=== PATIENT | female | born 2000 | race Caucasian/White ===

== ENCOUNTER 2024-04-08 12:59 | Observation (INO) | payer OTHER, SELFPAY ==
--- NOTE | 2024-04-08 13:18 | US_ITS ---
[place] [id number] Patient Name: RYLEY CARRILLO MRN: [id number] date: 2000 Sex: F Assigned Patient Location: [facility] Current Patient Location: [facility] Accession/Order Number: [id number] Exam Date: 04/08/2024 13:40 Report Date: 04/08/2024 14:28 At the request of: LEX CALDERON Procedure: US OB transvaginal EXAMINATION: US OB transvaginal HISTORY: Dating US COMPARISON: No relevant comparison available. FINDINGS: Transvaginal images Rockwell intrauterine gestation Gestational sac: 1.4 cm, 6 weeks 3 days CRL: 5.1 mm, 6 weeks 2 days Yolk sac: 2.3 mm Heart rate: 103 BPM Cervix: Closed, 4.3 cm The uterus is normal, anteverted The right ovary is normal measuring 4.3 x 2.4 x 2.5 cm The left ovary measures 4.0 x 2.7 x 2.0 cm, corpus luteal cyst Clinical age: 7 weeks 6 days Clinical TAYLOR: 11/19/2024 Ultrasound age: 6 weeks 2 days Ultrasound TAYLOR: 11/30/2024 US/US OB transvaginal IMPRESSION: Viable rockwell intrauterine gestation measuring 6 weeks 2 days Electronically authenticated by: BRYSON STAUFFER Date: 04/08/2024 14:28
[2024-04-08] MEDS: ONDANSETRON PF 4 MG/2 ML VIAL 8 MG IV ×2 (14:10→20:59)
[2024-04-08] MEDS: MULTIVIT INFUSN ADULT K IV (14:20)
[2024-04-08] MEDS: LACTATED RINGER S IV (14:20)
[2024-04-08 14:54] LABS: Bilirubin Urine NEGATIVE (NEGATIVE); Blood Urine NEGATIVE (NEGATIVE); Clarity Urine CLEAR (CLEAR); Color Urine YELLOW (YELLOW); Glucose Urine UA NEGATIVE (NEGATIVE); Ketones Urine >=80 mg/dL (NEGATIVE); Leukocyte Esterase Urine NEGATIVE (NEGATIVE); Nitrite Urine NEGATIVE (NEGATIVE); Protein Urine TRACE mg/dL (NEG/TRACE); Specific Gravity Urine >=1.030 (1.005-1.025); Urobilinogen Urine 0.2 EU/dL (0.2-1.0)
[2024-04-08 14:56] LABS: Urine Microscopic Indicated NO
[2024-04-08 15:56] VITALS: TEMP 37
[2024-04-08 15:57] VITALS: BP 104/57; PULSE 75
[2024-04-08 21:03] VITALS: BP 100/56; PULSE 73
== END 2024-04-08 21:15 | disposition home or self-care (01) ==
PROVIDERS: Admitting Provider Midwife; Visit Provider Midwife
DX: O21.0 Mild hyperemesis gravidarum (principal); Z3A.01 Less than 8 weeks gestation of pregnancy
CPT/HCPCS: 76817; 81003; 96374; 96375; 96376; G0378; G0379; J2405

== ENCOUNTER 2024-07-14 12:43 | Outpatient (OUT) | payer OTHER, SELFPAY ==
--- NOTE | 2024-07-14 12:49 | US_ITS ---
[address] [address] Patient Name: RYLEY CARRILLO MRN: [id number] date: 2000 Sex: F Assigned Patient Location: US Current Patient Location: Accession/Order Number: [id number] Exam Date: 07/14/2024 13:00 Report Date: 07/15/2024 04:40 At the request of: LEX CALDERON Procedure: US OB cervical length EXAMINATION: US OB anatomy, US OB cervical length HISTORY: O26.92 related condition COMPARISON: Ultrasound OB transvaginal 04/08/2024 TECHNIQUE: Transabdominal sonographic examination was performed for obstetrical and evaluation. FINDINGS: Number: 1 Heart Rate: 139.08 bpm H.B. /min Amniotic Fluid Volume: Subjectively normal. Placental Location: Anterior with lower margin 4.8 cm from os. Cervix Length: 4.35 cm ; closed. ANATOMY: Normal Structures -cerebellum, choroid plexus, cisterna magna, lateral cerebral ventricles, orbits, midline falx, hard palate, four-chamber heart, RVOT, LVOT, stomach, kidneys, bladder, umbilical cord insertion into abdomen, three-vessel cord, cervical spine, thoracic spine, lumbar spine, sacral spine, right upper extremity, left upper extremity, right lower extremity, left lower extremity. SUBOPTIMALLY SEEN: None ABNORMALITIES: None BIOMETRY: BPD: 4.63 cm; 20 weeks 0 days; 43.30 % HC: 17.80 cm; 20 weeks 2 days; 47.80 % AC: 14.52 cm; 19 weeks 6 days; 33.80 % FL: 2.97 cm; 19 weeks 1 day; 13 % EFW:302.61 g; 19.30 % FL/AC: 20.47 FL/BPD: 64.21 HC/AC: 1.23 GESTATIONAL AGE: Age by EDC: 20 weeks 1 day Age by current US: 19 weeks 6 days TAYLOR by current US: 2024-12-02 TAYLOR by EDC: 2024-11-30 US/US OB cervical length IMPRESSION: 1. Single live intrauterine with growth detailed above. Electronically authenticated by: ANA ESTRADA Date: 07/15/2024 04:40
--- NOTE | 2024-07-14 12:49 | US_ITS ---
[address] [address] Patient Name: RYLEY CARRILLO MRN: [id number] date: 2000 Sex: F Assigned Patient Location: US Current Patient Location: Accession/Order Number: [id number] Exam Date: 07/14/2024 13:00 Report Date: 07/15/2024 04:40 At the request of: LEX CALDERON Procedure: US OB anatomy EXAMINATION: US OB anatomy, US OB cervical length HISTORY: O26.92 related condition COMPARISON: Ultrasound OB transvaginal 04/08/2024 TECHNIQUE: Transabdominal sonographic examination was performed for obstetrical and evaluation. FINDINGS: Number: 1 Heart Rate: 139.08 bpm H.B. /min Amniotic Fluid Volume: Subjectively normal. Placental Location: Anterior with lower margin 4.8 cm from os. Cervix Length: 4.35 cm ; closed. ANATOMY: Normal Structures -cerebellum, choroid plexus, cisterna magna, lateral cerebral ventricles, orbits, midline falx, hard palate, four-chamber heart, RVOT, LVOT, stomach, kidneys, bladder, umbilical cord insertion into abdomen, three-vessel cord, cervical spine, thoracic spine, lumbar spine, sacral spine, right upper extremity, left upper extremity, right lower extremity, left lower extremity. SUBOPTIMALLY SEEN: None ABNORMALITIES: None BIOMETRY: BPD: 4.63 cm; 20 weeks 0 days; 43.30 % HC: 17.80 cm; 20 weeks 2 days; 47.80 % AC: 14.52 cm; 19 weeks 6 days; 33.80 % FL: 2.97 cm; 19 weeks 1 day; 13 % EFW:302.61 g; 19.30 % FL/AC: 20.47 FL/BPD: 64.21 HC/AC: 1.23 GESTATIONAL AGE: Age by EDC: 20 weeks 1 day Age by current US: 19 weeks 6 days TAYLOR by current US: 2024-12-02 TAYLOR by EDC: 2024-11-30 US/US OB anatomy IMPRESSION: 1. Single live intrauterine with growth detailed above. Electronically authenticated by: ANA ESTRADA Date: 07/15/2024 04:40
--- OUTSIDE RECORDS SUMMARY | 2024-07-14 12:53 | XMS_ITS | CCD ---
Author Organization [facility] Care Team Providers Care Radio Performer Name Role Phone Leah Cramer MD Primary Care Provider ISELA SCHMID Attending Unavailable HACKENBURG, LISA Clark Attending Unavailab le SHARMAINE, ISELA Brownlee Attending Unavailable HOPPER, TRICIA Clark Attending Unavailab le HOPPER, TRICIA Clark Attending Unavailab le SHARMAINE, ISELA Brownlee Attending Unavailable HOPPER, TRICIA Clark Attending Unavailab le HOPPER, TRICIA Clark Attending Unavailab le HOPPER, TRICIA Clark Attending Unavailab le SHARMAINE, ISELA Brownlee Attending Unavailable SHARMAINE, ISELA Brownlee Attending Unavailable SHARMAINE, ISELA Brownlee Attending Unavailable HOPPER, TRICIA Clark Attending Unavailab le SHARMAINE, ISELA Brownlee Attending Unavailable SHARMAINE, ISELA S Attending Unavailable HOPPER, TRICIA Clark Attending Unavailab le SHARMAINE, ISELA S Attending Unavailable FLORO, LEX Toribio Attending Unavailable SHARMAINE, ISELA Brownlee Attending Unavailable FLORO, LEX Toribio Attending Unavailable SHARMAINE, ISELA S Attending Unavailable HOPPER, TRICIA Clark Attending Unavailab le FLORO, LEX Toribio Attending Unavailable SHARMAINE, ISELA Brownlee Attending Unavailable HOPPER, TRICIA Clark Attending Unavailab le FLOROLEX Attending Unavailable Allergies Allergy Classification Reported Allergen(s) Allergy Type Date of Onset Reaction(s) Facility (17 sources) Peanut-Containin g Drug Products Drug Allergy 07-17-2023 [facility] Medications Current Medications Medication Drug Class(es) Dates Sig (Normalized) Sig (Original) [id number] 200 actuat albuterol 0.09 mg/actuat metered dose inhaler (17 sources) beta2-Adrenergic Agonist Start: 07-17-2023 End: 07-16-2024 take 2 puff(s) by inhalation every four hours for wheezing albuterol HFA 90 mcg/act inhaler Indications: Wheezing Inhale 2 puffs every 4 (four) hours if needed for wheezing 18 g 07/17/2023 07/16/2024 Active amoxicillin 500 mg oral capsule (2 sources) Penicillin-class Antibacterial Start: 05-26-2024 End: 06-02-2024 take 1 capsule by mouth in the morning amoxicillin (Amoxil) 500 MG capsule Indications: Other non-recurrent acute nonsuppurative otitis media of right ear Take 1 capsule (500 mg) by mouth in the morning and 1 capsule (500 mg) before bedtime. Do all this for 7 days. 14 capsule 05/26/2024 06/02/2024 Active fluticasone propionate 0.05 mg/actuat metered dose nasal spray (17 sources) Corticosteroid Start: 10-08-2023 End: 10-07-2024 take 1 spray(s) nasal route once daily fluticasone (Flonase) 50 MCG/ACT nasal spray Indications: Acute recurrent frontal sinusitis Administer 1 spray into each nostril Daily Shake gently. Before first use, prime pump. After use, clean tip and replace cap. 16 g 2 10/08/2023 10/07/2024 Active hydrOXYzine pamoate 25 mg oral capsule (17 sources) Antihistamine Start: 11-01-2023 take 1 capsule by mouth every eight hours as needed for anxiety and anxiety and anxiety hydrOXYzine pamoate (Vistaril) 25 MG capsule Indications: Anxiety Take 1 capsule (25 mg) by mouth every 8 (eight) hours if needed for itching or anxiety for up to 5 days 10 capsule 11/01/2023 Active ondansetron 8 mg oral tablet (13 sources) Serotonin-3 Receptor Antagonist Start: 06-20-2024 End: 07-20-2024 take 1 tablet by mouth every eight hours for nausea ondansetron (Zofran) 8 MG tablet Indications: Nausea/vomiting in Take 1 tablet (8 mg) by mouth every 8 (eight) hours if needed for nausea 20 tablet 1 06/20/2024 07/20/2024 Active Start: 05-08-2024 End: 06-12-2024 take 1 tablet by mouth every eight hours for nausea ondansetron (Zofran) 8 MG tablet Indications: Nausea/vomiting in Take 1 tablet (8 mg) by mouth every 8 (eight) hours if needed for nausea 20 tablet 1 05/08/2024 06/12/2024 Active sertraline 25 mg oral tablet (17 sources) Serotonin Reuptake Inhibitor Start: 04-24-2024 take 1 tablet by mouth once daily sertraline (Zoloft) 25 MG tablet Indications: Anxiety TAKE 1 TABLET(25 MG) BY MOUTH DAILY 90 tablet 04/24/2024 Active Completed/Discontinued Medications Medication Drug Class(es) Dates Sig (Normalized) Sig (Original) azithromycin 250 mg oral tablet (6 sources) Macrolide Antimicrobial Start: 06-05-2024 End: 06-12-2024 take 2 tablets by mouth once daily azithromycin (Zithromax) 250 MG tablet Indications: Earache on right Take 2 tablets (500 mg) by mouth Daily for 5 days 6 tablet 06/05/2024 06/12/2024 Discontinued (Therapy completed) Problems Active Problems Problem Classification Problem Date Documented Date Episodic/Chronic Anxiety disorders (20 sources) Anxiety; Translations: [Anxiety disorder, unspecified] Onset: 01-30-2023 01-30-2023 Chronic Mood disorders (20 sources) Depressive disorder; Translations: [Depression] Onset: 01-30-2023 01-30-2023 Chronic Other complications of (2 sources) Finding related to ; Translations: [ related conditions, unspecified, second trimester] 07-03-2024 Episodic Other ear and sense organ disorders (2 sources) Otalgia, right ear; Translations: [Otalgia, unspecified] 06-05-2024 Episodic Other ear and sense organ disorders (2 sources) Otalgia, left ear; Translations: [Otalgia, unspecified] 06-12-2024 Episodic Other and delivery including normal (4 sources) Normal ; Translations: [Encounter for supervision of other normal , second trimester] 06-05-2024 Episodic Other upper respiratory disease (2 sources) Allergic rhinitis; Translations: [Allergic rhinitis, unspecified] 06-12-2024 Chronic Otitis media and related conditions (2 sources) Acute secretory otitis media; Translations: [Other acute nonsuppurative otitis media, right ear] 05-26-2024 Episodic Past or Other Problems Problem Classification Problem Date Documented Da te Episodic/Chronic Mood disorders (17 sources) Mood disorders Onset: 11-15-2023 11-15-2023 Vital Signs Date Time Vital Sign Value Performing Clinician Jackelin christiansen 07-03-2024 11:25-0500 Body mass index (BMI) [Ratio] 20.8 kg/m2 Lex Raymond CNM Work Phone: [facility] 07-03-2024 11:25-0500 Body weight 56.7 kg Lex Raymond CNM Work Phone: [facility] 07-03-2024 11:25-0500 Diastolic blood pressure 70 mm[Hg] Lex Raymond CNM Work Phone: [facility] 07-03-2024 11:25-0500 Systolic blood pressure 110 mm[Hg] Lex Raymond CNM Work Phone: [facility] 06-12-2024 14:13-0400 Body mass index (BMI) [Ratio] 19.84 kg/m2 Tricia Hopper TELESALES PROFESSIONAL Work Phone: [facility] 06-12-2024 14:13-0400 Body temperature 97.3 [degF] Tricia Hopper TELESALES PROFESSIONAL Work Phone: [facility] 06-12-2024 14:13-0400 Body weight 54.07 kg Tricia Hopper TELESALES PROFESSIONAL Work Phone: [facility] 06-12-2024 14:13-0400 Diastolic blood pressure 62 mm[Hg] Tricia Hopper TELESALES PROFESSIONAL Work Phone: [facility] 06-12-2024 14:13-0400 Systolic blood pressure 100 mm[Hg] Tricia Hopper TELESALES PROFESSIONAL Work Phone: [facility] 06-05-2024 13:55-0400 Body mass index (BMI) [Ratio] 19.64 kg/m2 Lex Daviso CNM Work Phone: [facility] 06-05-2024 13:55-0400 Body weight 53.52 kg Lex Raymond CNM Work Phone: [facility] 06-05-2024 13:55-0400 Diastolic blood pressure 60 mm[Hg] Lex Raymond CNM Work Phone: [facility] 06-05-2024 13:55-0400 Systolic blood pressure 100 mm[Hg] Lex Raymond CNM Work Phone: [facility] 05-26-2024 16:50-0400 Body mass index (BMI) [Ratio] 19.8 kg/m2 Tricia Hopper TELESALES PROFESSIONAL Work Phone: [facility] 05-26-2024 16:50-0400 Body temperature 97.3 [degF] Tricia Hopper TELESALES PROFESSIONAL Work Phone: [facility] 05-26-2024 16:50-0400 Body weight 53.98 kg Tricia Hopper TELESALES PROFESSIONAL Work Phone: [facility] 05-26-2024 16:50-0400 Diastolic blood pressure 60 mm[Hg] Tricia Hopper TELESALES PROFESSIONAL Work Phone: [facility] 05-26-2024 16:50-0400 Systolic blood pressure 92 mm[Hg] Tricia Hopper TELESALES PROFESSIONAL Work Phone: [facility] Encounters Encounter Date Encounter Type Care Provider Facility Start: 07-14-2024 End: 07-14-2024 Bamboo flowsheet Isela S Sharmaine PRACTICE MANAGER-S Work Phone: [facility] Start: 07-14-2024 End: 07-14-2024 Bamboo flowsheet Isela S Sharmaine PRACTICE MANAGER-S Work Phone: [facility] Start: 07-03-2024 End: 07-03-2024 Bamboo flowsheet Lex Raymond CNM Work Phone: [facility] Start: 07-03-2024 End: 07-03-2024 Bamboo flowsheet Lex Raymond CNM Work Phone: [facility] Start: 07-03-2024 End: 07-03-2024 Subsequent care visit Lex Raymond CNM Work Phone: [facility] Comment on above: Encounter for prenat al care of first , second trimester (Primary Dx); related condition in second trimester Start: 07-03-2024 End: 07-03-2024 ambulatory LEX RAYMOND Not Available Start: 06-12-2024 End: 06-12-2024 Bamboo flowsheet Tricia Hopper TELESALES PROFESSIONAL Work Phone: [facility] Start: 06-12-2024 End: 06-12-2024 Bamboo flowsheet Tricia Hopper TELESALES PROFESSIONAL Work Phone: [facility] Start: 06-12-2024 End: 06-12-2024 Office outpatient visit 15 minutes Tricia Hopper TELESALES PROFESSIONAL Work Phone: [facility] Comment on above: Left ear pain (Prima ry Dx); Allergic rhinitis, unspecified seasonality, unspecified trigger Start: 06-12-2024 End: 06-12-2024 ambulatory TRICIA HOPPER Not Available Start: 06-11-2024 End: 06-11-2024 Telephone encounter Lex Raymond CNM Work Phone: [facility] Start: 06-09-2024 End: 06-09-2024 Bamboo flowsheet Isela S Sharmaine PRACTICE MANAGER-S Work Phone: [facility] Start: 06-09-2024 End: 06-09-2024 Bamboo flowsheet Isela S Sharmaine PRACTICE MANAGER-S Work Phone: [facility] Start: 06-09-2024 End: 06-09-2024 ambulatory ISELA S SHARMAINE Not Available Start: 06-05-2024 End: 06-05-2024 Bamboo flowsheet Lex L Floro CNM Work Phone: [facility] Start: 06-05-2024 End: 06-05-2024 Bamboo flowsheet Lex Catarino Floro CNM Work Phone: [facility] Start: 06-05-2024 End: 06-05-2024 Subsequent care visit Lex Daviso CNM Work Phone: [facility] Comment on above: Earache on right (Pr imary Dx); Encounter for supervision of other normal , second trimester Start: 06-05-2024 End: 06-05-2024 ambulatory LEX L FLORO Not Available Start: 05-26-2024 End: 05-26-2024 Office outpatient visit 15 minutes Tricia Hopper TELESALES PROFESSIONAL Work Phone: [facility] Comment on above: Other non-recurrent acute nonsuppurative otitis media of right ear (Primary Dx) Start: 05-26-2024 End: 05-26-2024 ambulatory TRICIA HOPPER Not Available Start: 05-26-2024 End: 05-26-2024 Bamboo flowsheet Tricia Hopper TELESALES PROFESSIONAL Work Phone: [facility] Start: 05-26-2024 End: 05-26-2024 Bamboo flowsheet Tricia Hopper TELESALES PROFESSIONAL Work Phone: [facility] Start: 05-12-2024 End: 05-12-2024 ambulatory ISELA S SHARMAINE Not Available Start: 05-08-2024 End: 05-08-2024 ambulatory LEX L FLORO Not Available Start: 04-16-2024 End: 04-16-2024 ambulatory ISELA S SHARMAINE Not Available Start: 04-08-2024 End: 04-08-2024 ambulatory LEX L FLORO Not Available Start: 03-24-2024 End: 03-24-2024 ambulatory ISELA S SHARMAINE Not Available Start: 03-03-2024 End: 03-03-2024 ambulatory ISELA S SHARMAINE Not Available Start: 02-28-2024 End: 02-28-2024 ambulatory TRICIA A HOPPER Not Available Start: 01-21-2024 End: 01-21-2024 ambulatory ISELA S SHARMAINE Not Available Start: 12-24-2023 End: 12-24-2023 ambulatory ISELA S SHARMAINE Not Available Start: 12-03-2023 End: 12-03-2023 ambulatory ISELA S SHARMAINE Not Available Start: 11-15-2023 End: 11-15-2023 ambulatory TRICIA A HOPPER Not Available Start: 11-01-2023 End: 11-01-2023 ambulatory TRICIA A HOPPER Not Available Start: 10-29-2023 End: 10-29-2023 ambulatory ISELA S SHARMAINE Not Available Start: 10-15-2023 End: 10-15-2023 ambulatory TRICIA A HOPPER Not Available Start: 10-08-2023 End: 10-08-2023 ambulatory TRICIA A HOPPER Not Available Start: 10-01-2023 End: 10-01-2023 ambulatory ISELA S SHARMAINE Not Available Start: 09-10-2023 End: 09-10-2023 ambulatory LISA A HACKENBURG Not Available Start: 09-03-2023 End: 09-03-2023 ambulatory ISELA S SHARMAINE Not Available Start: 07-30-2023 End: 07-30-2023 ambulatory TRICIA A HOPPER Not Available Start: 07-25-2023 End: 07-25-2023 ambulatory ISELA S SHARMAINE Not Available Start: 07-17-2023 End: 07-17-2023 ambulatory TRICIA A HOPPER Not Available Procedures Date Procedure Procedure Detail Performing Clinician Start: 07-14-2024 End: 07-14-2024 Psychotherapy w/patient 60 minutes Anxiety Isela S Baudette PRACTICE MANAGER-S Work Phone: Comment on above: Anxiety; Depression, unspecified depression type ([facility]) Start: 06-09-2024 End: 06-09-2024 Psychotherapy w/patient 60 minutes Anxiety Isela S Sharmaine PRACTICE MANAGER-S Work Phone: Comment on above: Anxiety; Depression, unspecified depression type (CMS/HCC) Plan of Treatment Date Care Activity Detail Author Start: 08-27-2024 End: 08-27-2024 Social Work 08/27/2024 9:00 AM EST Social Work [facility] [address] [place] [place] [address] Isela Schmid LISW-S [address] [place] [address] [facility] Start: 07-31-2024 End: 07-31-2024 Patient encounter procedure 07/31/2024 1:30 PM EST Routine [facility] [address] [place] [phone] Lex Raymond, CNM [address] [place] [address] [facility] Start: 07-14-2024 End: 07-14-2024 Social Work [facility] Comment on above: Arrived Start: 07-03-2024 End: 07-03-2025 US for US OB 14+ weeks anatomy scan Imaging Routine related condition in second trimester Expected: 07/03/2024, Expires: 07/03/2025 [facility] Work Phone: Comment on above: Expected: 07/03/2024 , Expires: 07/03/2025 Start: 07-03-2024 End: 07-03-2024 Patient encounter procedure [facility] Comment on above: Arrived Start: 06-12-2024 End: 06-12-2024 Patient encounter procedure 06/12/2024 2:00 PM EDT Office Visit [facility] [address] [place] [phone] Tricia Hopper NP [address] [place] [address] Arrived [facility] Comment on above: Arrived Start: 06-09-2024 End: 06-09-2024 Social Work 06/09/2024 9:00 AM EDT Social Work [facility] [address] [place] [facility] [place] [place] [address] Isela Schmid LISW-S [address] [place] [address] [facility] Start: 06-05-2024 End: 06-05-2024 Patient encounter procedure [facility] Comment on above: Arrived Start: 05-26-2024 End: 05-26-2024 Patient encounter procedure 05/26/2024 5:00 PM EDT Office Visit [facility] [address] [place] [phone] Tricia Hopper NP [address] [facility], [place] [id number] Arrived [facility] Comment on above: Arrived Start: 04-13-2024 Influenza vaccination Influenz a Vaccine (#1) [facility] Immunizations Immunization Date Immunization Notes Care Provider [facility] 11-01-2004 diphtheria, tetanus toxoids and acellular pertussis vaccine Tricia Hopper TELESALES PROFESSIONAL Work Phone: [facility] 11-01-2004 measles, mumps and rubella virus vaccine Tricia Hopper TELESALES PROFESSIONAL Work Phone: [facility] 11-01-2004 poliovirus vaccine, inactivated Tricia Hopper TELESALES PROFESSIONAL Work Phone: [facility] 02-25-2001 diphtheria, tetanus toxoids and acellular pertussis vaccine, unspecified formulation Tricia Hopper TELESALES PROFESSIONAL Work Phone: [facility] 02-25-2001 haemophilus influenz ae type b vaccine, conjugate unspecified formulation Tricia Hopper TELESALES PROFESSIONAL Work Phone: [facility] 12-24-2000 measles, mumps and rubella virus vaccine Tricia Hopper TELESALES PROFESSIONAL Work Phone: [facility] 07-13-2000 diphtheria, tetanus toxoids and acellular pertussis vaccine, unspecified formulation Tricia Hopper TELESALES PROFESSIONAL Work Phone: [facility] 07-13-2000 haemophilus influenz ae type b conjugate and Hepatitis B vaccine Tricia Hopper TELESALES PROFESSIONAL Work Phone: [facility] 07-13-2000 poliovirus vaccine, inactivated Tricia Hopper TELESALES PROFESSIONAL Work Phone: [facility] 05-11-2000 diphtheria, tetanus toxoids and acellular pertussis vaccine, unspecified formulation Tricia Hopper TELESALES PROFESSIONAL Work Phone: [facility] 05-11-2000 haemophilus influenz ae type b vaccine, conjugate unspecified formulation Tricia Hopper TELESALES PROFESSIONAL Work Phone: [facility] 05-11-2000 poliovirus vaccine, inactivated Tricia Hopper TELESALES PROFESSIONAL Work Phone: [facility] 03-09-2000 diphtheria, tetanus toxoids and acellular pertussis vaccine, unspecified formulation Tricia Hopper TELESALES PROFESSIONAL Work Phone: [facility] 03-09-2000 haemophilus influenz ae type b conjugate and Hepatitis B vaccine Tricia Hopper TELESALES PROFESSIONAL Work Phone: [facility] 03-09-2000 poliovirus vaccine, inactivated Tricia Hopper TELESALES PROFESSIONAL Work Phone: [facility] 1999 hepatitis B vaccine, pediatric or pediatric/adolescent dosage Tricia Hopper TELESALES PROFESSIONAL Work Phone: [facility] Payers Date Payer Category Payer Private Health Insurance [facility] [id number] 2022 Unknown [id number] 1969 Unknown [id number] 2.16.840.1.882011.3.579 .2.1258 1969 Unknown [id number] 2.16.840.1.145219.3.579 .2.1258 1969 Unknown [id number] 2.16840.1.559547.3.579 .2.1258 1969 Unknown [id number] 2.16.840.1.904448.3.579 .2.1258 1969 Unknown [id number] 2.16840.1.444666.3.579 .2.1258 1969 Unknown [id number] 2.16.840.1.532286.3.579 .2.1258 1969 Unknown [id number] 2.16.840.1.716436.3.579 .2.1258 1969 Unknown [id number] 2.16.840.1.510896.3.579 .2.1258 1969 Unknown [id number] 2.16.840.1.659793.3.579 .2.1258 1969 Unknown [id number] 2.16.840.1.662141.3.579 .2.1258 1969 Unknown [id number] 2.16.840.1.532659.3.579 .2.1258 1969 Unknown [id number] 2.16.840.1.056410.3.579 .2.1258 1969 Unknown [id number] 2.16.840.1.290967.3.579 .2.1258 1969 Unknown [id number] 2.16.840.1.256299.3.579 .2.1258 1969 Unknown [id number] 2.16.840.1.227953.3.579 .2.1258 1969 Unknown [id number] 2.16.840.1.212671.3.579 .2.1258 1969 Unknown [id number] 2.16.840.1.371117.3.579 .2.1258 1969 Unknown [id number] 2.16.840.1.473686.3.579 .2.1258 1969 Unknown [id number] 2.16.840.1.417759.3.579 .2.1258 1969 Unknown [id number] 2.16.840.1.077728.3.579 .2.1258 1969 Unknown [id number] 2.16.840.1.599864.3.579 .2.1258 1969 Unknown [id number] 2.16.840.1.429742.3.579 .2.1258 1969 Unknown [id number] 2.16.840.1.502770.3.579 .2.1258 1969 Unknown [id number] 2.16.840.1.784285.3.579 .2.1258 1969 Unknown [id number] 2.16.840.1.214570.3.579 .2.1258 1969 Unknown [id number] 2.16.840.1.795963.3.579 .2.9 Social History Date Type Detail Facility Start: 07-17-2023 Tobacco smoking stat [facility] Never smoked tobacco [facility] Start: 07-17-2023 Tobacco use and exposure Smokeless t obacco non-user [facility] Start: 04-08-2024 End: 06-12-2024 Alcoholic beverage intake Lifetime non-drinker (finding) [facility] Start: 11-15-2023 End: 04-08-2024 History of Social function [facility] Start: 11-15-2023 End: 04-08-2024 Tobacco use panel [facility] Start: 02-01-2023 Education 21 [facility] Start: 02-01-2023 Alcohol Comment caffeine: 1-2 cups per day coffee, soda/pop [facility] Start: 03-09-2024 [facility] Start: 2000 Sex assigned at Not on file N [facility] Start: 10-25-2022 Gender identity Identifies as female gender (finding) [facility] Clinical Notes 05-26-2024 to 07-03-2024 Lex Raymond CNM - 07/03/2024 11:30 AM ESTChsal Hopper NP - 06/12/2024 2:00 PM EDTTelephone Encounter - Dustin Ho - 06/11/2024 10:20 AM EDTLex Raymond CNM - 06/05/2024 2:00 PM EDT Note Date & Type Note Facility 07-03-2024 History of Presen t illness Narrative Subjective No chief complaint on file. Elena Chopra is a 23 y.o. at 18w4d with a working estimated date of delivery of 11/30/2024, by Ultrasound who presents for a routine visit. She denies vaginal bleeding, leakage of fluid, decreased movements, or contractions. OB History Para Term AB Living 3 1 SAB IAB Ectopic Multiple Live Births 1 # Outcome Date GA Lbr Paxton/2nd Weight Sex Type Anes PTL Lv 3 Current 2 1 SAB Her is complicated by: GBS+ urine The following portions of the chart were reviewed this encounter and updated as appropriate: Objective Physical Exam weight: 125 lb Expected Total Weight Gain: 27 lb-39 lb Pregravid BMI: 18.31 BP: 110/70 Urine protein-negative Urine glucose-negative Labs: reviewed Imaging Assessment/Plan Diagnoses and all orders for this visit: Encounter for care of first , second trimester related condition in second trimester - US OB 14+ weeks anatomy scan; Future Continue vitamin. Labs reviewed. Rhogam B+ positive GTT at 28 weeks Follow up in 4 weeks for a routine visit. documented in this encounter [facility] 06-12-2024 History of Presen t illness Narrative Images from the original note were not included. Elena Chopra is a 23 y.o. female presents with chief complaint of Follow-up HPI: HPI Patient is present with ongoing ear pain. She states the left is worse than the right. She c/o ongoing headaches. She finished the zpak yesterday. Patient is currently about 15 weeks . SUBJECTIVE: MEDICATIONS: Current Outpatient Medications Medication Instructions albuterol HFA 90 mcg/act inhaler 2 puffs, Inhalation, Every 4 hours PRN fluticasone (Flonase) 50 MCG/ACT nasal spray 1 spray, Each Nostril, Daily, Shake gently. Before first use, prime pump. After use, clean tip and replace cap. hydrOXYzine pamoate (VISTARIL) 25 mg, Oral, Every 8 hours PRN sertraline (ZOLOFT) 25 mg, Oral, Daily I have reviewed and reconciled the history and medication list with the patient today. REVIEW OF SYMPTOMS: Review of Systems Constitutional: Negative for chills and fatigue. HENT: Positive for ear pain. Negative for ear discharge, rhinorrhea and sore throat. Eyes: Negative for pain and redness. Respiratory: Negative for cough and chest tightness. Cardiovascular: Negative for chest pain and palpitations. Gastrointestinal: Negative for abdominal distention and abdominal pain. Genitourinary: Negative for difficulty urinating and frequency. Musculoskeletal: Negative for arthralgias and gait problem. Skin: Negative. Neurological: Negative for dizziness and numbness. Endocrine: Negative. Allergic/Immunologic: Negative. OBJECTIVE: Visit Vitals LMP 02/13/2024 (Exact Date) OB Status Smoking Status Never Physical Exam Vitals reviewed. HENT: Right Ear: Hearing and tympanic membrane normal. Left Ear: Hearing and tympanic membrane normal. Cardiovascular: Rate and Rhythm: Normal rate and regular rhythm. Pulses: Normal pulses. Heart sounds: Normal heart sounds. Pulmonary: Effort: Pulmonary effort is normal. Breath sounds: Normal breath sounds. Abdominal: General: Abdomen is flat. Bowel sounds are normal. Palpations: Abdomen is soft. Musculoskeletal: General: Normal range of motion. Skin: General: Skin is warm and dry. Neurological: General: No focal deficit present. Mental Status: She is oriented to person, place, and time. ASSESSMENT AND PLAN: Assessment/Plan Diagnoses and all orders for this visit: Left ear pain-no infection. Slight fluid behind ear drum. Allergic rhinitis, unspecified seasonality, unspecified trigger Put cool mist vaporizer in room every night. documented in this encounter [facility] 06-11-2024 Telephone encount er Note Was in - ear inf- still having pain and today is last day of antibiotic. Maurice Jiménez [phone] [facility] 06-11-2024 Miscellaneous Notes Formattin g of this note might be different from the original. Was in - ear inf- still having pain and today is last day of antibiotic. Maurice Jiménez [phone] documented in this encounter [facility] 06-05-2024 History of Presen t illness Narrative Subjective No chief complaint on file. Elena Chopra is a 23 y.o. at 14w4d with a working estimated date of delivery of 11/30/2024, by Ultrasound who presents for a routine visit. She denies vaginal bleeding, leakage of fluid, decreased movements, or contractions. OB History Para Term AB Living 3 1 SAB IAB Ectopic Multiple Live Births 1 # Outcome Date GA Lbr Paxton/2nd Weight Sex Type Anes PTL Lv 3 Current 2 1 SAB Her is complicated by: right ear pain. She saw Tricia Hopper last Sunday and was prescribed amoxicillin for a ear infection. Pt states that she took the amoxicillin for 3 days and vomited 2-3 times a day while taking it. She stopped taking it and stopped vomiting. She states she still has pain in her right ear The following portions of the chart were reviewed this encounter and updated as appropriate: Objective Physical Exam weight: 118 lb Expected Total Weight Gain: 27 lb-39 lb Pregravid BMI: 18.31 BP: 100/60 Urine protein-negative Urine glucose-negative Labs: reviewed Imaging Assessment/Plan Diagnoses and all orders for this visit: Earache on right - azithromycin (Zithromax) 250 MG tablet; Take 2 tablets (500 mg) by mouth Daily for 5 days Encounter for supervision of other normal , second trimester Ears: let ear normal. Right ear-tympanic membrane is injected Patient was given Amoxicillin and vomited with every dose so she stopped it after 3 days. Rx for Z-josh sent to pharmacy and see if she can tolerate that. PVU and agrees with plan of care. Continue vitamin. Labs reviewed. Rhogam: not needed patient is B+ positive blood type GTT at 28 weeks Follow up in 4 weeks for a routine visit. documented in this encounter [facility] 05-26-2024 History of Presen t illness Narrative Images from the original note were not included. Elena Chopra is a 23 y.o. female presents with chief complaint of URI HPI: HPI Patient is present with c/o nasal congestion, post-nasal drip, and irritated throat. Patient states this started a week ago. She is also having some sinus headaches and pressure in right ear. Patient is currently about 13 weeks . SUBJECTIVE: MEDICATIONS: Current Outpatient Medications Medication Instructions albuterol HFA 90 mcg/act inhaler 2 puffs, Inhalation, Every 4 hours PRN fluticasone (Flonase) 50 MCG/ACT nasal spray 1 spray, Each Nostril, Daily, Shake gently. Before first use, prime pump. After use, clean tip and replace cap. hydrOXYzine pamoate (VISTARIL) 25 mg, Oral, Every 8 hours PRN ondansetron (ZOFRAN) 8 mg, Oral, Every 8 hours PRN sertraline (ZOLOFT) 25 mg, Oral, Daily I have reviewed and reconciled the history and medication list with the patient today. REVIEW OF SYMPTOMS: Review of Systems Constitutional: Negative for chills and fatigue. HENT: Negative for ear discharge, ear pain, rhinorrhea and sore throat. Eyes: Negative for pain and redness. Respiratory: Negative for cough and chest tightness. Cardiovascular: Negative for chest pain and palpitations. Gastrointestinal: Negative for abdominal distention and abdominal pain. Genitourinary: Negative for difficulty urinating and frequency. Musculoskeletal: Negative for arthralgias and gait problem. Skin: Negative. Neurological: Negative for dizziness and numbness. Endocrine: Negative. Allergic/Immunologic: Negative. OBJECTIVE: Visit Vitals Temp 97.3 F (Temporal) Wt 119 lb LMP 02/13/2024 (Exact Date) BMI 19.80 kg/m OB Status Smoking Status Never BSA 1.57 m Physical Exam Vitals reviewed. HENT: Right Ear: Tympanic membrane is injected. Left Ear: Tympanic membrane normal. Ears: Cardiovascular: Rate and Rhythm: Normal rate and regular rhythm. Pulses: Normal pulses. Heart sounds: Normal heart sounds. Pulmonary: Effort: Pulmonary effort is normal. Breath sounds: Normal breath sounds. Abdominal: General: Abdomen is flat. Bowel sounds are normal. Palpations: Abdomen is soft. Musculoskeletal: General: Normal range of motion. Skin: General: Skin is warm and dry. Neurological: General: No focal deficit present. Mental Status: She is oriented to person, place, and time. ASSESSMENT AND PLAN: Assessment/Plan Diagnoses and all orders for this visit: Other non-recurrent acute nonsuppurative otitis media of right ear - amoxicillin (Amoxil) 500 MG capsule; Take 1 capsule (500 mg) by mouth in the morning and 1 capsule (500 mg) before bedtime. Do all this for 7 days. documented in this encounter [facility] Evaluation note Diagnosis Other non-recurrent acute nonsuppurative otitis media of right ear- Primary [facility] Diagnosis Earache on right- Primary Encounter for supervision of other normal , second trimester [facility] Diagnosis Anxiety Anxiety state, unspecified Depression, unspecified depression type (CMS/[facility]) [facility] Diagnosis Left ear pain- Primary Unspecified otalgia Allergic rhinitis, unspecified seasonality, unspecified trigger [facility] Diagnosis Encounter for care of first , second trimester- Primary related condition in second trimester [facility] Diagnosis Anxiety Anxiety state, unspecified Depression, unspecified depression type (CMS/HCC) documented in this encounter [facility] Summary Purpose Family History No Family History Records Found Advance Directives No Advanced Directives Records Found Additional Source Comments Care Teams (unrecognized sec tion and content) Radio Performer Relationship Specialty Start Date End Date Leah Cramer MD [address] [place] [address] PCP - General Family Medicine 12/19/22 Radio Performer Relationship Specialty Start Date End Date Leah Cramer MD [address] [place] [address] PCP - General Family Medicine 12/19/22 Radio Performer Relationship Specialty Start Date End Date Leah Cramer MD [address] [place] [address] PCP - General Family Medicine 12/19/22 Radio Performer Relationship Specialty Start Date End Date Leah Cramer MD [address] [place] [address] PCP - General Family Medicine 12/19/22 Radio Performer Relationship Specialty Start Date End Date Leah Cramer MD [address] [place] [address] PCP - General Family Medicine 12/19/22 Radio Performer Relationship Specialty Start Date End Date Leah Cramer MD [address] [place] [address] PCP - General Family Medicine 12/19/22 Radio Performer Relationship Specialty Start Date End Date Leah Cramer MD [address] [place] [address] PCP - General Family Medicine 12/19/22 Reason for Visit (unrecogniz ed section and content) Reason Comments URI Reason Comments counseling session Reason Comments Follow-up INFORMATION SOURCE (unrecogn ized section and content) DATE CREATED AUTHOR 07/08/2024 [facility] FOR RECORDS PERTAINING TO PATIENTS WHO ARE OR HAVE BEEN ENROLLED IN A CHEMICAL DEPENDENCY/SUBSTANCEABUSE PROGRAM, SOME INFORMATION MAY BE OMITTED. This clinical summary was aggregated from multiple sources. Caution should be exercised in using it in the provision of clinical care. This summary normalizes information from multiple sources, and as a consequence, information in this document may materially change the coding, format and clinical context of patient data. In addition, data may be omitted in some cases. CLINICAL DECISIONS SHOULD BE BASED ON THE PRIMARY CLINICAL RECORDS. [facility] [employer] [facility]. provides no warranty or guarantee of the accuracy or completeness of information in this document.
== END 2024-07-14 12:44 | disposition home or self-care (01) ==
LOC: US 12:43
PROVIDERS: Visit Provider Midwife
DX: O26.92 Pregnancy related conditions, unspecified, second trimester (principal); Z3A.20 20 weeks gestation of pregnancy
CPT/HCPCS: 76805; 76817

== ENCOUNTER 2024-09-22 12:56 | Outpatient (OUT) | payer OTHER, SELFPAY ==
--- NOTE | 2024-09-22 13:00 | US_ITS ---
[address] [address] Patient Name: RYLEY CARRILLO MRN: [id number] date: 2000 Sex: F Assigned Patient Location: [place] Current Patient Location: [place] Accession/Order Number: [id number] Exam Date: 09/22/2024 13:00 Report Date: 09/22/2024 13:32 At the request of: LEX CALDERON Procedure: US OB growth EXAMINATION: US OB growth HISTORY: Related Condition Third Trimester COMPARISON: No relevant comparison available. FINDINGS: Heart Rate: 150.84 bpm Amniotic Fluid Volume: 11.9 cm, largest fluid pocket 6.9 cm Number: 1 Position: Cephalic presentation, longitudinal lie BIOMETRY: BPD: 7.86 cm; 31 weeks 4 days; 80 % HC: 28.62 cm; 31 weeks 3 days; 52.40 % AC: 26.72 cm; 30 weeks 6 days; 66.10 % FL: 5.37 cm; 28 weeks 3 days; 4.80 % EFW: 1529.55 g; 38.90 %, 3 lbs. 6 oz. FL/AC: 20.11 FL/BPD: 68.36 HC/AC: 1.07 GESTATIONAL AGE: Age by EDC: 30 weeks 1 day TAYLOR by EDC: 2024-11-30 Age by US: 30 weeks 4 days TAYLOR by US: 2024-11-27 US/US OB growth IMPRESSION: Normal interval growth Electronically authenticated by: BRYSON STAUFFER Date: 09/22/2024 13:32
== END 2024-09-22 12:57 | disposition home or self-care (01) ==
PROVIDERS: Visit Provider Midwife
DX: O26.93 Pregnancy related conditions, unspecified, third trimester (principal); Z3A.30 30 weeks gestation of pregnancy
CPT/HCPCS: 76816

== ENCOUNTER 2024-10-23 15:32 | Outpatient (OUT) | payer OTHER, SELFPAY ==
[2024-10-23 15:45] VITALS: BP 113/73; PULSE 91
[2024-10-23 15:46] VITALS: TEMP 35.8
--- OUTSIDE RECORDS SUMMARY | 2024-10-23 15:47 | XMS_ITS | CCD ---
Author Organization [facility] Care Team Providers Care Sales And Marketing Administrator Name Role Phone Leah Cramer MD Primary Care Provider LEX RAYMOND Attending Unavailable SHARMAINE, ISELA Brownlee Attending Unavailable FLORO, LEX Toribio Attending Unavailable LI, TRICIA Clark Attending Unavailab le SHARMAINE, ISELA Brownlee Attending Unavailable IL, TRICIA Clark Attending Unavailab le LI, TRICIA Clark Attending Unavailab le SHARMAINE, ISELA S Attending Unavailable SHARMAINE, ISELA S Attending Unavailable SHARMAINE, ISELA S Attending Unavailable LI, TRICIA Clark Attending Unavailab le SHARMAINE, ISELA S Attending Unavailable SHARMAINE, ISELA S Attending Unavailable FLORO, LEX Toribio Attending Unavailable SHARMAINE, ISELA S Attending Unavailable FLORO, LEX Toribio Attending Unavailable SHARMAINE, ISELA S Attending Unavailable LI, TRICIA Clark Attending Unavailab le FLORO, LEX Toribio Attending Unavailable SHARMAINE, ISELA S Attending Unavailable LI, TRICIA Clark Attending Unavailab le FLORO, LEX Toribio Attending Unavailable SHARMAINE, ISELA S Attending Unavailable FLORO, LEX Toribio Attending Unavailable SHARMAINE, ISELA S Attending Unavailable FLORO, LEX Toribio Attending Unavailable Allergies Allergy Classification Reported Allergen(s) Allergy Type Date of Onset Reaction(s) Facility (20 sources) Peanut-Containin g Drug Products Drug Allergy 07-17-2023 [facility] Medications Current Medications Medication Drug Class(es) Dates Sig (Normalized) Sig (Original) [id number] 200 actuat albuterol 0.09 mg/actuat metered dose inhaler (20 sources) beta2-Adrenergic Agonist Start: 07-17-2023 End: 07-16-2024 take 2 puff(s) by inhalation every four hours for wheezing albuterol HFA 90 mcg/act inhaler Indications: Wheezing Inhale 2 puffs every 4 (four) hours if needed for wheezing 18 g 07/17/2023 Active amoxicillin 500 mg oral capsule (2 [...] 7 days. 14 capsule 05/26/2024 06/02/2024 Active docusate sodium 100 mg oral capsule (9 sources) Start: 09-09-2024 End: 01-07-2025 take 1 capsule by mouth in the morning docusate sodium (Colace) 100 MG capsule Indications: Iron deficiency anemia, unspecified iron deficiency anemia type Take 1 capsule (100 mg) by mouth in the morning and 1 capsule (100 mg) before bedtime. 60 capsule 3 09/09/2024 01/07/2025 Active ferrous sulfate 325 mg delayed release oral tablet (9 sources) Start: 09-09-2024 End: 09-09-2025 take 1 tablet by mouth in the morning ferrous sulfate (Fe Tabs) 325 (65 Fe) MG EC tablet Indications: Iron deficiency anemia, unspecified iron deficiency anemia type Take 1 tablet (325 mg) by mouth in the morning and 1 tablet (325 mg) before bedtime. Do not crush, chew, or split.. 60 tablet 11 09/09/2024 09/09/2025 Active fluticasone propionate 0.05 mg/actuat metered dose nasal spray (20 sources) Corticosteroid Start: 10-08-2023 End: 10-07-2024 take 1 spray(s) nasal route once daily fluticasone (Flonase) 50 MCG/ACT nasal spray Indications: Acute recurrent frontal sinusitis Administer 1 spray into each nostril Daily Shake gently. Before first use, prime pump. After use, clean tip and replace cap. 16 g 2 10/08/2023 Active hydrOXYzine pamoate 25 mg oral capsule (20 sources) Antihistamine Start: 11-01-2023 take 1 capsule by mouth every eight hours as needed for anxiety and anxiety and anxiety hydrOXYzine pamoate (Vistaril) 25 MG capsule Indications: Anxiety Take 1 capsule (25 mg) by mouth every 8 (eight) hours if needed for itching or anxiety for up to 5 days 10 capsule 11/01/2023 Active ondansetron 8 mg oral tablet (20 sources) Serotonin-3 Receptor Antagonist Start: 08-19-2024 End: 09-25-2024 take 1 tablet by mouth every eight hours for nausea ondansetron (Zofran) 8 MG tablet Indications: Nausea/vomiting in Take 1 tablet (8 mg) by mouth every 8 (eight) hours if needed for nausea or vomiting 20 tablet 1 09/25/2024 Active Start: 06-20-2024 End: 07-20-2024 take 1 tablet by mouth every eight hours for nausea ondansetron (Zofran) 8 MG tablet Indications: Nausea/vomiting in Take 1 tablet (8 mg) by mouth every 8 (eight) hours if needed for nausea 20 tablet 1 06/20/2024 07/20/2024 Active Start: 04-08-2024 End: 06-12-2024 take 1 tablet by mouth every eight hours for nausea ondansetron (Zofran) 8 MG tablet Indications: Nausea/vomiting in Take 1 tablet (8 mg) by mouth every 8 (eight) hours if needed for nausea 20 tablet 1 05/08/2024 06/07/2024 Active sertraline 25 mg oral tablet (20 sources) Serotonin Reuptake Inhibitor Start: 01-28-2024 End: 07-21-2024 take 1 tablet by mouth once daily sertraline (Zoloft) 25 MG tablet Indications: Anxiety TAKE 1 TABLET(25 MG) BY MOUTH DAILY 90 tablet 07/21/2024 Active Completed/Discontinued Medications Medication Drug Class(es) Dates [...] [Anxiety disorder, unspecified] Onset: 01-30-2023 01-30-2023 Chronic Menstrual disorders (2 sources) Amenorrhea; Translations: [Amenorrhea, unspecified] 04-08-2024 Chronic Mood disorders (20 sources) Depressive disorder; Translations: [Depression] Onset: 01-30-2023 01-30-2023 Chronic Other complications of (4 sources) Finding related to ; Translations: [ related conditions, unspecified, second trimester] 07-03-2024 Episodic Other complications of (6 sources) Vomiting of , unspecified; Translations: [Unspecified vomiting of , unspecified as to episode of care or not applicable] 05-08-2024 Episodic Other ear and sense organ disorders (2 sources) Otalgia, right ear; Translations: [Otalgia, unspecified] 06-05-2024 Episodic Other ear and sense organ disorders (2 sources) Otalgia, left ear; Translations: [Otalgia, unspecified] 06-12-2024 Episodic Other and delivery including normal (16 sources) Normal ; Translations: [Encounter for supervision of other normal , second trimester] 06-05-2024 Episodic Other screening for suspected conditions (not mental disorders or infectious disease) (4 sources) Patient encounter status; Translations: [Encounter for screening for diabetes mellitus] 08-28-2024 Episodic Other upper respiratory disease (2 sources) Allergic rhinitis; Translations: [Allergic rhinitis, unspecified] 06-12-2024 Chronic Otitis media and related conditions (2 sources) Acute secretory otitis media; Translations: [Other acute nonsuppurative otitis media, right ear] 05-26-2024 Episodic Past or Other Problems Problem Classification Problem Date Documented Da te Episodic/Chronic Mood disorders (20 sources) Mood disorders Onset: 11-15-2023 11-15-2023 Results Test Name Value Interpretation Reference Range Facil ity US OB GROWTHon 09-22-2024 [place] [address] Ultrasound Report Signed Patient: ELENA CHOPRA MR#: [id number] : 2000 Acct:[id number] Age/Sex: 23 / F ADM Date: 09/22/24 Loc: US Attending Dr: LEX RAYMOND APRN, CNM Ordering Physician: LEX RAYMOND APRN, CNM Date of Service: 09/22/24 Procedure(s): US OB growth Accession Number(s): [id number] cc: LEX RAYMOND APRN, CNM; Physician,Non-Staff M.DNeftali The [place] [address] Patient Name: ELENA CHOPRA MRN: [facility]:[id number] date: 2000 Sex: F Assigned Patient Location: US Current Patient Location: US Accession/Order Number: [id number] Exam Date: 09/22/2024 13:00 Report Date: 09/22/2024 13:32 At the request of: LEX RAYMOND Procedure: US OB growth EXAMINATION: US OB growth HISTORY: Related Condition Third Trimester COMPARISON: No relevant comparison available. FINDINGS: Heart Rate: 150.84 bpm Amniotic Fluid Volume: 11.9 cm, largest fluid pocket 6.9 cm Number: 1 Position: Cephalic presentation, longitudinal lie BIOMETRY: BPD: 7.86 cm; 31 weeks 4 days; 80 % HC: 28.62 cm; 31 weeks 3 days; 52.40 % AC: 26.72 cm; 30 weeks 6 days; 66.10 % FL: 5.37 cm; 28 weeks 3 days; 4.80 % EFW: 1529.55 g; 38.90 %, 3 lbs. 6 oz. FL/AC: 20.11 FL/BPD: 68.36 HC/AC: 1.07 GESTATIONAL AGE: Age by EDC: 30 weeks 1 day TAYLOR by EDC: 2024-11-30 Age by US: 30 weeks 4 days TAYLOR by US: 2024-11-27 US/US OB growth IMPRESSION: Normal interval growth Electronically authenticated by: BRYSON STAUFFER Date: 09/22/2024 13:32 Dictated By: Bryson Stauffer M.D. Signed By: 09/22/241334 DD/ 31 TD/TT: Events Director: [facility] Radiology, Radiologist, - 09/23/2024 [place] [address] Ultrasound Report Signed Patient: ELENA CHOPRA MR#: [id number] : 2000 Acct:[id number] Age/Sex: 23 / F ADM Date: 09/22/24 Loc: US Attending Dr: LEX RAYMOND APRN, CNM Ordering Physician: LEX RAYMOND APRN, CNM Date of Service: 09/22/24 Procedure(s): US OB growth Accession Number(s): [id number] cc: LEX RAYMOND APRN, CNM; Physician,Non-Staff M.D. The [place] [id number] Patient Name: ELENA CHOPRA MRN: [id number] date: 2000 Sex: F Assigned Patient Location: US Current Patient Location: US Accession/Order Number: [id number] Exam Date: 09/22/2024 13:00 Report Date: 09/22/2024 13:32 At the request of: LEX RAYMOND Procedure: US OB growth EXAMINATION: US OB growth HISTORY: Related Condition Third Trimester COMPARISON: No relevant comparison available. FINDINGS: Heart Rate: 150.84 bpm Amniotic Fluid Volume: 11.9 cm, largest fluid pocket 6.9 cm Number: 1 Position: Cephalic presentation, longitudinal lie BIOMETRY: BPD: 7.86 cm; 31 weeks 4 days; 80 % HC: 28.62 cm; 31 weeks 3 days; 52.40 % AC: 26.72 cm; 30 weeks 6 days; 66.10 % FL: 5.37 cm; 28 weeks 3 days; 4.80 % EFW: 1529.55 g; 38.90 %, 3 lbs. 6 oz. FL/AC: 20.11 FL/BPD: 68.36 HC/AC: 1.07 GESTATIONAL AGE: Age by EDC: 30 weeks 1 day TAYLOR by EDC: 2024-11-30 Age by US: 30 weeks 4 days TALYOR by US: 2024-11-27 US/US OB growth IMPRESSION: Normal interval growth Electronically authenticated by: BRYSON STAUFFER Date: 09/22/2024 13:32 Dictated By: Bryson Stauffer M.D. Signed By: 09/22/24 1338 DD/ 31 TD/TT: Events Director: [facility] Radiology Study observation (narrative) [facility] US OB GROWTHOrdered By: Dionisio ologist Radiology on 09-22-2024 [facility] [employer] Work Phone: HCG ( test) Ql (U)o n 04-08-2024 Interpretation and review of laboratory results Abnormal [facility] Preg Test, Ur [facility] Vital Signs Date Time Vital Sign Value Performing Clinician Faci lity 10-09-2024 13:01-0500 Body mass index (BMI) [Ratio] 24.96 kg/m2 Lex Floro CNM Work Phone: [facility] 10-09-2024 13:01-0500 Body weight 68.04 kg Lex Floro CNM Work Phone: [facility] 10-09-2024 13:01-0500 Diastolic blood pressure 62 mm[Hg] Lex Floro CNM Work Phone: [facility] 10-09-2024 13:01-0500 Systolic blood pressure 100 mm[Hg] Lex Floro CNM Work Phone: [facility] 09-25-2024 13:09-0500 Body mass index (BMI) [Ratio] 24.3 kg/m2 Lex Floro CNM Work Phone: [facility] 09-25-2024 13:09-0500 Body weight 66.22 kg Lex Floro CNM Work Phone: [facility] 09-25-2024 13:09-0500 Diastolic blood pressure 70 mm[Hg] Lex Floro CNM Work Phone: [facility] 09-25-2024 13:09-0500 Systolic blood pressure 120 mm[Hg] Lex Floro CNM Work Phone: [facility] 08-28-2024 13:04-0500 Body mass index (BMI) [Ratio] 23.3 kg/m2 Lex Floro CNM Work Phone: [facility] 08-28-2024 13:04-0500 Body weight 63.5 kg Lex Floro CNM Work Phone: [facility] 08-28-2024 13:04-0500 Diastolic blood pressure 60 mm[Hg] Lex Floro CNM Work Phone: [facility] 08-28-2024 13:04-0500 Systolic blood pressure 110 mm[Hg] Lex Floro CNM Work Phone: [facility] 07-31-2024 13:37-0500 Body mass index (BMI) [Ratio] 21.97 kg/m2 Lex Floro CNM Work Phone: [facility] 07-31-2024 13:37-0500 Body weight 59.88 kg Lex Floro CNM Work Phone: [facility] 07-03-2024 11:25-0500 Body mass index (BMI) [Ratio] 20.8 kg/m2 Lex Floro CNM Work Phone: [facility] 07-03-2024 11:25-0500 Body weight 56.7 kg Lex Floro CNM Work Phone: [facility] 07-03-2024 11:25-0500 Diastolic blood pressure 70 mm[Hg] Lex Floro CNM Work Phone: [facility] 07-03-2024 11:25-0500 Systolic blood pressure 110 mm[Hg] Lex Floro CNM Work Phone: [facility] 06-12-2024 14:13-0400 Body mass index (BMI) [Ratio] 19.84 kg/m2 Tricia Li JEWELRY [employer] Work Phone: [facility] 06-12-2024 14:13-0400 Body temperature 97.3 [degF] Tricia Li JEWELRY [employer] Work Phone: [facility] 06-12-2024 14:13-0400 Body weight 54.07 kg Tricia Li JEWELRY [employer] Work Phone: [facility] 06-12-2024 14:13-0400 Diastolic blood pressure 62 mm[Hg] Tricia Li JEWELRY [employer] Work Phone: [facility] 06-12-2024 14:13-0400 Systolic blood pressure 100 mm[Hg] Tricia Li JEWELRY [employer] Work Phone: [facility] 06-05-2024 13:55-0400 Body mass index (BMI) [Ratio] 19.64 kg/m2 Lex Susano CNM Work Phone: [facility] 06-05-2024 13:55-0400 Body weight 53.52 kg Lex Susano CNM Work Phone: [facility] 06-05-2024 13:55-0400 Diastolic blood pressure 60 mm[Hg] Lex Susano CNM Work Phone: [facility] 06-05-2024 13:55-0400 Systolic blood pressure 100 mm[Hg] Lex Susano CNM Work Phone: [facility] 05-26-2024 16:50-0400 Body mass index (BMI) [Ratio] 19.8 kg/m2 Tricia Li JEW[employer]RY [employer] Work Phone: [facility] 05-26-2024 16:50-0400 Body temperature 97.3 [degF] Tricia Li JEWELRY [employer] Work Phone: [facility] 05-26-2024 16:50-0400 Body weight 53.98 kg Tricia Li JEWELRY [employer] Work Phone: [facility] 05-26-2024 16:50-0400 Diastolic blood pressure 60 mm[Hg] Tricia Li JEWELRY [employer] Work Phone: [facility] 05-26-2024 16:50-0400 Systolic blood pressure 92 mm[Hg] Tricia Li JEWELRY [employer] Work Phone: [facility] 05-08-2024 14:56-0400 Body mass index (BMI) [Ratio] 19.47 kg/m2 Lex Susano CNM Work Phone: [facility] 05-08-2024 14:56-0400 Body weight 53.07 kg Lex Floro CNM Work Phone: [facility] 05-08-2024 14:56-0400 Diastolic blood pressure 70 mm[Hg] Lex Floro CNM Work Phone: [facility] 05-08-2024 14:56-0400 Systolic blood pressure 110 mm[Hg] Lex Floro CNM Work Phone: [facility] 04-08-2024 11:01-0400 Body mass index (BMI) [Ratio] 18.3 kg/m2 Lex Floro CNM Work Phone: [facility] 04-08-2024 11:01-0400 Body weight 49.9 kg Lex Susano CNM Work Phone: [facility] 04-08-2024 11:01-0400 Diastolic blood pressure 60 mm[Hg] Lex Floro CNM Work Phone: [facility] 04-08-2024 11:01-0400 Systolic blood pressure 100 mm[Hg] Lex Susano CNM Work Phone: [facility] Encounters Encounter Date Encounter Type Care Provider Facility Start: 10-09-2024 End: 10-09-2024 Bamboo flowsheet Lex Catarino Padrono CNM Work Phone: [facility] Start: 10-09-2024 End: 10-09-2024 Bamboo flowsheet Lex Catarino Padrono CNM Work Phone: [facility] Start: 10-09-2024 End: 10-09-2024 Subsequent care visit Lex Catarino Padrono CNM Work Phone: [facility] Comment on above: Encounter for prenat al care of first , third trimester (Primary Dx) Start: 10-09-2024 End: 10-09-2024 ambulatory LEX L FLORO Not Available Start: 10-01-2024 End: 10-01-2024 Bamboo flowsheet Isela S Charlotte INSTRUMENTAL MUSICIAN-S Work Phone: [facility] Start: 10-01-2024 End: 10-01-2024 Bamboo flowsheet Isela S Sharmaine INSTRUMENTAL MUSICIAN-S Work Phone: [facility] Start: 10-01-2024 End: 10-01-2024 ambulatory ISELA S SHARMAINE Not Available Start: 09-25-2024 End: 09-25-2024 Bamboo flowsheet Lex L Floro CNM Work Phone: [facility] Start: 09-25-2024 End: 09-25-2024 Bamboo flowsheet Lex L Floro CNM Work Phone: [facility] Start: 09-25-2024 End: 09-25-2024 ambulatory LEX L FLORO Not Available Start: 09-25-2024 End: 09-25-2024 Subsequent care visit Lex Padrono CNM Work Phone: [facility] Comment on above: Encounter for prenat al care of first , third trimester (Primary Dx); Nausea/vomiting in Start: 09-22-2024 End: 09-23-2024 [facility] Result Encounter Lex Catarino Padrono CNM Work Phone: [facility] Unsolicited Start: 09-22-2024 End: 09-23-2024 [facility] Result Encounter Lex L Floro CNM Work Phone: [facility] Unsolicited Start: 08-28-2024 End: 08-28-2024 Bamboo flowsheet Lex L Floro CNM Work Phone: [facility] Start: 08-28-2024 End: 08-28-2024 Bamboo flowsheet Lex L Floro CNM Work Phone: [facility] Start: 08-28-2024 End: 08-28-2024 ambulatory LEX L FLORO Not Available Start: 08-28-2024 End: 08-28-2024 Subsequent care visit Lex L Floro CNM Work Phone: [facility] Comment on above: Encounter for prenat al care of first , second trimester (Primary Dx); Screening for diabetes mellitus; Screening for iron deficiency anemia; related condition in third trimester Start: 08-27-2024 End: 08-27-2024 Bamboo flowsheet Isela S Sharmaine INSTRUMENTAL MUSICIAN-S Work Phone: [facility] Start: 08-27-2024 End: 08-27-2024 Bamboo flowsheet Isela S Charlotte INSTRUMENTAL MUSICIAN-S Work Phone: [facility] Start: 08-27-2024 End: 08-27-2024 ambulatory ISELA S SHARMAINE Not Available Start: 07-31-2024 End: 07-31-2024 Bamboo flowsheet Lex L Floro CNM Work Phone: [facility] Start: 07-31-2024 End: 07-31-2024 Bamboo flowsheet Lex L Floro CNM Work Phone: [facility] Start: 07-31-2024 End: 07-31-2024 ambulatory LEX L FLORO Not Available Start: 07-31-2024 End: 07-31-2024 Subsequent care visit Lex L Floro CNM Work Phone: [facility] Comment on above: Encounter for prenat al care of first , second trimester (Primary Dx); Nausea/vomiting in Start: 07-20-2024 End: 07-21-2024 Refill Tricia Li NP Work Phone: [facility] Comment on above: Anxiety Start: 07-14-2024 End: 07-14-2024 Bamboo flowsheet Isela Schmid INSTRUMENTAL MUSICIAN-S Work Phone: [facility] Start: 07-14-2024 End: 07-14-2024 Bamboo flowsheet Isela Schmid INSTRUMENTAL MUSICIAN-S Work Phone: [facility] Start: 07-14-2024 End: 07-14-2024 ambulatory ISELA SCHMID Not Available Start: 07-03-2024 End: 07-03-2024 Bamboo flowsheet Lex Padrono CNM Work Phone: [facility] Start: 07-03-2024 End: 07-03-2024 Bamboo flowsheet Lex Padrono CNM Work Phone: [facility] Start: 07-03-2024 End: 07-03-2024 Subsequent care visit Lex Raymond CN Work Phone: [facility] Comment on above: Encounter for prenat al care of first , second trimester (Primary Dx); related condition in second trimester Start: 07-03-2024 End: 07-03-2024 ambulatory LEX Catarino FLORO Not Available Start: 06-12-2024 End: 06-12-2024 Bamboo flowsheet Tricia Li JEWELRY [employer] Work Phone: [facility] Start: 06-12-2024 End: 06-12-2024 Bamboo flowsheet Tricia Li JEW[employer]RY [employer] Work Phone: [facility] Start: 06-12-2024 End: 06-12-2024 Office outpatient visit 15 minutes Tricia Li JEW[employer]RY [employer] Work Phone: [facility] Comment on above: Left ear pain (Prima ry Dx); Allergic rhinitis, unspecified seasonality, unspecified trigger Start: 06-12-2024 End: 06-12-2024 ambulatory TRICIA LI Not Available Start: 06-11-2024 End: 06-11-2024 Telephone encounter Lex Raymond CNM Work Phone: [facility] Start: 06-09-2024 End: 06-09-2024 Bamboo flowsheet Isela Botelloughlin INSTRUMENTAL MUSICIAN-S Work Phone: [facility] Start: 06-09-2024 End: 06-09-2024 Bamboo flowsheet Isela S Sharmaine INSTRUMENTAL MUSICIAN-S Work Phone: [facility] Start: 06-09-2024 End: 06-09-2024 ambulatory ISELA Torrie SHARMAINE Not Available Start: 06-05-2024 End: 06-05-2024 Bamboo flowsheet Lex Raymond CNM Work Phone: [facility] Start: 06-05-2024 End: 06-05-2024 Bamboo flowsheet Lex Raymond CNM Work Phone: [facility] Start: 06-05-2024 End: 06-05-2024 Subsequent care visit Lex Raymond CNM Work Phone: [facility] Comment on above: Earache on right (Pr imary Dx); Encounter for supervision of other normal , second trimester Start: 06-05-2024 End: 06-05-2024 ambulatory LEX RAYMOND Not Available Start: 05-26-2024 End: 05-26-2024 Office outpatient visit 15 minutes Tricia Li [employer]EW[employer] Work Phone: [facility] Comment on above: Other non-recurrent acute nonsuppurative otitis media of right ear (Primary Dx) Start: 05-26-2024 End: 05-26-2024 ambulatory TRICIA LI Not Available Start: 05-26-2024 End: 05-26-2024 Bamboo flowsheet Tricia Li JEWELRY [employer]ING [employer] Work Phone: [facility] Start: 05-26-2024 End: 05-26-2024 Bamboo flowsheet Tricia Li JEWELRY [employer]ING [employer]KER Work Phone: [facility] Start: 05-12-2024 End: 05-12-2024 Bamboo flowsheet Isela S Sharmaine INSTRUMENTAL MUSICIAN-S Work Phone: [facility] Start: 05-12-2024 End: 05-12-2024 Bamboo flowsheet Isela S Sharmaine INSTRUMENTAL MUSICIAN-S Work Phone: [facility] Start: 05-12-2024 End: 05-12-2024 ambulatory ISELA S SHARMAINE Not Available Start: 05-08-2024 End: 05-08-2024 Subsequent care visit Lex Raymond CNM Work Phone: [facility] Comment on above: Encounter for prenat al care of first , first trimester (Primary Dx); Nausea/vomiting in ; examination or test, positive result Start: 05-08-2024 End: 05-08-2024 ambulatory LEX Catarino PADRONO Not Available Start: 05-08-2024 End: 05-08-2024 Bamboo flowsheet Lex Padrono CNM Work Phone: [facility] Start: 05-08-2024 End: 05-08-2024 Bamboo flowsheet Lex Catarino Padrono CNM Work Phone: [facility] Start: 04-24-2024 End: 04-24-2024 Refill Tricia Li [employer]EW[employer] Work Phone: [facility] Comment on above: Anxiety Start: 04-16-2024 End: 04-16-2024 Bamboo flowsheet Isela S Sharmaine INSTRUMENTAL MUSICIAN-S Work Phone: [facility] Start: 04-16-2024 End: 04-16-2024 Bamboo flowsheet Isela S Sharmaine INSTRUMENTAL MUSICIAN-S Work Phone: [facility] Start: 04-16-2024 End: 04-16-2024 Telephone encounter Lex L Floro CNM Work Phone: [facility] Start: 04-16-2024 End: 04-16-2024 ambulatory ISELA S SHARMAINE Not Available Start: 04-08-2024 End: 04-08-2024 Bamboo flowsheet Lex L Floro CNM Work Phone: [facility] Start: 04-08-2024 End: 04-08-2024 Bamboo flowsheet Lex L Floro CNM Work Phone: [facility] Start: 04-08-2024 End: 04-08-2024 Office outpatient visit 15 minutes Lex L Floro CNM Work Phone: [facility] Comment on above: GA: 7w6d Start: 04-08-2024 End: 04-08-2024 ambulatory LEX L FLORO Not Available Start: 04-07-2024 End: 04-07-2024 Telephone encounter Lex L Floro CNM Work Phone: [facility] Start: 03-24-2024 End: 03-24-2024 ambulatory ISELA S SHARMAINE Not Available Start: 03-03-2024 End: 03-03-2024 ambulatory ISELA S SHARMAINE Not Available Start: 02-28-2024 End: 02-28-2024 ambulatory TRICIA A LI Not Available Start: 01-21-2024 End: 01-21-2024 ambulatory ISELA S SHARMAINE Not Available Start: 12-24-2023 End: 12-24-2023 ambulatory ISELA S SHARMAINE Not Available Start: 12-03-2023 End: 12-03-2023 ambulatory ISELA S SHARMAINE Not Available Start: 11-15-2023 End: 11-15-2023 ambulatory TRICIA A LI Not Available Start: 11-01-2023 End: 11-01-2023 ambulatory TRICIA A LI Not Available Start: 10-29-2023 End: 10-29-2023 ambulatory ISELA S SHARMAINE Not Available Start: 10-15-2023 End: 10-15-2023 ambulatory TRICIA LI Not Available Procedures Date Procedure Procedure Detail Performing Clinician Start: 10-01-2024 End: 10-01-2024 Psychotherapy w/patient 60 minutes Anxiety Isela S Charlotte INSTRUMENTAL MUSICIAN-S Work Phone: Comment on above: Anxiety; Depression, unspecified depression type (CMS/HCC) Start: 09-22-2024 OB GROWTH Lex Raymond CN Work Phone: Start: 08-27-2024 End: 08-27-2024 Psychotherapy w/patient 60 minutes Anxiety Isela S Sharmaine INSTRUMENTAL MUSICIAN[employer]S Work Phone: Comment on above: Anxiety; Depression, unspecified depression type (CMS/HCC) Start: 07-14-2024 End: 07-14-2024 Psychotherapy w/patient 60 minutes Anxiety Isela S Sharmaine INSTRUMENTAL MUSICIAN[employer]S Work Phone: Comment on above: Anxiety; Depression, unspecified depression type (CMS/HCC) Start: 06-09-2024 End: 06-09-2024 Psychotherapy w/patient 60 minutes Anxiety Isela S Sharmaine INSTRUMENTAL MUSICIAN[employer]S Work Phone: Comment on above: Anxiety; Depression, unspecified depression type (CMS/HCC) Start: 05-12-2024 End: 05-12-2024 Psychotherapy w/patient 60 minutes Anxiety Isela S Charlotte INSTRUMENTAL MUSICIAN-S Work Phone: Comment on above: Anxiety; Depression, unspecified depression type (CMS/HCC) Start: 04-16-2024 End: 04-16-2024 Psychotherapy w/patient 60 minutes Anxiety Isela S Sharmaine INSTRUMENTAL MUSICIAN-S Work Phone: Comment on above: Anxiety; Depression, unspecified depression type (CMS/HCC) Start: 04-08-2024 Urine test visual color cmprsn meths Lex Raymond CN Work Phone: Plan of Treatment Date Care Activity Detail Author Start: 10-29-2024 End: 10-29-2024 Patient encounter procedure 10/29/2024 4:30 PM EDT Routine [facility] [address] [facility] [address] Lex Raymond, CNM [address] [facility] [place] [address] [facility] Start: 10-28-2024 End: 10-28-2024 Social Work 10/28/2024 2:00 PM EDT Social Work [facility] [address] [place] [address] Isela Schmid S, INSTRUMENTAL MUSICIAN-S [address] [facility] [place] [address] [facility] Start: 10-09-2024 End: 10-09-2024 Patient encounter procedure [facility] Comment on above: Arrived Start: 10-01-2024 End: 10-01-2024 Social Work [facility] Comment on above: Arrived Start: 09-25-2024 End: 09-25-2024 Patient encounter procedure 09/25/2024 1:00 PM EST Routine [facility] [address] [facility] [address] Lex Raymond, CN [address] [facility] [place] [address] [facility] Start: 08-28-2024 End: 08-28-2025 CBC panel - Blood by Automated count CBC Lab Routine Screening for iron deficiency anemia Expected: 08/28/2024 (Approximate), Expires: 08/28/2025 [facility] Comment on above: Expected: 08/28/2024 (Approximate), Expires: 08/28/2025 Start: 08-28-2024 End: 08-28-2025 GLUCOSE, GESTATIONAL SCREEN (50G)-135 CUTOFF GLUCOSE, GESTATIONAL SCREEN (50G)-135 CUTOFF Lab Routine Screening for diabetes mellitus Expected: 08/28/2024 (Approximate), Expires: 08/28/2025 [facility] Work Phone: Comment on above: Expected: 08/28/2024 (Approximate), Expires: 08/28/2025 Start: 08-28-2024 End: 08-28-2025 US for US OB SCAN FOR GROWTH Imaging Routine related condition in third trimester Expected: 08/28/2024, Expires: 08/28/2025 [facility] Comment on above: Expected: 08/28/2024 , Expires: 08/28/2025 Start: 08-28-2024 End: 08-28-2024 Patient encounter procedure 08/28/2024 1:00 PM EST Routine [facility] [address] [facility] [id number] Lex Raymond, [facility] [address] [facility] [place] [address] [facility] Start: 08-27-2024 End: 08-27-2024 Social Work [facility] Comment on above: Arrived Start: 07-31-2024 End: 07-31-2024 Patient encounter procedure 07/31/2024 1:30 PM EST Routine [facility] [address] [facility] [id number] Lex Raymond, [facility] [address] [facility] [place] [address] [facility] Start: 07-14-2024 End: 07-14-2024 [...] EDT Office Visit [facility] [address] [facility] [place] [address] [phone] Tricia Li, [employer] [address] [facility] [place] [address] Arrived [facility] Comment on above: Arrived Start: 06-09-2024 End: 06-09-2024 Social Work 06/09/2024 9:00 AM EDT Social Work [facility] [address] [facility] [place] [address] Isela Schmid, INSTRUMENTAL MUSICIAN-S [address] [place] [facility] [address] [facility] Start: 06-05-2024 End: 06-05-2024 Patient encounter procedure [facility] Comment on above: Arrived Start: 05-26-2024 End: 05-26-2024 Patient encounter procedure 05/26/2024 5:00 PM EDT Office Visit [facility] [address] [place] [address] [phone] Tricia Li, [employer] [address] [place] [facility] [place] [address] Arrived [facility] Comment on above: Arrived Start: 05-12-2024 End: 05-12-2024 Social Work [facility] Comment on above: Arrived Start: 05-08-2024 End: 05-08-2024 Patient encounter procedure [facility] Comment on above: Arrived Start: 05-08-2024 End: 05-08-2025 Bacteria identified in Urine by Culture Urine culture Microbiology Routine examination or test, positive result Expected: 05/08/2024 (Approximate), Expires: 05/08/2025 [facility] Comment on above: Expected: 05/08/2024 (Approximate), Expires: 05/08/2025 Start: 05-08-2024 End: 05-08-2025 DRUG TOX MONITORIGN 6 W/ CONF,URINE DRUG TOX MONITORIGN 6 W/ CONF,URINE Lab Routine examination or test, positive result Expected: 05/08/2024 (Approximate), Expires: 05/08/2025 [facility] Comment on above: Expected: 05/08/2024 (Approximate), Expires: 05/08/2025 Start: 05-08-2024 End: 05-08-2025 Neisseria gonorrhoeae DNA [Presence] in Cervical mucus by MARGO with probe detection C. trachomatis / N. gonorrhoeae, DNA probe Pathology and Cytology Routine examination or test, positive result Expected: 05/08/2024 (Approximate), Expires: 05/08/2025 [facility] Comment on above: Expected: 05/08/2024 (Approximate), Expires: 05/08/2025 Start: 05-08-2024 End: 05-08-2025 TSH W/REFLEX TO FT4 TSH W/REFLEX TO FT4 Lab Routine examination or test, positive result Expected: 05/08/2024 (Approximate), Expires: 05/08/2025 [facility] Comment on above: Expected: 05/08/2024 (Approximate), Expires: 05/08/2025 Start: 05-08-2024 End: 05-08-2025 URINALYSIS MICROSCOPIC URINALYSIS MICROSCOPIC Lab Routine examination or test, positive result Expected: 05/08/2024 (Approximate), Expires: 05/08/2025 [facility] Comment on above: Expected: 05/08/2024 (Approximate), Expires: 05/08/2025 Start: 04-16-2024 End: 04-16-2024 Social Work [facility] Comment on above: Arrived Start: 04-13-2024 Influenza vaccination Influenza Vacc ine (#1) [facility] Start: 04-09-2024 End: 04-09-2024 ambulatory 04/09/2024 11:30 AM EDT Initial [facility] [address] [place] [address] Lex Raymond, CNM [address] [place] [address] [facility] Start: 04-09-2024 End: 04-09-2024 Professional / ancillary services management 04/09/2024 11:30 AM EDT Ancillary Procedure [facility] [address] [phone] [facility] Start: 04-08-2024 End: 04-08-2024 ambulatory 04/08/2024 11:30 AM EDT Initial [facility] [address] [place] [address] Lex Raymond, CNM [address] [place] [address] Arrived [facility] Comment on above: Arrived ABO/Rh ABO/Rh Lab Routi ne examination or test, positive result Ordered: 05/08/[address] [facility] Comment on above: Ordered: 05/08/2024 Antibody screen Antibody screen Lab Routine examination or test, positive result Ordered: 05/08/20[address] [facility] Comment on above: Ordered: 05/08/2024 CBC panel - Blood by Automated count CBC Lab Routine examination or test, positive result Ordered: 05/08/2024 [facility] Comment on above: Ordered: 05/08/2024 Hemoglobin A1c/Hemoglobin.total in Blood Hemoglobin A1c Lab Routine examination or test, positive result Ordered: 05/08/2024 [facility] Comment on above: Ordered: 05/08/2024 Hepatitis B virus surface Ag [Presence] in Serum or Plasma by Immunoassay Hepatitis B surface antigen Lab Routine examination or test, positive result Ordered: 05/08/2024 [facility] Work Phone: Comment on above: Ordered: 05/08/2024 Hepatitis C virus Ab [Presence] in Serum or Plasma by Immunoassay Hepatitis C antibody Lab Routine examination or test, positive result Ordered: 05/08/2024 [facility] Comment on above: Ordered: 05/08/2024 HIV-1/HIV-2 antigen/antibody combination immunoassay HIV-1 and HIV-2 antibodies Lab Routine examination or test, positive result Ordered: 05/08/2024 [facility] Comment on above: Ordered: 05/08/2024 Reagin Ab [Presence] in Serum by RPR RPR Lab Routine examination or test, positive result Ordered: 05/08/2024 [facility] Comment on above: Ordered: 05/08/2024 Rubella antibody, IgG Rubella an tibody, IgG Lab Routine examination or test, positive result Ordered: 05/08/2024 [facility] Comment on above: Ordered: 05/08/2024 Immunizations Immunization Date Immunization Notes Care Provider Dina [email or web address] 11-01-2004 diphtheria, tetanus toxoids and acellular pertussis vaccine Lex Floro CN Work Phone: [facility] 11-01-2004 measles, mumps and rubella virus vaccine Lex Floro CN Work Phone: [facility] 11-01-2004 poliovirus vaccine, inactivated Lex Floro CN Work Phone: [facility] 02-25-2001 diphtheria, tetanus toxoids and acellular pertussis vaccine, unspecified formulation Lex Floro CN Work Phone: [facility] 02-25-2001 haemophilus influenz ae type b vaccine, conjugate unspecified formulation Lex Floro [facility] Work Phone: [facility] 12-24-2000 measles, mumps and rubella virus vaccine Lex Floro CN Work Phone: [facility] 07-13-2000 diphtheria, tetanus toxoids and acellular pertussis vaccine, unspecified formulation Lex Floro CN Work Phone: [facility] 07-13-2000 haemophilus influenz ae type b conjugate and Hepatitis B vaccine Lex Floro CN Work Phone: [facility] 07-13-2000 poliovirus vaccine, inactivated Lex Floro CN Work Phone: [facility] 05-11-2000 diphtheria, tetanus toxoids and acellular pertussis vaccine, unspecified formulation Lex Floro CN Work Phone: [facility] 05-11-2000 haemophilus influenz ae type b vaccine, conjugate unspecified formulation Lex Floro [facility] Work Phone: [facility] 05-11-2000 poliovirus vaccine, inactivated Lex Susano CN Work Phone: [facility] 03-09-2000 diphtheria, tetanus toxoids and acellular pertussis vaccine, unspecified formulation Lex Floro CN Work Phone: [facility] 03-09-2000 haemophilus influenz ae type b conjugate and Hepatitis B vaccine Lex Floro CN Work Phone: [facility] 03-09-2000 poliovirus vaccine, inactivated Lex Floro CN Work Phone: [facility] 1999 hepatitis B vaccine, pediatric or pediatric/adolescent dosage Lex Floro CN Work Phone: [facility] Payers Date Payer Category Payer Private Health Insurance [facility] [id number] 2022 Unknown [employer] [id number] 2022-Present [phone] [address] [address] [place] [address] [id number] 2022 Unknown [id number] 1969 Unknown [id number] 2.16.840.1.218330.3.579 .2.1258 1969 Unknown [id number] 2.16.840.1.602239.3.579 .2.1258 1969 Unknown [id number] 2.16.840.1.607304.3.579 .2.1258 1969 Unknown [id number] 2.16.840.1.309188.3.579 .2.1258 1969 Unknown [id number] 2..840.1.681276.3.579 .2.1258 1969 Unknown [id number] 2..840.1.422116.3.579 .2.1258 1969 Unknown [id number] 2.840.1.953813.3.579 .2.1258 1969 Unknown [id number] 2.840.1.880453.3.579 .2.1258 1969 Unknown [id number] 2.840.1.051626.3.579 .2.1258 1969 Unknown [id number] 2.840.1.770022.3.579 .2.1258 1969 Unknown [id number] 2.840.1.237455.3.579 .2.1258 1969 Unknown [id number] 2.840.1.677599.3.579 .2.1258 1969 Unknown [id number] 2.840.1.854291.3.579 .2.1258 1969 Unknown [id number] 2..840.1.370261.3.579 .2.1258 1969 Unknown [id number] 2.16840.1.944669.3.579 .2.1258 1969 Unknown [id number] 2.16.840.1.337610.3.579 .2.1258 1969 Unknown [id number] 2.16.840.1.080383.3.579 .2.9 1969 Unknown [id number] 2.16.840.1.195781.3.579 .2.1258 1969 Unknown [id number] 2.16.840.1.401433.3.579 .2.1258 1969 Unknown [id number] 2.16.840.1.752367.3.579 .2.1258 1969 Unknown [id number] 2.16.840.1.622055.3.579 .2.1258 1969 Unknown [id number] 2.16.840.1.012050.3.579 .2.1258 1969 Unknown [id number] 2.16.840.1.960576.3.579 .2.1258 1969 Unknown [id number] 2.16.840.1.665821.3.579 .2.1258 1969 Unknown [id number] 2.16.840.1.778063.3.579 .2.1258 1969 Unknown [id number] 2.16.840.1.502056.3.579 .2.9 Social History Date Type Detail Facility Start: 07-17-2023 Tobacco smoking stat [facility] Never smoked tobacco [facility] Start: 07-17-2023 Tobacco use and exposure Smokeless t obacco non-user [facility] Start: 04-08-2024 End: 06-12-2024 Alcoholic beverage intake Lifetime non-drinker (finding) [facility] Start: 11-15-2023 End: 04-08-2024 History of Social function [facility] Start: 11-15-2023 End: 04-08-2024 Tobacco use panel [facility] Start: 02-01-2023 Education 21 [facility] Start: 02-01-2023 Alcohol Comment caffeine: 1-2 cups per day coffee, soda/pop [facility] Start: 02-27-2024 [facility] Start: 2000 Sex assigned at Not on file [facility] Start: 10-25-2022 Gender identity Identifies as female gender (finding) [facility] Clinical Notes 04-07-2024 to 10-09-2024 Lex Raymond CNM - 10/09/2024 1:00 PM Amy Raymond CNM - 09/25/2024 1:00 PM Amy Raymond, NAKUL - 08/28/2024 1:00 PM Amy Raymond, NAKUL - 07/31/2024 1:30 PM EST Note Date & Type Note Facility 10-09-2024 History of Presen t illness Narrative Subjective No chief complaint on file. Elena Chopra is a 23 y.o. at 32w4d with a working estimated date of delivery [...] 2 1 SAB Her is complicated by: failed hyperemesis in early , 1 hr gtt, passed 3 hr, anemia, placed on iron and colace Objective Physical Exam weight: 150 lb Expected Total Weight Gain: 27 lb-39 lb Pregravid BMI: 18.31 BP: 100/62 Urine protein-negative Urine glucose-negative Assessment/Plan Continue vitamin. Labs reviewed. GBS taken. Expected mode of delivery Follow up in 1 week for a routine visit. documented in this encounter [facility] 09-25-2024 History of Presen t illness Narrative Subjective No chief complaint on file. Elena Chopra is a 23 y.o. at 30w4d with a working estimated date of delivery [...] 2 1 SAB Her is complicated by: Objective Physical Exam weight: 146 lb Expected Total Weight Gain: 27 lb-39 lb Pregravid BMI: 18.31 BP: 120/70 Urine protein-negative Urine glucose-negative Assessment/Plan Diagnoses and all orders for this visit: Encounter for care of first , third trimester Nausea/vomiting in - ondansetron (Zofran) 8 MG tablet; Take 1 tablet (8 mg) by mouth every 8 (eight) hours if needed for nausea or vomiting Continue vitamin. Labs reviewed. Expected mode of delivery Follow up in 1 week for a routine visit. Patient continues to have intermittent n/v and does better when takes 1 zofran per day. Refill sent to pharmacy. documented in this encounter [facility] 08-28-2024 History of Presen t illness Narrative Subjective No chief complaint on file. Elena Chopra is a 23 y.o. at 26w4d with a working estimated date of delivery [...] 2 1 SAB Her is complicated by: The following portions of the chart were reviewed this encounter and updated as appropriate: Objective Physical Exam weight: 140 lb Expected Total Weight Gain: 27 lb-39 lb Pregravid BMI: 18.31 BP: 110/60 Urine protein-negative Urine glucose-negative Labs: reviewed Imaging Assessment/Plan Continue vitamin. Labs reviewed. Rhogam GTT . Follow up in 2 weeks for a routine visit. documented in this encounter [facility] 07-31-2024 History of Presen t illness Narrative Subjective No chief complaint on file. Elena Chopra is a 23 y.o. at 22w4d with a working estimated date of delivery [...] 2 1 SAB Her is complicated by: nausea and vomiting in The following portions of the chart were reviewed this encounter and updated as appropriate: Objective Physical Exam weight: 132 lb Expected Total Weight Gain: 27 lb-39 lb Pregravid BMI: 18.31 Heart Rate: 146 Fundal Height (cm): 22 cm Urine protein-negative Urine glucose-negative Labs: reviewed Imaging Assessment/Plan Diagnoses and all orders for this visit: Encounter for care of first , second trimester Nausea/vomiting in Continue vitamin. Labs reviewed. Rhogam not needed patient is B+ positive GTT at 28 weeks Follow up in 2 weeks for a routine visit. documented in this encounter [facility] 07-03-2024 History of Presen t illness Narrative [...] a routine visit. documented in this encounter [facility] 06-12-2024 History of Presen t illness Narrative [...] room every night. documented in this encounter [facility] 06-11-2024 Telephone encount er Note Was in - ear inf- still having pain and today is last day of antibiotic. Maurice Parker- [phone] [facility] 06-11-2024 Miscellaneous Notes Formattin g of this note might be different from the original. Was in - ear inf- still having pain and today is last day of antibiotic. Maurice Parker- [phone] documented in this encounter [facility] 06-05-2024 History of Presen t illness Narrative [...] by: right ear pain. She saw Tricia Li last Sunday and was prescribed amoxicillin for [...] a routine visit. documented in this encounter [facility] 05-26-2024 History of Presen t illness Narrative [...] for 7 days. documented in this encounter [facility] 05-08-2024 History of Presen t illness Narrative Subjective No chief complaint on file. Elena Chopra is a 23 y.o. at 12w1d with a working estimated date of delivery of 11/19/2024, by Last Menstrual Period who presents for a routine visit. She denies vaginal bleeding, leakage of fluid, decreased movements, and contractions. OB History Para Term AB Living 3 1 SAB IAB Ectopic Multiple Live Births 1 # Outcome Date GA Lbr Paxton/2nd Weight Sex Type Anes PTL Lv 3 Current 2 1 SAB Her is complicated by: nausea and vomiting with The following portions of the chart were reviewed this encounter and updated as appropriate: Objective Physical Exam weight: 117 lb, Pregravid BMI: 18.31 Expected Total Weight Gain: 27 lb-39 lb BP: 110/70 Labs Imaging Assessment/Plan Diagnoses and all orders for this visit: Encounter for care of first , first trimester Nausea/vomiting in - ondansetron (Zofran) 8 MG tablet; Take 1 tablet (8 mg) by mouth every 8 (eight) hours if needed for nausea examination or test, positive result - Hepatitis B surface antigen - Rubella antibody, IgG - CBC - Antibody screen - RPR - Hemoglobin A1c - TSH W/REFLEX TO FT4; Future - HIV-1 and HIV-2 antibodies - ABO/Rh - DRUG TOX MONITORIGN 6 W/ CONF,URINE; Future - Hepatitis C antibody - Urine culture; Future - URINALYSIS MICROSCOPIC; Future - C. trachomatis / N. gonorrhoeae, DNA probe; Future Urine protein-negative Urine glucose-negative Continue vitamin. Labs reviewed. Order placed for anatomy scan at 20 weeks. Follow up in 4 weeks for a routine visit. documented in this encounter [facility] 04-16-2024 Telephone encount er Note Pt was sent to [facility] at her last appt due to dehydration and another appt was not scheduled, so she would like to schedule Currently she is at 7 weeks. [phone] [facility] 04-16-2024 Miscellaneous Notes Formattin g of this note might be different from the original. Pt was sent to [facility] at her last appt due to dehydration and another appt was not scheduled, so she would like to schedule Currently she is at 7 weeks. [phone] documented in this encounter [facility] 04-08-2024 History of Presen t illness Narrative Subjective Elena Chopra is a 23 y.o. at 7w6d with a working estimated date of delivery of 11/19/2024, by Last Menstrual Period who presents for an initial visit. This is planned. Patient Care Team: Leah Cramer MD as PCP - General (Family Medicine) OB History Para Term AB Living 3 1 SAB IAB Ectopic Multiple Live Births 1 # Outcome Date GA Lbr Paxton/2nd Weight Sex Type Anes PTL Lv 3 Current 2 1 SAB Her is complicated by: Patient referred by Gynecology History Last Pap never The following portions of the chart were reviewed this encounter and updated as appropriate: @RULESMARTLINK([id number],TOBYESPROV)@@ RULESMARTLINK([id number],ALGYESPROV)@@R ULESM ARTLINK([id number],MEDYESPROV)@@RULESMA RTLINK([id number],PROBYESPROV)@@RULESMA RTLIN K([id number],MHYESPROV)@@RULESMARTLINK( [id number],SHYESPROV)@@RULESMARTLINK([id number], FHYESPROV)@@RULESMARTLINK([id number],SO HYESPROV)@ Review of Systems Objective Physical Exam weight: 110 lb Expected Total Weight Gain: 27 lb-39 lb Pregravid BMI: 18.31 BP: 100/60 Urine protein-negative Urine glucose-negative Labs Assessment/Plan Blue education folder given. Patient educated on safe medication list. Genetic testing information given. Discussed the do's and don'ts in the blue folder. We discussed labs and what we draw and what we are testing for. Patient is also informed that we do a urine drug test. Patient also given office phone number and [facility] number to call in case of an emergency or after hours needs. PVU and all questions answered. We did discuss place of delivery. Patient should plan to go to [facility] for all services unless an emergency and they need to go to the closest ER. We can make other arrangements possibly if patient would like to deliver at another facility but I did explain I am now at [facility] 100% of the time and would like to do all deliveries there. documented in this encounter [facility] 04-07-2024 Telephone encount er Note Please call Elena about medication you have discussed - ty [phone] [facility] 04-07-2024 Miscellaneous Notes Formattin g of this note might be different from the original. Please call Elena about medication you have discussed - ty [phone] documented in this encounter [facility] Evaluation note Diagnosis Other non-recurrent acute nonsuppurative otitis media of right ear- Primary [facility] this [facility] Diagnosis Earache on right- Primary Encounter for supervision of other normal , second trimester documented [facility] Diagnosis Anxiety Anxiety state, unspecified Depression, unspecified depression type (CMS/HCC) documented [facility] [...] type (CMS/HCC) documented [facility] Diagnosis Anxiety Anxiety state, unspecified [facility] Diagnosis Anxiety Anxiety state, unspecified [facility]* Diagnosis Amenorrhea Absence of menstruation documented [facility]* Diagnosis Encounter for care of first , first trimester- Primary Nausea/vomiting in Unspecified vomiting of , unspecified as to episode of care examination or test, positive result [facility] Diagnosis Encounter for care of first , second trimester- Primary Nausea/vomiting in Unspecified vomiting of , unspecified as to episode of care [facility] Diagnosis Encounter for care of first , second trimester- Primary Screening for diabetes mellitus Screening for iron deficiency anemia related condition in third trimester [facility] Diagnosis Encounter for care of first , third trimester- Primary Nausea/vomiting in Unspecified vomiting of , unspecified as to episode of care [facility] Diagnosis Anxiety Anxiety state, unspecified Depression, unspecified depression type (CMS/HCC) [facility] Diagnosis Encounter for care of first , third trimester- Primary documented in this encounter [facility] Summary Purpose Family History No Family History Records Found Advance Directives No Advanced Directives Records Found Additional Source Comments Care Teams (unrecognized sec tion and content) Sales And Marketing Administrator Relationship Specialty Start Date End Date Leah Cramer MD [address] [place] [address] PCP - General Family Medicine 12/19/22 Sales And Marketing Administrator Relationship Specialty Start Date End Date Leah Cramer MD [address] [place] [address] PCP - General Family Medicine 12/19/22 Sales And Marketing Administrator Relationship Specialty Start Date End Date Leah Cramer MD [address] [place] [address] PCP - General Family Medicine 12/19/22 Sales And Marketing Administrator Relationship Specialty Start Date End Date Leah Cramer MD [address] [facility] [place] [address] PCP - General Family Medicine 12/19/22 Sales And Marketing Administrator Relationship Specialty Start Date End Date Leah Cramer MD [address] [place] [address] PCP - General Family Medicine 12/19/22 Sales And Marketing Administrator Relationship Specialty Start Date End Date Leah Cramer MD [address] [place] [address] PCP - General Family Medicine 12/19/22 Sales And Marketing Administrator Relationship Specialty Start Date End Date Leah Cramer MD [address] [place] [address] PCP - General Family Medicine 12/19/22 Sales And Marketing Administrator Relationship Specialty Start Date End Date Leah Cramer MD [address] [place] [address] PCP - General Family Medicine 12/19/22 Sales And Marketing Administrator Relationship Specialty Start Date End Date Leah Cramer MD [address] [place] [address] PCP - General Family Medicine 12/19/22 Sales And Marketing Administrator Relationship Specialty Start Date End Date Leah Cramer MD [address] [place] [address] PCP - General Family Medicine 12/19/22 Sales And Marketing Administrator Relationship Specialty Start Date End Date Leah Cramer MD [address] [place] [address] PCP - General Family Medicine 12/19/22 Sales And Marketing Administrator Relationship Specialty Start Date End Date Leah Cramer MD [address] [place] [address] PCP - General Family Medicine 12/19/22 Reason for Visit (unrecogniz ed section and content) Reason Comments URI Reason Comments counseling session Reason Comments Follow-up Reason Comments Med Refill INFORMATION SOURCE (unrecogn ized section and content) DATE CREATED AUTHOR 10/13/2024 [facility] d[facility] Special[facility] FOR RECORDS PERTAINING TO PATIENTS WHO ARE [...] BE BASED ON THE PRIMARY CLINICAL RECORDS. [email or web address] provides no warranty or guarantee of the accuracy or completeness of information in this document.
[2024-10-23 16:02] LABS: Bilirubin Urine NEGATIVE (NEGATIVE); Blood Urine LARGE (NEGATIVE); Clarity Urine CLEAR (CLEAR); Color Urine LT. YELLOW (YELLOW); Glucose Urine UA NEGATIVE (NEGATIVE); Ketones Urine NEGATIVE (NEGATIVE); Leukocyte Esterase Urine SMALL (NEGATIVE); Nitrite Urine NEGATIVE (NEGATIVE); Protein Urine 30 mg/dL (NEG/TRACE); Urine Microscopic Indicated YES; Urobilinogen Urine 0.2 EU/dL (0.2-1.0); pH Urine 6.5 (5.0-9.0)
[2024-10-23 16:08] LABS: Bacteria Urine SMALL #/HPF (NONE SEEN); Cast Seen? NONE SEEN #/LPF (NONE SEEN); Crystals Seen? None Seen #/HPF (None Seen); Mucus Urine TRACE (NONE SEEN); RBC Urine 20-50 #/HPF (0-2); Squamous Epithelial Cell Urine FEW #/LPF (NONE/RARE); Urine Culture Indicated YES-LC
[2024-10-23] MEDS: 0.9 % SODIUM CHLORIDE 1,000 ML 125 ML IV (17:28)
[2024-10-23] MEDS: PROMETHAZINE HCL 12.5 MG in 0.9 % SODIUM CHLORIDE 50 ML 202 MG IV (17:29)
== END 2024-10-23 21:24 | disposition home or self-care (01) ==
LOC: FBCO 15:39 → FBC 15:40
PROVIDERS: Visit Provider Obstetrics & Gynecology
DX: O26.893 Other specified pregnancy related conditions, third trimester (principal)
CPT/HCPCS: 59025; 81001; 87086; J2550

== ENCOUNTER 2024-11-06 22:30 | Observation (INO) | payer OTHER, SELFPAY ==
--- OUTSIDE RECORDS SUMMARY | 2024-11-06 22:33 | XMS_ITS | CCD ---
Author Organization [facility] Care Team Providers Care Coat Agent Name Role Phone Leah Cramer MD Primary Care Provider LEX RAYMOND Attending Unavailable SHARMAINE, ISELA S Attending Unavailable FLORO, LEX Toribio Attending Unavailable SHARMAINE, ISELA S Attending Unavailable FLORO, LEX Toribio Attending Unavailable FLORO, LEX Toribio Attending Unavailable [...] Peanut-Containin g Drug Products Drug Allergy 07-17-2023 [facility] Healthcare Medications Current Medications Medication Drug Class(es) Dates Sig (Normalized) Sig (Original) [id number] 200 actuat albuterol 0.09 mg/actuat metered dose [...] Active docusate sodium 100 mg oral capsule (11 sources) Start: 09-09-2024 End: 01-07-2025 take 1 capsule by mouth in the morning docusate sodium (Colace) 100 MG capsule Indications: Iron deficiency anemia, unspecified iron deficiency anemia type Take 1 capsule (100 mg) by mouth in the morning and 1 capsule (100 mg) before bedtime. 60 capsule 3 09/09/2024 01/07/2025 Active ferrous sulfate 325 mg delayed release oral tablet (11 sources) Start: 09-09-2024 End: 09-09-2025 take 1 [...] tablet (20 sources) Serotonin Reuptake Inhibitor Start: 11-03-2024 take 1 tablet by mouth once daily sertraline (Zoloft) 25 MG tablet Indications: Anxiety TAKE 1 TABLET(25 MG) BY MOUTH DAILY 90 tablet 11/03/2024 Active Start: 01-28-2024 End: 07-21-2024 take 1 tablet [...] 06-12-2024 Episodic Other and delivery including normal (18 sources) Normal ; Translations: [Encounter for supervision of other normal , second trimester] 06-05-2024 Episodic Other screening for suspected conditions (not mental disorders or infectious disease) (6 sources) Patient encounter status; Translations: [Encounter for [...] Range Facil ity US OB GROWTHon 09-22-[address] [address] Ultrasound Report Signed Patient: ELENA CHOPRA MR#: [id number] : 2000 Acct:[id number] Age/Sex: 23 / F ADM Date: 09/22/24 Loc: US Attending Dr: LEX RAYMOND APRN, CNM Ordering Physician: LEX RAYMOND APRN, CNM Date of Service: 09/22/24 Procedure(s): US OB growth Accession Number(s): [id number] cc: LEX RAYMOND APRN, CNM; Physician,Non-Staff M.DNeftali [place] [address] Patient Name: ELENA CHOPRA MRN: [id number] date: 2000 Sex: F Assigned Patient Location: US Current Patient Location: US Accession/Order Number: [id number] Exam Date: 09/22/2024 13:00 Report Date: 09/22/2024 [...] M.D. Signed By: 09/22/241334 DD/ 31 TD/TT: Logistics Associate: [facility] Radiology, Radiologist, MD - 09/23/2024 [place] [address] Ultrasound Report Signed Patient: ELENA CHOPRA MR#: [id number] : 2000 Acct:[id number] Age/Sex: 23 / F ADM Date: 09/22/24 Loc: US Attending Dr: LEX RAYMOND APRN, CNM Ordering Physician: LEX RAYMOND APRN, CNM Date of Service: 09/22/24 Procedure(s): US OB growth Accession Number(s): [id number] cc: LEX RAYMOND APRN, CNM; Physician,Non-Staff M.DNeftali The [place] [address] Patient Name: ELENA CHOPRA MRN: [facility]:[id number] date: 2000 Sex: F Assigned Patient Location: Current Patient Location: [place] Accession/Order Number: [id number] Exam Date: 09/22/2024 13:00 Report Date: 09/22/2024 [...] Dictated By: Bryson Stauffer M.D. Signed By: 09/22/246 DD/ 31 TD/TT: Logistics Associate: [facility] Radiology Study observation (narrative) [facility] OB GROWTHOrdered By: Dionisio ologist Radiology on [facility]-22-20[facility]: HCG ( test) Ql (U)o n 04-08-2024 Interpretation and review of laboratory results Abnormal [facility] Preg Test, Ur [facility] Vital Signs Date Time Vital Sign Value Performing Clinician Faci lity 11-03-2024 16:46-0400 Body mass index (BMI) [Ratio] 25.79 kg/m2 Lex Floro CNM Work Phone: [facility] 11-03-2024 16:46-0400 Body weight 70.31 kg Lex Floro CNM Work Phone: [facility] 11-03-2024 16:46-0400 Diastolic blood pressure 60 mm[Hg] Lex Floro CNM Work Phone: [facility] 11-03-2024 16:46-0400 Systolic blood pressure 110 mm[Hg] Lex Floro CNM Work Phone: [facility] 10-09-2024 13:01-0500 Body mass index (BMI) [Ratio] 24.96 kg/m2 Lex Floro CNM Work Phone: [facility] 10-09-2024 13:01-0500 Body weight 68.04 kg Lex Floro CNM Work Phone: [facility] 10-09-2024 13:01-0500 Diastolic blood pressure 62 mm[Hg] Lex Floro CNM Work Phone: [facility] 10-09-2024 13:01-0500 Systolic blood pressure 100 mm[Hg] Lex Floro CNM Work Phone: [facility] 09-25-2024 13:09-0500 Body mass index (BMI) [Ratio] 24.3 kg/m2 Lex Floro CNM Work Phone: [facility] 09-25-2024 13:09-0500 Body weight 66.22 kg Lex Floro CNM Work Phone: [facility] 09-25-2024 13:09-0500 Diastolic blood pressure 70 mm[Hg] Lex Floro CNM Work Phone: [facility] 09-25-2024 13:09-0500 Systolic blood pressure 120 mm[Hg] Lex Floro CNM Work Phone: [facility] 08-28-2024 13:04-0500 Body mass index (BMI) [Ratio] 23.3 kg/m2 Lex Floro CNM Work Phone: [facility] 08-28-2024 13:04-0500 Body weight 63.5 kg Lex Floro CNM Work Phone: [facility] 08-28-2024 13:04-0500 Diastolic blood pressure 60 mm[Hg] Lex Floro CNM Work Phone: [facility] 08-28-2024 13:04-0500 Systolic blood pressure 110 mm[Hg] Lex Floro CNM Work Phone: [facility] 07-31-2024 13:37-0500 Body mass index (BMI) [Ratio] 21.97 kg/m2 Lex Floro CNM Work Phone: [facility] 07-31-2024 13:37-0500 Body weight 59.88 kg Lex Floro CNM Work Phone: [facility] 07-03-2024 11:25-0500 Body mass index (BMI) [Ratio] 20.8 kg/m2 Lex Floro CNM Work Phone: [facility] 07-03-2024 11:25-0500 Body weight 56.7 kg Lex Susano CNM Work Phone: [facility] 07-03-2024 11:25-0500 Diastolic blood pressure 70 mm[Hg] Lex Floro CNM Work Phone: [facility] 07-03-2024 11:25-0500 Systolic blood pressure 110 mm[Hg] Lex Susano CNM Work Phone: [facility] 06-12-2024 14:13-0400 Body mass index (BMI) [Ratio] 19.84 kg/m2 Tricia Li HEALTH SCIENCE SPECIALIST Work Phone: [facility] 06-12-2024 14:13-0400 Body temperature 97.3 [degF] Tricia Li HEALTH SCIENCE SPECIALIST Work Phone: [facility] 06-12-2024 14:13-0400 Body weight 54.07 kg Tricia Li HEALTH SCIENCE SPECIALIST Work Phone: [facility] 06-12-2024 14:13-0400 Diastolic blood pressure 62 mm[Hg] Tricia Li HEALTH SCIENCE SPECIALIST Work Phone: [facility] 06-12-2024 14:13-0400 Systolic blood pressure 100 mm[Hg] Tricia Li HEALTH SCIENCE SPECIALIST Work Phone: [facility] 06-05-2024 13:55-0400 Body mass index (BMI) [Ratio] 19.64 kg/m2 Lex Floro CNM Work Phone: [facility] 06-05-2024 13:55-0400 Body weight 53.52 kg Lex Floro CNM Work Phone: [facility] 06-05-2024 13:55-0400 Diastolic blood pressure 60 mm[Hg] Lex Floro CNM Work Phone: [facility] 06-05-2024 13:55-0400 Systolic blood pressure 100 mm[Hg] Lex Floro CNM Work Phone: [facility] 05-26-2024 16:50-0400 Body mass index (BMI) [Ratio] 19.8 kg/m2 Tricia Orellanapatrick HEALTH SCIENCE SPECIALIST Work Phone: [facility] 05-26-2024 16:50-0400 Body temperature 97.3 [degF] Tricia Orellanapatrick HEALTH SCIENCE SPECIALIST Work Phone: [facility] 05-26-2024 16:50-0400 Body weight 53.98 kg Tricia Li HEALTH SCIENCE SPECIALIST Work Phone: [facility] 05-26-2024 16:50-0400 Diastolic blood pressure 60 mm[Hg] Tricia Li HEALTH SCIENCE SPECIALIST Work Phone: [facility] 05-26-2024 16:50-0400 Systolic blood pressure 92 mm[Hg] Tricia Li HEALTH SCIENCE SPECIALIST Work Phone: [facility] 05-08-2024 14:56-0400 Body mass index (BMI) [Ratio] 19.47 kg/m2 Lex Floro CNM Work Phone: [facility] 05-08-2024 14:56-0400 Body weight 53.07 kg Lex Floro CNM Work Phone: [facility] 05-08-2024 14:56-0400 Diastolic blood pressure 70 mm[Hg] Lex Floro CNM Work Phone: [facility] 05-08-2024 14:56-0400 Systolic blood pressure 110 mm[Hg] Lex Floro CNM Work Phone: [facility] 04-08-2024 11:01-0400 Body mass index (BMI) [Ratio] 18.3 kg/m2 Lex Floro CNM Work Phone: [facility] 04-08-2024 11:01-0400 Body weight 49.9 kg Lex Floro CNM Work Phone: [facility] 04-08-2024 11:01-0400 Diastolic blood pressure 60 mm[Hg] Lex Floro CNM Work Phone: [facility] 04-08-2024 11:01-0400 Systolic blood pressure 100 mm[Hg] Lex Raymond CNM Work Phone: [facility] Encounters Encounter Date Encounter Type Care Provider Facility Start: 11-03-2024 End: 11-03-2024 Subsequent care visit Lex Raymond CNM Work Phone: [facility] Comment on above: Encounter for prenat al care of first , third trimester (Primary Dx); screening for streptococcus B Start: 11-03-2024 ambulatory LEX L FLORO Not Aziza ilable Start: 10-29-2024 End: 10-29-2024 ambulatory LEX L FLORO Not Available Start: 10-28-2024 End: 10-28-2024 ambulatory ISELA S SHARMAINE Not Available Start: 10-09-2024 End: 10-09-2024 Bamboo flowsheet Lex Daviso CNM Work Phone: [facility] Start: 10-09-2024 End: 10-09-2024 Bamboo flowsheet Lex Daviso CNM Work Phone: [facility] Start: 10-09-2024 End: 10-09-2024 Subsequent care visit Lex Daviso CNM Work Phone: [facility] Comment on above: Encounter for prenat al care of first , third trimester (Primary Dx) Start: 10-09-2024 End: 10-09-2024 ambulatory LEX L FLORO Not Available Start: 10-01-2024 End: 10-01-2024 Bamboo flowsheet Isela S Weston NATURAL RESOURCES MANAGER-S Work Phone: [facility] Start: 10-01-2024 End: 10-01-2024 Bamboo flowsheet Isela S Weston NATURAL RESOURCES MANAGER-S Work Phone: [facility] Start: 10-01-2024 End: 10-01-2024 ambulatory ISELA S SHARMAINE Not Available Start: 09-25-2024 End: 09-25-2024 Bamboo flowsheet Lex L Floro CNM Work Phone: [facility] Start: 09-25-2024 End: 09-25-2024 Bamboo flowsheet Lex L Floro CNM Work Phone: [facility] Start: 09-25-2024 End: 09-25-2024 ambulatory LEX L FLORO Not Available Start: 09-25-2024 End: 09-25-2024 Subsequent care visit Lex L Floro CNM [...] 08-27-2024 End: 08-27-2024 Bamboo flowsheet Isela S Weston NATURAL RESOURCES MANAGER-S Work Phone: [facility] Start: 08-27-2024 End: 08-27-2024 Bamboo flowsheet Isela S Weston NATURAL RESOURCES MANAGER-S Work Phone: [facility] Start: 08-27-2024 End: 08-27-2024 ambulatory ISELA S SHARMAINE Not Available Start: 07-31-2024 End: 07-31-2024 Bamboo flowsheet Lex Catarino Daviso CNM Work Phone: [facility] Start: 07-31-2024 End: 07-31-2024 Bamboo flowsheet Lex Catarino Daviso CNM Work Phone: [facility] Start: 07-31-2024 End: 07-31-2024 ambulatory LEX L FLORO Not Available Start: 07-31-2024 End: 07-31-2024 Subsequent care visit Lex Daviso CNM Work Phone: [facility] Comment on above: Encounter for prenat al care of first , second trimester (Primary Dx); Nausea/vomiting in Start: 07-20-2024 End: 07-21-2024 Refill Tricia Li HEALTH SCIENCE SPECIALIST Work Phone: [facility] Comment on above: Anxiety Start: 07-14-2024 End: 07-14-2024 Bamboo flowsheet Isela S Sharmaine NATURAL RESOURCES MANAGER-S Work Phone: [facility] Start: 07-14-2024 End: 07-14-2024 Bamboo flowsheet Isela S Weston NATURAL RESOURCES MANAGER-S Work Phone: [facility] Start: 07-14-2024 End: 07-14-2024 ambulatory ISELA S SHARMAINE Not Available Start: 07-03-2024 End: 07-03-2024 Bamboo flowsheet Lex Catarino Floro CNM Work [...] 06-12-2024 End: 06-12-2024 Bamboo flowsheet Tricia Li HEALTH SCIENCE SPECIALIST Work Phone: [facility] Start: 06-12-2024 End: 06-12-2024 Bamboo flowsheet Tricia Li HEALTH SCIENCE SPECIALIST Work Phone: [facility] Start: 06-12-2024 End: 06-12-2024 Office outpatient visit 15 minutes Tricia Li HEALTH SCIENCE SPECIALIST Work Phone: [facility] Comment on above: Left ear pain (Prima ry Dx); Allergic rhinitis, unspecified seasonality, unspecified trigger Start: 06-12-2024 End: 06-12-2024 ambulatory TRICIA LI Not Available Start: 06-11-2024 End: 06-11-2024 Telephone encounter Lex Raymond CNM Work Phone: [facility] Start: 06-09-2024 End: 06-09-2024 Bamboo flowsheet Isela S Sharmaine NATURAL RESOURCES MANAGER-S Work Phone: [facility] Start: 06-09-2024 End: 06-09-2024 Bamboo flowsheet Isela S Weston NATURAL RESOURCES MANAGER-S Work Phone: [facility] Start: [...] Office outpatient visit 15 minutes Tricia Li HEALTH SCIENCE SPECIALIST Work Phone: [facility] Comment on above: Other non-recurrent acute nonsuppurative otitis media of right ear (Primary Dx) Start: 05-26-2024 End: 05-26-2024 ambulatory TRICIA LI Not Available Start: 05-26-2024 End: 05-26-2024 Bamboo flowsheet Tricia Li HEALTH SCIENCE SPECIALIST Work Phone: [facility] Start: 05-26-2024 End: 05-26-2024 Bamboo flowsheet Tricia Li HEALTH SCIENCE SPECIALIST Work Phone: [facility] Start: 05-12-2024 End: 05-12-2024 Bamboo flowsheet Isela S Weston NATURAL RESOURCES MANAGER-S Work Phone: [facility] Start: 05-12-2024 End: 05-12-2024 Bamboo flowsheet Isela S Sharmaine NATURAL RESOURCES MANAGER-S Work Phone: [facility] Start: 05-12-2024 End: 05-12-2024 ambulatory ISELA S SHARMAINE Not Available Start: 05-08-2024 End: 05-08-2024 Subsequent care visit Lex Raymond CNM Work Phone: [facility] Comment on above: Encounter for prenat al care of first , first trimester (Primary Dx); Nausea/vomiting in ; examination or test, positive result Start: 05-08-2024 End: 05-08-2024 ambulatory LEX RAYMOND Not Available Start: 05-08-2024 End: 05-08-2024 Bamboo flowsheet Lex Daviso CNM Work Phone: [facility] Start: 05-08-2024 End: 05-08-2024 Bamboo flowsheet Lex Daviso CNM Work Phone: [facility] Start: 04-24-2024 End: 04-24-2024 Refill Tricia Li HEALTH SCIENCE SPECIALIST Work Phone: [facility] Comment on above: Anxiety Start: 04-16-2024 End: 04-16-2024 Bamboo flowsheet Isela S Sharmaine NATURAL RESOURCES MANAGER-S Work Phone: [facility] Start: 04-16-2024 End: 04-16-2024 Bamboo flowsheet Isela S Weston NATURAL RESOURCES MANAGER-S Work Phone: [facility] Start: 04-16-2024 End: 04-16-2024 Telephone encounter Lex Raymond CNM Work Phone: [facility] Start: 04-16-2024 End: 04-16-2024 ambulatory ISELA S SHARMAINE Not Available Start: 04-08-2024 End: 04-08-2024 Bamboo flowsheet Lex Daviso CNM Work Phone: [facility] Start: 04-08-2024 End: 04-08-2024 Bamboo flowsheet Lex Catarino Floro CNM Work Phone: [facility] Start: 04-08-2024 End: 04-08-2024 Office outpatient visit 15 minutes Lex Raymond CNM Work Phone: [facility] Comment on above: GA: 7w6d Start: 04-08-2024 End: 04-08-2024 ambulatory LEX RAYMOND Not Available Start: 04-07-2024 End: 04-07-2024 Telephone encounter Lex Raymond CNM Work Phone: [...] 11-15-2023 ambulatory TRICIA A LI Not Available Procedures Date Procedure Procedure Detail Performing Clinician Start: 10-01-2024 End: 10-01-2024 Psychotherapy w/patient 60 minutes Anxiety Isela S Weston NATURAL RESOURCES MANAGER-S Work Phone: Comment on above: Anxiety; Depression, unspecified depression type (CMS/HCC) Start: 09-22-2024 [facility] OB GROWTH Lex Daviso CNM Work Phone: Start: 08-27-2024 End: 08-27-2024 Psychotherapy w/patient 60 minutes Anxiety Isela S Weston NATURAL RESOURCES MANAGER-S Work Phone: Comment on above: Anxiety; Depression, unspecified depression type (CMS/HCC) Start: 07-14-2024 End: 07-14-2024 Psychotherapy w/patient 60 minutes Anxiety Isela S Weston NATURAL RESOURCES MANAGER-S Work Phone: Comment on above: Anxiety; Depression, unspecified depression type (CMS/HCC) Start: 06-09-2024 End: 06-09-2024 Psychotherapy w/patient 60 minutes Anxiety Isela Torrie Weston NATURAL RESOURCES MANAGER-S Work Phone: Comment on above: Anxiety; Depression, unspecified depression type (CMS/HCC) Start: 05-12-2024 End: 05-12-2024 Psychotherapy w/patient 60 minutes Anxiety Isela Torrie Sharmaine NATURAL RESOURCES MANAGER-S Work Phone: Comment on above: Anxiety; Depression, unspecified depression type (CMS/HCC) Start: 04-16-2024 End: 04-16-2024 Psychotherapy w/patient 60 minutes Anxiety Isela Torrie Weston NATURAL RESOURCES MANAGER-S Work Phone: Comment on above: Anxiety; Depression, unspecified depression type (CMS/HCC) Start: 04-08-2024 Urine test visual color [id number] david Raymond CNM Work Phone: Plan of Treatment Date Care Activity Detail Author Start: 12-22-2024 End: 12-22-2024 Social Work 12/22/2024 11:00 AM EDT Social Work [facility] [address] [place] [address] Isela Schmid, NATURAL RESOURCES MANAGER-S [address] [place] [address] [facility] Start: 11-10-2024 End: 11-10-2024 Patient encounter procedure 11/10/2024 1:15 PM EDT Routine [facility] [address] [place] [phone] Lex Raymond CNM [address] [place] [address] [facility] Start: 11-03-2024 End: 11-03-2025 STREPTOCCOUS, GROUP B CULTURE STREPTOCCOUS, GROUP B CULTURE Lab Routine screening for streptococcus B Expected: 11/03/2024 (Approximate), Expires: 11/03/2025 [facility] Work Phone: Comment on above: Expected: 11/03/2024 (Approximate), Expires: 11/03/2025 Start: 10-29-2024 End: 10-29-2024 Patient encounter procedure 10/29/2024 4:30 PM EDT Routine [facility] [address] [place] [phone] Lex Raymond, CNM [address] [facility] [place] [address] [facility] Start: 10-28-2024 End: 10-28-2024 Social Work 10/28/2024 2:00 PM EDT Social Work [facility] [address] [place] [address] Isela Schmid, RENNY-S [address] [facility] [place] [address] [facility] Start: 10-09-2024 End: 10-09-2024 Patient encounter procedure [facility] Comment on above: Arrived Start: 10-01-2024 End: 10-01-2024 Social Work [facility] Comment on above: Arrived Start: 09-25-2024 End: 09-25-2024 Patient encounter procedure 09/25/2024 1:00 PM EST Routine [facility] [address] [place] [phone] Lex Raymond, CN [address] [facility] [place] [address] [facility] Start: 08-28-2024 End: 08-28-2025 [...] PM EST Routine [facility] [address] [place] [phone] Lex Raymond, [facility] [address] [place] [address] [facility] Start: 08-27-2024 End: 08-27-2024 Social Work [facility] Comment on above: Arrived Start: 07-31-2024 End: 07-31-2024 Patient encounter procedure 07/31/2024 1:30 PM EST Routine [facility] [address] [place] [phone] Lex Raymond, [facility] [address] [place] [address] [facility] Start: 07-14-2024 End: 07-14-2024 [...] Office Visit [facility] [address] [place] [facility] [phone] Tricia Li HEALTH SCIENCE SPECIALIST [address] [place] [facility] [place] [address] Arrived [facility] Comment on above: Arrived Start: 06-09-2024 End: 06-09-2024 Social Work 06/09/2024 9:00 AM EDT Social Work [facility] [address] [place] [place] [address] Isela Schmid LISW-S [address] [place] [facility] [place] [address] [facility] Start: 06-05-2024 End: 06-05-2024 Patient encounter procedure [facility] Comment on above: Arrived Start: 05-26-2024 End: 05-26-2024 Patient encounter procedure 05/26/2024 5:00 PM EDT Office Visit [facility] [address] [place] [phone] Tricia Li, HEALTH SCIENCE SPECIALIST [address] [facility] [place] [address] Arrived [facility] Comment on above: Arrived Start: 05-12-2024 End: 05-12-2024 Social Work [facility] Comment on above: Arrived Start: 05-08-2024 End: 05-08-2024 Patient encounter procedure [facility] Comment on above: Arrived Start: 05-08-2024 End: 05-08-2025 Bacteria identified in Urine by Culture Urine culture Microbiology Routine examination or test, positive result Expected: 05/08/2024 (Approximate), Expires: 05/08/2025 [facility] Comment on above: Expected: 05/08/2024 (Approximate), Expires: 05/08/2025 Start: 05-08-2024 End: 05-08-2025 DRUG TOX MONITORIGN 6 W/ CONF,URINE DRUG TOX MONITORIGN 6 W/ CONF,URINE Lab Routine examination or test, positive result Expected: 05/08/2024 (Approximate), Expires: 05/08/2025 [facility] Comment on above: Expected: 05/08/2024 (Approximate), Expires: 05/08/2025 Start: 05-08-2024 End: 05-08-2025 Neisseria gonorrhoeae DNA [Presence] in Cervical mucus by MARGO with probe detection C. trachomatis / N. gonorrhoeae, DNA probe Pathology and Cytology Routine examination or test, positive result Expected: 05/08/2024 (Approximate), Expires: 05/08/2025 [facility] Comment on above: Expected: 05/08/2024 (Approximate), Expires: 05/08/2025 Start: 05-08-2024 End: 05-08-2025 TSH W/REFLEX TO FT4 TSH W/REFLEX TO FT4 Lab Routine examination or test, positive result Expected: 05/08/2024 (Approximate), Expires: 05/08/2025 [facility] Comment on above: Expected: 05/08/2024 (Approximate), Expires: 05/08/2025 Start: 05-08-2024 End: 05-08-2025 URINALYSIS MICROSCOPIC URINALYSIS MICROSCOPIC Lab Routine examination or test, positive result Expected: 05/08/2024 (Approximate), Expires: 05/08/2025 [facility] Comment on above: Expected: 05/08/2024 (Approximate), Expires: 05/08/2025 Start: 04-16-2024 End: 04-16-2024 Social Work [facility] Comment on above: Arrived Start: 04-13-2024 Influenza vaccination Influenza Vacc ine (#1) [facility] Start: 04-09-2024 End: 04-09-2024 ambulatory 04/09/2024 11:30 AM EDT Initial [facility] [address] [place] [address] Lex Raymond, CNM [address] [place] [address] [facility] Start: 04-09-2024 End: 04-09-2024 Professional / ancillary services management 04/09/2024 11:30 AM EDT Ancillary Procedure [facility] [address] [address] [facility] Start: 04-08-2024 End: 04-08-2024 ambulatory 04/08/2024 11:30 AM EDT Initial [facility] [address] [place] [address] Lex Raymond, LUCIAM [address] [place] [address] Arrived [facility] Comment on above: Arrived ABO/Rh ABO/Rh Lab Routi ne examination or test, positive result Ordered: 05/08/2024 [facility] Comment on above: Ordered: 05/08/2024 Antibody screen Antibody screen Lab Routine examination or test, positive result Ordered: 05/08/2024 [facility] Comment on above: Ordered: 05/08/2024 CBC panel - Blood by Automated count CBC Lab Routine examination or test, positive result Ordered: 05/08/2024 [facility] Comment on above: Ordered: 05/08/2024 Hemoglobin A1c/Hemoglobin.total in Blood Hemoglobin A1c Lab Routine examination or test, positive result Ordered: 05/08/2024 [facility] Comment on above: Ordered: 05/08/2024 Hepatitis B virus surface Ag [Presence] in Serum or Plasma by Immunoassay Hepatitis B surface antigen Lab Routine examination or test, positive result Ordered: 05/08/2024 [facility] Work Phone: Comment on above: Ordered: 05/08/2024 Hepatitis C virus Ab [Presence] in Serum or Plasma by Immunoassay Hepatitis C antibody Lab Routine examination or test, positive result Ordered: 05/08/2024 [facility] Comment on above: Ordered: 05/08/2024 HIV-1/HIV-2 antigen/antibody combination immunoassay HIV-1 and HIV-2 antibodies Lab Routine examination or test, positive result Ordered: 05/08/2024 [facility] Comment on above: Ordered: 05/08/2024 Reagin Ab [Presence] in Serum by RPR RPR Lab Routine examination or test, positive result Ordered: 05/08/2024 [facility] Comment on above: Ordered: 05/08/2024 Rubella antibody, IgG Rubella an tibody, IgG Lab Routine examination or test, positive result Ordered: 05/08/2024 [facility] Comment on above: Ordered: 05/08/2024 Immunizations Immunization Date Immunization Notes Care Provider Dina moon 11-01-2004 diphtheria, tetanus toxoids and acellular pertussis vaccine Lex Floro [facility] Work Phone: [facility] 11-01-2004 measles, mumps and rubella virus vaccine Lex Floro [facility] Work Phone: [facility] 11-01-2004 poliovirus vaccine, inactivated Lex Floro [facility] Work Phone: [facility] 02-25-2001 diphtheria, tetanus toxoids and acellular pertussis vaccine, unspecified formulation Lex Floro [facility] Work Phone: [facility] 02-25-2001 haemophilus influenz ae type b vaccine, conjugate unspecified formulation Lex [facility] Work Phone: [facility] 12-24-2000 measles, mumps and rubella virus vaccine Lex Floro [facility] Work Phone: [facility] 07-13-2000 diphtheria, tetanus toxoids and acellular pertussis vaccine, unspecified formulation Lex Floro [facility] Work Phone: [facility] 07-13-2000 haemophilus influenz ae type b conjugate and Hepatitis B vaccine Lex Floro [facility] Work Phone: [facility] 07-13-2000 poliovirus vaccine, inactivated Lex Floro [facility] Work Phone: [facility] 05-11-2000 diphtheria, tetanus toxoids and acellular pertussis vaccine, unspecified formulation Lex Floro [facility] Work Phone: [facility] 05-11-2000 haemophilus influenz ae type b vaccine, conjugate unspecified formulation Lex Floro CNM Work Phone: [facility] 05-11-2000 poliovirus vaccine, inactivated Lex Floro CNM Work Phone: [facility] 03-09-2000 diphtheria, tetanus toxoids and acellular pertussis vaccine, unspecified formulation Lex Floro CNM Work Phone: [facility] 03-09-2000 haemophilus influenz ae type b conjugate and Hepatitis B vaccine Lex Floro CNM Work Phone: [facility] 03-09-2000 poliovirus vaccine, inactivated Lex Floro CNM Work Phone: [facility] 1999 hepatitis B vaccine, pediatric or pediatric/adolescent dosage Lex Floro CNM Work Phone: [facility] Payers Date Payer Category Payer [facility] Health Insurance [facility] [id number] 2022 Unknown [employer] [id number] 2022-Present [phone] [address] [address] [place] [address] [id number] 2022 Unknown [id number] 1969 Unknown [id number] 2.16.840.1.586014.3.579 .2.1258 1969 Unknown [id number] 2.16.840.1.901213.3.579 .2.1258 1969 Unknown [id number] 2.16.840.1.855271.3.579 .2.1258 1969 Unknown [id number] 2.16.840.1.555383.3.579 .2.1258 1969 Unknown [id number] 2.16.840.1.929273.3.579 .2.1258 1969 Unknown [id number] 2.16.840.1.274854.3.579 .2.1258 1969 Unknown [id number] 2.16.840.1.624499.3.579 .2.1258 1969 Unknown [id number] 2.16.840.1.728488.3.579 .2.1258 1969 Unknown [id number] 2.16.840.1.031782.3.579 .2.1258 1969 Unknown [id number] 2.16.840.1.195428.3.579 .2.1258 1969 Unknown [id number] 2.16.840.1.710852.3.579 .2.1258 1969 Unknown [id number] 2.16.840.1.632872.3.579 .2.1258 1969 Unknown [id number] 2.16.840.1.406389.3.579 .2.1258 1969 Unknown [id number] 2.16.840.1.854034.3.579 .2.1258 1969 Unknown [id number] 2.16.840.1.927836.3.579 .2.9 1969 Unknown [id number] 2.16.840.1.101662.3.579 .2.1258 1969 Unknown [id number] 2.16.840.1.964678.3.579 .2.1258 1969 Unknown [id number] 2.16.840.1.534976.3.579 .2.1258 1969 Unknown [id number] 2.16.840.1.916819.3.579 .2.1258 1969 Unknown [id number] 2.16.840.1.968743.3.579 .2.1258 1969 Unknown [id number] 2.16.840.1.069357.3.579 .2.1258 1969 Unknown [id number] 2.16.840.1.005180.3.579 .2.1258 1969 Unknown [id number] 2.16.840.1.620493.3.579 .2.1258 1969 Unknown [id number] 2.16.840.1.366804.3.579 .2.1258 1969 Unknown [id number] 2.16.840.1.285183.3.579 .2.1258 1969 Unknown [id number] 2.16.840.1.290190.3.579 .2.9 Social History Date Type Detail Facility Start: 07-17-2023 Tobacco smoking stat [facility] Never smoked tobacco [facility] Start: 07-17-2023 [...] caffeine: 1-2 cups per day coffee, soda/pop [facility] Start: 02-27-2024 [facility] Start: 1999 Sex assigned at Not on file [facility] Start: 10-25-2022 Gender identity Identifies as female gender (finding) [facility] Clinical Notes 04-07-2024 to 11-03-2024 Lex Raymond CNM - 11/03/2024 5:00 PM EDTLex Raymond CNM - 10/09/2024 1:00 PM ESTLex Raymond, NAKUL - 09/25/2024 1:00 PM Amy Raymond CNM - 08/28/2024 1:00 PM EST Note Date & Type Note Facility 11-03-2024 History of Presen t illness Narrative Subjective No chief complaint on file. Elena Chopra is a 23 y.o. at 36w1d with a working estimated date of delivery [...] Her is complicated by: nausea and vomiting Objective Physical Exam weight: 155 lb Expected Total Weight Gain: 27 lb-39 lb Pregravid BMI: 18.31 BP: 110/60 Urine protein-negative Urine glucose-negative Assessment/Plan Continue vitamin. Labs reviewed. GBS taken today Patient states her N/V is much better, she has not vomited since I she was seen by me last week. Expected mode of delivery Follow up in 1 week for a routine visit. documented in this encounter [facility] 10-09-2024 History of Presen t illness Narrative [...] a routine visit. documented in this encounter [facility] 09-25-2024 History of Presen t illness Narrative [...] sent to pharmacy. documented in this encounter [facility] 08-28-2024 History of Presen t illness Narrative [...] a routine visit. documented in this encounter [facility] 07-31-2024 History of Presen t illness Narrative [...] a routine visit. documented in this encounter [facility] 07-03-2024 History of Presen t illness Narrative [...] a routine visit. documented in this encounter [facility] 06-12-2024 History of Presen t illness Narrative [...] room every night. documented in this encounter [facility] 06-11-2024 Telephone encount er Note Was in - ear inf- still having pain and today is last day of antibiotic. Maurice Parker- [phone] [facility] 06-11-2024 Miscellaneous Notes Formattin g of this note might be different from the original. Was in - ear inf- still having pain and today is last day of antibiotic. Maurice Parker- [phone] documented in this encounter [facility] 06-05-2024 History of Presen t illness Narrative [...] a routine visit. documented in this encounter [facility] 05-26-2024 History of Presen t illness Narrative [...] for 7 days. documented in this encounter [facility] 05-08-2024 History of Presen t illness Narrative [...] a routine visit. documented in this encounter [facility] 04-16-2024 Telephone encount er Note Pt was sent to [facility] at her last appt due to dehydration and another appt was not scheduled, so she would like to schedule Currently she is at 7 weeks. [phone] [facility] 04-16-2024 Miscellaneous Notes Formattin g of this note might be different from the original. Pt was sent to [facility] at her last appt due to dehydration and another appt was not scheduled, so she would like to schedule Currently she is at 7 weeks. [phone] documented in this encounter [facility] 04-08-2024 History of Presen t illness Narrative [...] reviewed this encounter and updated as appropriate: @RULESMARTLINK([id number],TOBYESPROV)@@ RULESMARTLINK([id number],ALGYESPROV)@@R ULESM ARTLINK([id number],MEDYESPROV)@@RULESMA RTLINK([id number],PROBYESPROV)@@RULESMA RTLIN K([id number],MHYESPROV)@@RULESMARTLINK( [id number],SHYESPROV)@@RULESMARTLINK([id number], FHYESPROV)@@RULESMARTLINK([id number],SO HYESPROV)@ Review of Systems Objective Physical Exam [...] also given office phone number and [facility] number to call in case of an emergency or after hours needs. PVU and all questions answered. We did discuss place of delivery. Patient should plan to go to [facility] for all services unless an emergency and they need to go to the closest ER. We can make other arrangements possibly if patient would like to deliver at another facility but I did explain I am now at [facility] 100% of the time and would like to do all deliveries there. documented in this encounter [facility] 04-07-2024 Telephone encount er Note Please call Elena about medication you have discussed - ty [phone] [facility] 04-07-2024 Miscellaneous Notes Formattin g of this note might be different from the original. Please call Elena about medication you have discussed - ty [phone] documented in this encounter [facility] Healthcare Evaluation note Diagnosis Other non-recurrent acute [...] Anxiety state, unspecified Depression, unspecified depression type ([facility]) [facility] Diagnosis Encounter for care of first , third trimester- Primary documented in this encounter [facility]* Diagnosis Encounter for care of first , third trimester- Primary screening for streptococcus B screening for Streptococcus B documented in this encounter [facility] Summary Purpose Family History No Family History Records Found Advance Directives No Advanced Directives Records Found Additional Source Comments Care Teams (unrecognized sec tion and content) Coat Agent Relationship Specialty Start Date End Date Leah Cramer MD [address] [place] [address] PCP - General Family Medicine 12/19/22 Coat Agent Relationship Specialty Start Date End Date Leah Cramer MD [address] [place] [address] PCP - General Family Medicine 12/19/22 Coat Agent Relationship Specialty Start Date End Date Leah Cramer MD [address] [place] [address] PCP - General Family Medicine 12/19/22 Coat Agent Relationship Specialty Start Date End Date Leah Cramer MD [address] [place] [address] PCP - General Family Medicine 12/19/22 Coat Agent Relationship Specialty Start Date End Date Leah Cramer MD [address] [place] [address] PCP - General Family Medicine 12/19/22 Coat Agent Relationship Specialty Start Date End Date Leah Cramer MD [address] [place] [address] PCP - General Family Medicine 12/19/22 Coat Agent Relationship Specialty Start Date End Date Leah Cramer MD [address] [place] [address] PCP - General Family Medicine 12/19/22 Coat Agent Relationship Specialty Start Date End Date Leah Cramer MD [address] [place] [address] PCP - General Family Medicine 12/19/22 Coat Agent Relationship Specialty Start Date End Date Leah Cramer MD [address] [place] [address] PCP - General Family Medicine 12/19/22 Coat Agent Relationship Specialty Start Date End Date Leah Cramer MD [address] [place] [address] PCP - General Family Medicine 12/19/22 Coat Agent Relationship Specialty Start Date End Date Leah Cramer MD [address] [place] [address] PCP - General Family Medicine 12/19/22 Coat Agent Relationship Specialty Start Date End Date Leah Cramer MD [address] [place] [address] PCP - General Family Medicine 12/19/22 Reason for Visit (unrecogniz ed section and content) Reason Comments URI Reason Comments counseling session Reason Comments Follow-up Reason Comments Med Refill INFORMATION SOURCE (unrecogn ized section and content) DATE CREATED AUTHOR 11/04/2024 [facility] EPIC FOR RECORDS PERTAINING TO PATIENTS WHO ARE [...] BE BASED ON THE PRIMARY CLINICAL RECORDS. [employer] [facility]. provides no warranty or guarantee of the accuracy or completeness of information in this document.
[2024-11-06 22:44] VITALS: BP 120/62; PULSE 74
[2024-11-06 23:10] LABS: Bilirubin Urine NEGATIVE (NEGATIVE); Blood Urine NEGATIVE (NEGATIVE); Clarity Urine SL CLOUDY (CLEAR); Color Urine LT. YELLOW (YELLOW); Glucose Urine UA NEGATIVE (NEGATIVE); Ketones Urine NEGATIVE (NEGATIVE); Leukocyte Esterase Urine LARGE (NEGATIVE); Nitrite Urine NEGATIVE (NEGATIVE); Protein Urine NEGATIVE (NEG/TRACE); Specific Gravity Urine 1.015 (1.005-1.025); Urobilinogen Urine 0.2 EU/dL (0.2-1.0)
[2024-11-06 23:13] LABS: Urine Microscopic Indicated YES
[2024-11-06 23:16] LABS: Urine Culture Indicated YES-LC
[2024-11-06 23:18] LABS: Bacteria Urine LARGE #/HPF (NONE SEEN); Cast Seen? NONE SEEN #/LPF (NONE SEEN); Crystals Seen? None Seen #/HPF (None Seen); Mucus Urine NONE SEEN (NONE SEEN); RBC Urine NONE SEEN #/HPF (0-2); Squamous Epithelial Cell Urine MODERATE #/LPF (NONE/RARE); WBC Urine 75-100 #/HPF (NONE SEEN)
== END 2024-11-07 01:30 | disposition home or self-care (01) ==
PROVIDERS: Admitting Provider Midwife; Visit Provider Midwife
DX: O47.03 False labor before 37 completed weeks of gestation, third trimester (principal); Z3A.36 36 weeks gestation of pregnancy
CPT/HCPCS: 81001; 87086; G0378; G0379

== ENCOUNTER 2024-11-22 10:52 | Inpatient (IN) | payer OTHER, SELFPAY ==
[2024-11-22] VITALS (61 sets, daily range): BP systolic 81–234; BP diastolic 50–156; PULSE 56–193; TEMP 26.8–36.8
--- OUTSIDE RECORDS SUMMARY | 2024-11-22 10:56 | XMS_ITS | CCD ---
Author Organization [facility] CliniSyvt Care Team Providers Care Fibrous Plasterer Name Role Phone Leah Cramer MD Primary Care Provider SHARMAINE, ISELA S Attending Unavailable SHARMAINE, ISELA S Attending Unavailable SHARMAINE, ISELA S Attending Unavailable LI, TRICIA Clark Attending Unavailab le SHARMAINE, ISELA S Attending Unavailable SHARMAINE, ISELA S Attending Unavailable FLORO, LEX L Attending Unavailable SHARMAINE, ISELA S Attending Unavailable FLORO, LEX Toribio Attending Unavailable SHARMAINE, ISELA S Attending Unavailable LI, TRICIA Clark Attending Unavailab le FLORO, LEX L Attending Unavailable SHARMAINE, ISELA S Attending Unavailable LI, TRICIA A Attending Unavailab le FLORO, LEX L Attending Unavailable SHARMAINE, ISELA S Attending Unavailable FLORO, LEX L Attending Unavailable SHARMAINE, ISELA S Attending Unavailable FLORO, LEX L Attending Unavailable FLORO, LEX L Attending Unavailable SHARMAINE, ISELA S Attending Unavailable FLORO, LEX L Attending Unavailable SHARMAINE, ISELA S Attending Unavailable FLORO, LEX L Attending Unavailable FLORO, LEX L Attending Unavailable FLORO, LEX L Attending Unavailable FLORO, LEX L Attending Unavailable Allergies Allergy Classification Reported Allergen(s) Allergy Type Date of Onset Reaction(s) Facility (20 sources) Peanut-Containin g Drug Products Drug Allergy 07-17-2023 [facility] Medications Current Medications Medication Drug Class(es) Dates Sig (Normalized) Sig (Original) [id number] actuat albuterol 0.09 mg/actuat metered dose [...] Active docusate sodium 100 mg oral capsule (17 sources) Start: 09-09-2024 End: 03-13-2025 take 1 capsule by mouth in the morning docusate sodium (Colace) 100 MG capsule Indications: Iron deficiency anemia, unspecified iron deficiency anemia type Take 1 capsule (100 mg) by mouth in the morning and 1 capsule (100 mg) before bedtime. 60 capsule 3 11/13/2024 03/13/2025 Active ferrous sulfate 325 mg delayed release oral tablet (17 sources) Start: 09-09-2024 End: 09-09-2025 take 1 [...] tablet (20 sources) Serotonin-3 Receptor Antagonist Start: 11-17-2024 End: 2024 take 1 tablet by mouth twice daily as needed for nausea ondansetron (Zofran) 8 MG tablet Indications: Nausea/vomiting in Take 1 tablet (8 mg) by mouth 2 (two) times a day as needed for nausea 10 tablet 1 11/17/2024 2024 Active Start: 08-19-2024 End: 09-25-2024 take 1 tablet [...] second trimester] 07-03-2024 Episodic Other complications of (10 sources) Vomiting of , unspecified; Translations: [Unspecified vomiting of , unspecified as to episode of care or not applicable] 05-08-2024 Episodic Other ear and sense organ disorders (2 sources) Otalgia, right ear; Translations: [Otalgia, unspecified] 06-05-2024 Episodic Other ear and sense organ disorders (2 sources) Otalgia, left ear; Translations: [Otalgia, unspecified] 06-12-2024 Episodic Other and delivery including normal (20 sources) Normal ; Translations: [Encounter for supervision [...] Name Value Interpretation Reference Range Facil ity No Panel Informationon 11-06 Interpretation and review of laboratory results Abnormal [facility] UA (CLEAN/CATCH) BUILDING MAINTENANCE TECHNICIAN/DIMAS RO IF IND.on 11-06-2024 BILIRUBIN URINE Negative NEGATIVE [facility] BLOOD URINE Negative NEGATIVE [facility] Clarity (U) SL CLOUDY CLEAR [facility] Color (U) LT. YELLOW YELLOW [facility] GLUCOSE URINE UA Negative NEGATIVE mg/dL [facility] Ketones Ql (U) Negative NEGATIVE mg/dL [facility] Leukocyte esterase Test strip Ql (U) LARGE Abnormal NEGATIVE [facility] NITRITE URINE Negative NEGATIVE [facility] pH (U) 6.0 [pH] 5.0 - 9.0 [facility] PROTEIN URINE Negative NEG/TRACE mg/dL [facility] SPECIFIC GRAVITY URINE 1.015 1.005 - 1.025 [facility] URINE MICROSCOPIC INDICATED YES [facility] UROBILINOGEN URINE 0.2 EU/dL 0.2 - 1.0 EU/dL [facility] URINE MICROSCOPIC ONLYon 11-06-2024 BACTERIA URINE LARGE Abnormal NONE SEEN #/HPF [facility] CAST SEEN? NONE SEEN NONE SEEN #/LPF [facility] CRYSTALS SEEN? None Seen None Seen #/HPF [facility] MUCUS URINE NONE SEEN NONE SEEN [facility] SQUAMOUS EPITHELIAL CELL URINE MODERATE Abnormal NONE/RARE #/LPF [facility] RBC NONE SEEN [facility] WBC 75-100 Abnormal NONE SEEN #/HPF [facility] URINE CULTURE INDICATED YES-LC [facility] US OB GROWTHon 09-22-[address] [address] Ultrasound Report Signed Patient: ELENA CHOPRA MR#: [id number] : 2000 Acct:[id number] Age/Sex: 23 / F ADM Date: 09/22/24 Loc: US Attending Dr: LEX RAYMOND APRN, CNM Ordering Physician: LEX RAYMOND APRN, CNM Date of Service: 09/22/24 Procedure(s): US OB growth Accession Number(s): [id number] cc: LEX RAYMOND APRN, CNM; Physician,Non-Staff [facility] [address] [address] Patient Name: ELENA CHOPRA MRN: [facility]:[id number] date: 2000 Sex: F Assigned Patient Location: Current Patient Location: [place] Accession/Order Number: [id number] Exam Date: 09/22/2024 13:00 Report Date: 09/22/2024 [...] By: Bryson Stauffer M.D. Signed By: 09/22/24 1335 DD/ 133 TD/TT: Hop Worker: [facility] Radiology, Radiologist, - 09/23/2024 [place] [address] Ultrasound Report Signed Patient: ELENA CHOPRA MR#: [id number] : 2000 Acct:[id number] Age/Sex: 23 / F ADM Date: 09/22/24 Loc: US Attending Dr: LEX RAYMOND APRN, CNM Ordering Physician: LEX RAYMOND APRN, CNM Date of Service: 09/22/24 Procedure(s): US OB growth Accession Number(s): [id number] cc: LEX RAYMOND APRN, CNM; Physician,Non-Staff M.DNeftali [place] [address] Patient Name: ELENA CHOPRA MRN: [id number] date: 2000 Sex: F Assigned Patient Location: US Current Patient Location: [place] Accession/Order Number: [id number] Exam Date: 09/22/2024 13:00 Report Date: 09/22/2024 [...] M.D. Signed By: 09/22/241334 DD/ 31 TD/TT: Hop Worker: [facility] Radiology Study observation (narrative) [facility] US OB GROWTHOrdered By: Dionisio ologist Radiology on 09-22-2024 [facility] [employer] Work Phone: HCG ( test) Ql (U)o n 04-08-2024 Interpretation and review of laboratory results Abnormal [facility] Preg Test, Ur Positive [facility] Vital Signs Date Time Vital Sign Value Performing Clinician Faci lity 11-17-2024 13:32-0400 Body mass index (BMI) [Ratio] 25.79 kg/m2 Lex Floro CNM Work Phone: [facility] 11-17-2024 13:32-0400 Body weight 70.31 kg Lex Floro CNM Work Phone: [facility] 11-17-2024 13:32-0400 Diastolic blood pressure 80 mm[Hg] Lex Floro CNM Work Phone: [facility] 11-17-2024 13:32-0400 Systolic blood pressure 118 mm[Hg] Lex Floro CNM Work Phone: [facility] 11-10-2024 13:15-0400 Body mass index (BMI) [Ratio] 25.79 kg/m2 Lex Floro CNM Work Phone: [facility] 11-10-2024 13:15-0400 Body weight 70.31 kg Lex Floro CNM Work Phone: [facility] 11-10-2024 13:15-0400 Diastolic blood pressure 70 mm[Hg] Lex Floro CNM Work Phone: [facility] 11-10-2024 13:15-0400 Systolic blood pressure 114 mm[Hg] Lex Floro CNM Work Phone: [facility] 11-03-2024 16:46-0400 Body mass index (BMI) [Ratio] 25.79 kg/m2 Lex Floro CNM Work Phone: [facility] 11-03-2024 16:46-0400 Body weight 70.31 kg Lex Floro CNM Work Phone: [facility] 11-03-2024 16:46-0400 Diastolic blood pressure 60 mm[Hg] Lex Floro CNM Work Phone: [facility] 11-03-2024 16:46-0400 Systolic blood pressure 110 mm[Hg] Lex Floro CNM Work Phone: [facility] 10-09-2024 13:01-0500 Body mass index (BMI) [Ratio] 24.96 kg/m2 Lex Floro CNM Work Phone: [facility] 10-09-2024 13:01-0500 Body weight 68.04 kg Lex Floro CNM Work Phone: [facility] 10-09-2024 13:01-0500 Diastolic blood pressure 62 mm[Hg] Lex Floro CNM Work Phone: [facility] 10-09-2024 13:01-0500 Systolic blood pressure 100 mm[Hg] Lex Floro CNM Work Phone: [facility] 09-25-2024 13:09-0500 Body mass index (BMI) [Ratio] 24.3 kg/m2 Lex Floro CNM Work Phone: [facility] 09-25-2024 13:09-0500 Body weight 66.22 kg Lex Floro CNM Work Phone: [facility] 09-25-2024 13:09-0500 Diastolic blood pressure 70 mm[Hg] Lex Floro CNM Work Phone: [facility] 09-25-2024 13:09-0500 Systolic blood pressure 120 mm[Hg] Lex Floro CNM Work Phone: [facility] 08-28-2024 13:04-0500 Body mass index (BMI) [Ratio] 23.3 kg/m2 Lex Floro CNM Work Phone: [facility] 08-28-2024 13:04-0500 Body weight 63.5 kg Lex Floro CNM Work Phone: [facility] 08-28-2024 13:04-0500 Diastolic blood pressure 60 mm[Hg] Lex Floro CNM Work Phone: [facility] 08-28-2024 13:04-0500 Systolic blood pressure 110 mm[Hg] Lex Floro CNM Work Phone: [facility] 07-31-2024 13:37-0500 Body mass index (BMI) [Ratio] 21.97 kg/m2 Lex Floro CNM Work Phone: [facility] 07-31-2024 13:37-0500 Body weight 59.88 kg Lex Floro CNM Work Phone: [facility] 07-03-2024 11:25-0500 Body mass index (BMI) [Ratio] 20.8 kg/m2 Lex Floro CNM Work Phone: [facility] 07-03-2024 11:25-0500 Body weight 56.7 kg Lex Floro CNM Work Phone: [facility] 07-03-2024 11:25-0500 Diastolic blood pressure 70 mm[Hg] Lex Floro CNM Work Phone: [facility] 07-03-2024 11:25-0500 Systolic blood pressure 110 mm[Hg] Lex Floro CNM Work Phone: [facility] 06-12-2024 14:13-0400 Body mass index (BMI) [Ratio] 19.84 kg/m2 Tricia Li [employer] Work Phone: [facility] 06-12-2024 14:13-0400 Body temperature 97.3 [degF] Tricia Orellanapatrick [employer] Work Phone: [facility] 06-12-2024 14:13-0400 Body weight 54.07 kg Tricia Li [employer] Work Phone: [facility] 06-12-2024 14:13-0400 Diastolic blood pressure 62 mm[Hg] Tricia Li [employer] Work Phone: [facility] 06-12-2024 14:13-0400 Systolic blood pressure 100 mm[Hg] Tricia Li [employer] Work Phone: [facility] 06-05-2024 13:55-0400 Body mass index (BMI) [Ratio] 19.64 kg/m2 Lex Susano CNM Work Phone: [facility] 06-05-2024 13:55-0400 Body weight 53.52 kg Lex Floro CNM Work Phone: [facility] 06-05-2024 13:55-0400 Diastolic blood pressure 60 mm[Hg] Lex Susano CNM Work Phone: [facility] 06-05-2024 13:55-0400 Systolic blood pressure 100 mm[Hg] Lex Susano CNM Work Phone: [facility] 05-26-2024 16:50-0400 Body mass index (BMI) [Ratio] 19.8 kg/m2 Tricia Li [employer] Work Phone: [facility] 05-26-2024 16:50-0400 Body temperature 97.3 [degF] Tricia Li [employer] Work Phone: [facility] 05-26-2024 16:50-0400 Body weight 53.98 kg Tricia Li [employer] Work Phone: [facility] 05-26-2024 16:50-0400 Diastolic blood pressure 60 mm[Hg] Tricia Li [employer] Work Phone: [facility] 05-26-2024 16:50-0400 Systolic blood pressure 92 mm[Hg] Tricia Li [employer] Work Phone: [facility] 05-08-2024 14:56-0400 Body mass index (BMI) [Ratio] 19.47 kg/m2 Lex Susano CNM Work Phone: [facility] 05-08-2024 14:56-0400 Body weight 53.07 kg Lex Susano CNM Work Phone: [facility] 05-08-2024 14:56-0400 Diastolic blood pressure 70 mm[Hg] Lex Susano CNM Work Phone: [facility] 05-08-2024 14:56-0400 Systolic blood pressure 110 mm[Hg] Lex Susano CNM Work Phone: [facility] 04-08-2024 11:01-0400 Body mass index (BMI) [Ratio] 18.3 kg/m2 Lex Susano CNM Work Phone: [facility] 04-08-2024 11:01-0400 Body weight 49.9 kg Lex Susano CNM Work Phone: [facility] 04-08-2024 11:01-0400 Diastolic blood pressure 60 mm[Hg] Lex Susano CNM Work Phone: [facility] 04-08-2024 11:01-0400 Systolic blood pressure 100 mm[Hg] Lex Susano CNM Work Phone: [facility] Encounters Encounter Date Encounter Type Care Provider Facility Start: 11-17-2024 End: 11-17-2024 Bamboo flowsheet Lex Catarino Padrono CNM Work Phone: [facility] Start: 11-17-2024 End: 11-17-2024 Bamboo flowsheet Lex Catarino Padrono CNM Work Phone: [facility] Start: 11-17-2024 ambulatory LEX PADRONO Not Aziza ilable Start: 11-17-2024 End: 11-17-2024 Subsequent care visit Lex Padrono CNM Work Phone: [facility] Comment on above: Encounter for prenat al care of first , third trimester (Primary Dx); Nausea/vomiting in Start: 11-10-2024 End: 11-10-2024 Subsequent care visit Lex Padrono CNM Work Phone: [facility] Comment on above: Encounter for prenat al care of first , third trimester (Primary Dx); Nausea/vomiting in Start: 11-10-2024 End: 11-10-2024 ambulatory LEX L FLORO Not Available Start: 11-06-2024 End: 11-07-2024 Clinisync Result Encounter Lex Padrono CNM Work Phone: [facility] Unsolicited Start: 11-06-2024 End: 11-07-2024 Clinisync Result Encounter Lex Padrono CNM Work Phone: [facility] Unsolicited Start: 11-03-2024 End: 11-03-2024 Subsequent care visit Lex L Floro CNM Work Phone: [facility] Comment on above: Encounter for prenat al care of first , third trimester (Primary Dx); screening for streptococcus B Start: 11-03-2024 End: 11-03-2024 ambulatory LEX L FLORO Not Available Start: 10-29-2024 End: 10-29-2024 ambulatory LEX L FLORO Not Available Start: 10-28-2024 End: 10-28-2024 ambulatory ISELA S SHARMAINE Not Available Start: 10-09-2024 End: 10-09-2024 Bamboo flowsheet Lex L Floro CNM Work Phone: [facility] Start: 10-09-2024 End: 10-09-2024 Bamboo flowsheet Lex L Floro CNM Work Phone: [facility] Start: 10-09-2024 End: 10-09-2024 Subsequent care visit Lex L Floro CNM Work Phone: [facility] Comment on above: Encounter for prenat al care of first , third trimester (Primary Dx) Start: 10-09-2024 End: 10-09-2024 ambulatory LEX L FLORO Not Available Start: 10-01-2024 End: 10-01-2024 Bamboo flowsheet Isela S Sharmaine BATTERY INSTALLER-S Work Phone: [facility] Start: 10-01-2024 End: 10-01-2024 Bamboo flowsheet Isela S Sharmaine BATTERY INSTALLER-S Work Phone: [facility] Start: 10-01-2024 End: 10-01-2024 ambulatory ISELA S SHARMAINE Not Available Start: 09-25-2024 End: 09-25-2024 Bamboo flowsheet Lex L Floro CNM Work Phone: [facility] Start: 09-25-2024 End: 09-25-2024 Bamboo flowsheet Lex L Floro CNM Work Phone: [facility] Start: 09-25-2024 End: 09-25-2024 ambulatory LEX L FLORO Not Available Start: 09-25-2024 End: 09-25-2024 Subsequent care visit Lex Catarino Floro CNM Work Phone: [facility] [...] Phone: [facility] Start: 08-28-2024 End: 01-16-2025 Bamboo flowsheet Lex L Floro CNM Work Phone: [facility] Start: 08-28-2024 End: 08-28-2024 ambulatory LEX L FLORO Not Available Start: 08-28-2024 End: 08-28-2024 Subsequent care visit Lex Padrono CNM Work Phone: [facility] Comment on above: Encounter for prenat al care of first , second trimester (Primary Dx); Screening for diabetes mellitus; Screening for iron deficiency anemia; related condition in third trimester Start: 08-27-2024 End: 08-27-2024 Bamboo flowsheet Isela S Calhoun BATTERY INSTALLER-S Work Phone: [facility] Start: 08-27-2024 End: 08-27-2024 Bamboo flowsheet Isela S Sharmaine BATTERY INSTALLER-S Work Phone: [facility] Start: 08-27-2024 End: 08-27-2024 ambulatory ISELA S SHARMAINE Not Available Start: 07-31-2024 End: 07-31-2024 Bamboo flowsheet Lex L Floro CNM Work Phone: [facility] Start: 07-31-2024 End: 07-31-2024 Bamboo flowsheet Lex L Floro CNM Work Phone: [facility] Start: 07-31-2024 End: 07-31-2024 ambulatory LEX L FLORO Not Available Start: 07-31-2024 End: 07-31-2024 Subsequent care visit Lex Padrono CNM Work Phone: [facility] Comment on above: Encounter for prenat al care of first , second trimester (Primary Dx); Nausea/vomiting in Start: 07-20-2024 End: 07-21-2024 Refill Tricia Li NP Work Phone: [facility] Comment on above: Anxiety Start: 07-14-2024 End: 07-14-2024 Bamboo flowsheet Isela Schmid BATTERY INSTALLER[employer]S Work Phone: [facility] Start: 07-14-2024 End: 07-14-2024 Bamboo flowsheet Isela Schmid BATTERY INSTALLER-S Work Phone: [facility] Start: 07-14-2024 End: 07-14-2024 ambulatory ISELA SCHMID Not Available Start: 07-03-2024 End: 07-03-2024 Bamboo flowsheet Lex Padrono CNM Work Phone: [facility] Start: 07-03-2024 End: 07-03-2024 Bamboo flowsheet Lexcoty Padrono CNM Work Phone: [facility] Start: 07-03-2024 End: 07-03-2024 Subsequent care visit Lex Raymond CN Work Phone: [facility] Comment on above: Encounter for prenat al care of first , second trimester (Primary Dx); related condition in second trimester Start: 07-03-2024 End: 07-03-2024 ambulatory LEXCoty PADRONO Not Available Start: 06-12-2024 End: 06-12-2024 Bamboo flowsheet Tricia Li [employer] Work Phone: [facility] Start: 06-12-2024 End: 06-12-2024 Bamboo flowsheet Tricia Li [employer] Work Phone: [facility] Start: 06-12-2024 End: 06-12-2024 Office outpatient visit 15 minutes Tricia Li [employer] Work Phone: [facility] Comment on above: Left ear pain (Prima ry Dx); Allergic rhinitis, unspecified seasonality, unspecified trigger Start: 06-12-2024 End: 06-12-2024 ambulatory TRICIA LI Not Available Start: 06-11-2024 End: 06-11-2024 Telephone encounter Lex MYERSM Work Phone: [facility] Start: 06-09-2024 End: 06-09-2024 Bamboo flowsheet Isela Torrie Sharmaine BATTERY INSTALLER[employer]S Work Phone: [facility] Start: 06-09-2024 End: 06-09-2024 Bamboo flowsheet Isela S Calhoun BATTERY INSTALLER[employer]S Work Phone: [facility] Start: 06-09-2024 End: 06-09-2024 ambulatory ISELA Torrie SHARMAINE Not Available Start: 06-05-2024 End: 06-05-2024 Bamboo flowsheet Lex Raymond CNM Work Phone: [facility] Start: 06-05-2024 End: 06-05-2024 Bamboo flowsheet Lex Raymond CNM Work Phone: [facility] Start: 06-05-2024 End: 06-05-2024 Subsequent care visit Lex MYERSM Work Phone: [facility] Comment on above: Earache on right (Pr imary Dx); Encounter for supervision of other normal , second trimester Start: 06-05-2024 End: 06-05-2024 ambulatory LEX RAYMOND Not Available Start: 05-26-2024 End: 05-26-2024 Office outpatient visit 15 minutes Tricia Li [employer] Work Phone: [facility] Comment on above: Other non-recurrent acute nonsuppurative otitis media of right ear (Primary Dx) Start: 05-26-2024 End: 05-26-2024 ambulatory TRICIA LI Not Available Start: 05-26-2024 End: 05-26-2024 Bamboo flowsheet Tricia Li [employer] Work Phone: [facility] Start: 05-26-2024 End: 05-26-2024 Bamboo flowsheet Tricia Li [employer] Work Phone: [facility] Start: 05-12-2024 End: 05-12-2024 Bamboo flowsheet Isela S Calhoun BATTERY INSTALLER[employer]S Work Phone: [facility] Start: 05-12-2024 End: 05-12-2024 Bamboo flowsheet Isela S Sharmaine BATTERY INSTALLER[employer]S Work Phone: [facility] Start: 05-12-2024 End: 05-12-2024 ambulatory ISELA S SHARMAINE Not Available Start: 05-08-2024 End: 05-08-2024 Subsequent care visit Lex Raymond CNM Work Phone: [facility] Comment on above: Encounter for prenat al care of first , first trimester (Primary Dx); Nausea/vomiting in ; examination or test, positive result Start: 05-08-2024 End: 05-08-2024 ambulatory LEX L FLORO Not Available Start: 05-08-2024 End: 05-08-2024 Bamboo flowsheet Lex L Floro CNM Work Phone: [facility] Start: 05-08-2024 End: 05-08-2024 Bamboo flowsheet Lex L Floro CNM Work Phone: [facility] Start: 04-24-2024 End: 04-24-2024 Refill Tricia Li [employer] Work Phone: [facility] Comment on above: Anxiety Start: 04-16-2024 End: 04-16-2024 Bamboo flowsheet Isela S Sharmaine BAT[employer]Y INSTALLER[employer]S Work Phone: [facility] Start: 04-16-2024 End: 04-16-2024 Bamboo flowsheet Isela S Calhoun BATTERY INSTALLER[employer]S Work Phone: [facility] Start: 04-16-2024 End: 04-16-2024 Telephone encounter Lex Padrono CNM Work Phone: [facility] Start: 04-16-2024 End: 04-16-2024 ambulatory ISELA S SHARMAINE Not Available Start: 04-08-2024 End: 04-08-2024 Bamboo flowsheet Lex Padrono CNM Work Phone: [facility] Start: 04-08-2024 End: 04-08-2024 Bamboo flowsheet Lex Padrono CNM Work Phone: [facility] Start: 04-08-2024 End: 04-08-2024 Office outpatient visit 15 minutes Lex Padrono CNM Work Phone: [facility] Comment on above: GA: 7w6d Start: 04-08-2024 End: 04-08-2024 ambulatory LEX PADRONO Not Available Start: 04-07-2024 End: 04-07-2024 Telephone encounter Lex Padrono CNM Work Phone: [facility] Start: [...] 12-03-2023 ambulatory ISELA S SHARMAINE Not Available Procedures Date Procedure Procedure Detail Performing Clinician Start: 11-06-2024 [facility] UA (CLEAN/CATCH) BUILDING MAINTENANCE TECHNICIAN/MICRO IF IND. Lex Padrono CNM Work Phone: Start: 11-06-2024 [facility] URINE MICROSCOPIC ONLY Lex Padrono CNM Work Phone: Start: 10-01-2024 End: 10-01-2024 Psychotherapy w/patient 60 minutes Anxiety Isela S Sharmaine [employer]ER[employer] Work Phone: Comment on above: Anxiety; Depression, unspecified depression type (CMS/HCC) Start: 09-22-2024 OB [facility] Lex Raymond CN Work Phone: Start: 08-27-2024 End: 08-27-2024 Psychotherapy w/patient 60 minutes Anxiety Isela S Sharmaine [employer] INST[employer]ER[employer] Work Phone: Comment on above: Anxiety; Depression, unspecified depression type (CMS/HCC) Start: 07-14-2024 End: 07-14-2024 Psychotherapy w/patient 60 minutes Anxiety Isela S Sharmaine [employer] Work Phone: Comment on above: Anxiety; Depression, unspecified depression type (CMS/HCC) Start: 06-09-2024 End: 06-09-2024 Psychotherapy w/patient 60 minutes Anxiety Isela S Sharmaine [employer] INST[employer]ER[employer] Work Phone: Comment on above: Anxiety; Depression, unspecified depression type (CMS/HCC) Start: 05-12-2024 End: 05-12-2024 Psychotherapy w/patient 60 minutes Anxiety Isela S Sharmaine [employer] INST[employer]ER[employer] Work Phone: Comment on above: Anxiety; Depression, unspecified depression type (CMS/HCC) Start: 04-16-2024 End: 04-16-2024 Psychotherapy w/patient 60 minutes Anxiety Isela S Sharmaine [employer] INST[employer]ER[employer]S Work Phone: Comment on above: Anxiety; Depression, unspecified depression type (CMS/HCC) Start: 04-08-2024 Urine test visual color cmprsn meths Lex Raymond [facility] Work Phone: Plan of Treatment Date Care Activity Detail Author Start: 04-13-2025 Influenza vaccination Influenz a Vaccine (Season Ended) [facility] Start: 12-22-2024 End: 12-22-2024 Social Work 12/22/2024 11:00 AM EDT Social Work [facility] [address] [place] [address] Isela Schmid S, [employer] [address] [place] [address] [facility] Start: 12-01-2024 End: 12-01-2024 Patient encounter procedure 12/01/2024 2:30 PM EDT Routine [facility] [address] [facility] [place] [address] Lex Raymond, CNM [address] [place] [address] [facility] Start: 11-24-2024 End: 11-24-2024 Patient encounter procedure 11/24/2024 1:30 PM EDT Routine [facility] [address] [facility] [address] Lex Raymond, CNM [address] [place] [address] [facility] Start: 11-17-2024 End: 11-17-2024 Patient encounter procedure 11/17/2024 1:30 PM EDT Routine [facility] [address] [facility] [place] [address] Lex Raymond, CNM [address] [place] [address] [facility] Start: 11-10-2024 End: 11-10-2024 Patient encounter procedure 11/10/2024 1:15 PM EDT Routine [facility] [address] [facility] [address] Lex Raymond, CNM [address] [place] [address] [facility] Start: 11-03-2024 End: 11-03-2025 STREPTOCCOUS, GROUP B CULTURE STREPTOCCOUS, GROUP B CULTURE Lab Routine screening for streptococcus B Expected: 11/03/2024 (Approximate), Expires: 11/03/2025 [facility] Work Phone: Comment on above: Expected: 11/03/2024 (Approximate), Expires: 11/03/2025 Start: 10-29-2024 End: 10-29-2024 Patient encounter procedure 10/29/2024 4:30 PM EDT Routine [facility] [address] [facility] [place] [phone] Lex Raymond, CNM [address] [place] [address] [facility] Start: 10-28-2024 End: 10-28-2024 Social Work 10/28/2024 2:00 PM EDT Social Work [facility] [address] [place] [address] Isela Schmid, BATTERY INSTALLER-S [address] [place] [address] [facility] Start: 10-09-2024 End: 10-09-2024 Patient encounter procedure [facility] Comment on above: Arrived Start: 10-01-2024 End: 10-01-2024 Social Work [facility] Comment on above: Arrived Start: 09-25-2024 End: 09-25-2024 Patient encounter procedure 09/25/2024 1:00 PM EST Routine [facility] [address] [facility] [phone] Lex Raymond, CNM [address] [place] [address] [facility] Start: 08-28-2024 End: 08-28-2025 [...] PM EST Routine [facility] [address] [place] [phone] Lex Raymond, LUCIA [address] [place] [address] [facility] Start: 08-27-2024 End: 08-27-2024 Social Work [facility] Comment on above: Arrived Start: 07-31-2024 End: 07-31-2024 Patient encounter procedure 07/31/2024 1:30 PM EST Routine [facility] [address] [place] [phone] Lex Raymond, [facility] [address] [place] [address] [facility] Start: 07-14-2024 End: 07-14-2024 [...] Office Visit [facility] [address] [place] [facility] [place] [phone] Tricia Li LECTURER IN MARKETING [address] [place] [facility] [place] [address] Arrived [facility] Comment on above: Arrived Start: 06-09-2024 End: 06-09-2024 Social Work 06/09/2024 9:00 AM EDT Social Work [facility] [address] [place] [place] [address] Isela Schmid S, BATTERY INSTALLER-S [address] [place] [facility] [place] [address] [facility] Start: 06-05-2024 End: 06-05-2024 Patient encounter procedure [facility] Comment on above: Arrived Start: 05-26-2024 End: 05-26-2024 Patient encounter procedure 05/26/2024 5:00 PM EDT Office Visit [facility] [address] [facility] [place] [phone] Tricia Li, LECTURER IN MARKETING [address] [place] [address] Arrived [facility] Comment on above: Arrived Start: 05-12-2024 End: 05-12-2024 Social Work [facility] Comment on above: Arrived Start: 05-08-2024 End: 05-08-2024 Patient encounter procedure [facility] Comment on above: Arrived Start: 05-08-2024 End: 05-08-2025 Bacteria identified in Urine by Culture Urine culture Microbiology Routine examination or test, positive result Expected: 05/08/2024 (Approximate), Expires: 05/08/2025 [facility] Comment on above: Expected: 05/08/2024 (Approximate), Expires: 05/08/2025 Start: 05-08-2024 End: 05-08-2025 DRUG TOX MONITORIGN 6 W/ CONF,URINE DRUG TOX MONITORIGN 6 W/ CONF,URINE Lab Routine examination or test, positive result Expected: 05/08/2024 (Approximate), Expires: 05/08/2025 [facility] Comment on above: Expected: 05/08/2024 (Approximate), Expires: 05/08/2025 Start: 05-08-2024 End: 05-08-2025 Neisseria gonorrhoeae DNA [Presence] in Cervical mucus by MARGO with probe detection C. trachomatis / N. gonorrhoeae, DNA probe Pathology and Cytology Routine examination or test, positive result Expected: 05/08/2024 (Approximate), Expires: 05/08/2025 [facility] Comment on above: Expected: 05/08/2024 (Approximate), Expires: 05/08/2025 Start: 05-08-2024 End: 05-08-2025 TSH W/REFLEX TO FT4 TSH W/REFLEX TO FT4 Lab Routine examination or test, positive result Expected: 05/08/2024 (Approximate), Expires: 05/08/2025 [facility] Comment on above: Expected: 05/08/2024 (Approximate), Expires: 05/08/2025 Start: 05-08-2024 End: 05-08-2025 URINALYSIS MICROSCOPIC URINALYSIS MICROSCOPIC Lab Routine examination or test, positive result Expected: 05/08/2024 (Approximate), Expires: 05/08/2025 [facility] Comment on above: Expected: 05/08/2024 (Approximate), Expires: 05/08/2025 Start: 04-16-2024 End: 04-16-2024 Social Work [facility] Comment on above: Arrived Start: 04-13-2024 Influenza vaccination Influenza Vacc ine (#1) [facility] Start: 04-09-2024 End: 04-09-2024 ambulatory 04/09/2024 11:30 AM EDT Initial [facility] [address] [facility] [phone] Lex Raymond, CNM [address] [place] [address] [facility] Start: 04-09-2024 End: 04-09-2024 Professional / ancillary services management 04/09/2024 11:30 AM EDT Ancillary Procedure [facility]TRAS[facility] [address] [phone] [facility] Start: 04-08-2024 End: 04-08-2024 ambulatory 04/08/2024 11:30 AM EDT Initial [facility] [address] [place] [phone] Lex Rayomnd, LUCIAM [address] [place] [address] Arrived [facility] Comment on above: Arrived ABO/Rh ABO/Rh Lab Routi ne examination or test, positive result Ordered: 05/08/2024 [facility] Comment on above: Ordered: 05/08/2024 Antibody screen Antibody screen Lab Routine examination or test, positive result Ordered: 05/08/2024 [facility] Comment on above: Ordered: 05/08/2024 CBC panel - Blood by Automated count CBC Lab Routine examination or test, positive result Ordered: 05/08/2024 [facility] Comment on above: Ordered: 05/08/2024 Hemoglobin A1c/Hemoglobin.total in Blood Hemoglobin A1c Lab Routine examination or test, positive result Ordered: 05/08/2024 [facility] Comment on above: Ordered: 05/08/2024 Hepatitis B virus surface Ag [Presence] in Serum or Plasma by Immunoassay Hepatitis B surface antigen Lab Routine examination or test, positive result Ordered: 05/08/2024 [facility] Work Phone: Comment on above: Ordered: 05/08/2024 Hepatitis C virus Ab [Presence] in Serum or Plasma by Immunoassay Hepatitis C antibody Lab Routine examination or test, positive result Ordered: 05/08/2024 [facility] Comment on above: Ordered: 05/08/2024 HIV-1/HIV-2 antigen/antibody combination immunoassay HIV-1 and HIV-2 antibodies Lab Routine examination or test, positive result Ordered: 05/08/2024 [facility] Comment on above: Ordered: 05/08/2024 Reagin Ab [Presence] in Serum by RPR RPR Lab Routine examination or test, positive result Ordered: 05/08/2024 [facility] Comment on above: Ordered: 05/08/2024 Rubella antibody, IgG Rubella an tibody, IgG Lab Routine examination or test, positive result Ordered: 05/08/2024 [facility] Comment on above: Ordered: 05/08/2024 Immunizations Immunization Date Immunization Notes Care Provider [facility] 11-01-2004 diphtheria, tetanus toxoids and acellular pertussis vaccine Lex Floro [facility] Work Phone: [facility] 11-01-2004 measles, mumps and rubella virus vaccine Lex Floro [facility] Work Phone: [facility] 11-01-2004 poliovirus vaccine, inactivated Lex Floro [facility] Work Phone: [facility] 02-25-2001 diphtheria, tetanus toxoids and acellular pertussis vaccine, unspecified formulation Lex Floro [facility] Work Phone: [facility] 02-25-2001 haemophilus influenz ae type b vaccine, conjugate unspecified formulation Lex [facility] Work Phone: [facility] 12-24-2000 measles, mumps and rubella virus vaccine Lex Floro [facility] Work Phone: [facility] 07-13-2000 diphtheria, tetanus toxoids and acellular pertussis vaccine, unspecified formulation Lex Floro [facility] Work Phone: [facility] 07-13-2000 haemophilus influenz ae type b conjugate and Hepatitis B vaccine Lex [facility] Work Phone: [facility] 07-13-2000 poliovirus vaccine, inactivated Lex Floro CNM Work Phone: [facility] 05-11-2000 diphtheria, tetanus toxoids and acellular pertussis vaccine, unspecified formulation Lex Floro CNM Work Phone: [facility] 05-11-2000 haemophilus influenz ae type b vaccine, conjugate unspecified formulation Lex Floro CNM Work Phone: [facility] 05-11-2000 poliovirus vaccine, inactivated Lex Floro CNM Work Phone: [facility] 03-09-2000 diphtheria, tetanus toxoids and acellular pertussis vaccine, unspecified formulation Lex Floro CNM Work Phone: [facility] 03-09-2000 haemophilus influenz ae type b conjugate and Hepatitis B vaccine Lex Floro CNM Work Phone: [facility] 03-09-2000 poliovirus vaccine, inactivated Lex Floro CNM Work Phone: [facility] 1999 hepatitis B vaccine, pediatric or pediatric/adolescent dosage Lex Floro CNM Work Phone: [facility] Payers Date Payer Category Payer [facility] Health Insurance [facility] [id number] 2022 Unknown [employer] [id number] 2022-Present [phone] [address] [address] [place] [address] [id number] 2022 Unknown [id number] 1969 Unknown [id number] 2.16.840.1.355911.3.579 .2.1258 1969 Unknown [id number] 2.16.840.1.361349.3.579 .2.1258 1969 Unknown [id number] 2.16.840.1.672130.3.579 .2.1258 1969 Unknown [id number] 2.16.840.1.439514.3.579 .2.1258 1969 Unknown [id number] 2.16.840.1.129367.3.579 .2.1258 1969 Unknown [id number] 2.16.840.1.741809.3.579 .2.1258 1969 Unknown [id number] 2.16.840.1.433701.3.579 .2.1258 1969 Unknown [id number] 2.16.840.1.901930.3.579 .2.1258 1969 Unknown [id number] 2.16.840.1.098448.3.579 .2.1258 1969 Unknown [id number] 2.16.840.1.219840.3.579 .2.1258 1969 Unknown [id number] 2.16.840.1.473348.3.579 .2.1258 1969 Unknown [id number] 2.16.840.1.859577.3.579 .2.1258 1969 Unknown [id number] 2.16.840.1.447831.3.579 .2.1258 1969 Unknown [id number] 2.16.840.1.292586.3.579 .2.1258 1969 Unknown [id number] 2.16.840.1.085148.3.579 .2.1258 1969 Unknown [id number] 2.16.840.1.341408.3.579 .2.1258 1969 Unknown [id number] 2.16.840.1.458738.3.579 .2.1258 1969 Unknown [id number] 2.16.840.1.033428.3.579 .2.1258 1969 Unknown [id number] 2.16.840.1.415374.3.579 .2.1258 1969 Unknown [id number] 2.16840.1.423057.3.579 .2.1258 1969 Unknown [id number] 2.840.1.240835.3.579 .2.1258 1969 Unknown [id number] 2.16840.1.502852.3.579 .2.1258 1969 Unknown [id number] 2.16840.1.377748.3.579 .2.1258 1969 Unknown [id number] 2.16840.1.424502.3.579 .2.1258 1969 Unknown [id number] 2.840.1.568580.3.579 .2.1258 1969 Unknown [id number] 2.16840.1.868740.3.579 .2.1258 1969 Unknown [id number] 2.16840.1.970921.3.579 .2.9 Social History Date Type Detail Facility Start: 07-17-2023 Tobacco smoking stat [facility] Never smoked tobacco [facility] Start: 07-17-2023 Tobacco use and exposure Smokeless t obacco non-user [facility] Start: 04-08-2024 End: 06-12-2024 Alcoholic beverage intake Lifetime non-drinker (finding) [facility] Start: 11-15-2023 End: 04-08-2024 History of Social function [facility] Start: 11-15-2023 End: 04-08-2024 Tobacco use panel [facility] Start: 02-01-2023 Education 21 [facility] Start: 02-01-2023 Alcohol Comment caffeine: 1-2 cups per day coffee, soda/pop [facility] Start: 02-27-2024 [facility] Start: 2000 Sex assigned at Not on file [facility] Start: 10-25-2022 Gender identity Identifies as female gender (finding) [facility] Clinical Notes 04-07-2024 to 11-17-2024 Lex Raymond, LUCIA - 11/17/2024 1:30 PM EDTLex Raymond, [facility] - 11/10/2024 1:15 PM EDJanice Raymond, [facility] - 11/03/2024 5:00 PM EDTLex Raymond, [facility] - 10/09/2024 1:00 PM EST Note Date & Type Note Facility 11-17-2024 History of Presen t illness Narrative Subjective No chief complaint on file. Elena Chopra is a 23 y.o. at 38w1d with a working estimated date of delivery [...] is complicated by: Objective Physical Exam weight: 155 lb Expected Total Weight Gain: 27 lb-39 lb Pregravid BMI: 18.31 BP: 118/80 Urine protein-negative Urine glucose-negative Assessment/Plan Diagnoses and all orders for this visit: Encounter for care of first , third trimester Nausea/vomiting in - ondansetron (Zofran) 8 MG tablet; Take 1 tablet (8 mg) by mouth 2 (two) times a day as needed for nausea Continue vitamin. Labs boyd. GBS positive in urine, will treat in labor. Expected mode of delivery Patient continues with intermittent nausea and vomiting. 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 Never knows when it's going to happen. I did review that she has gained 45 lbs and that I don't think she is losing weight due to the vomiting. PVU and agreed,. RX zofran sent and I did tell her that we can induce her and get her delivered if she is that sick. Patient will think about it. Follow up in 1 week for a routine visit. documented in this encounter [facility] 11-10-2024 History of Presen t illness Narrative Subjective No chief complaint on file. Elena Chopra is a 23 y.o. at 37w1d with a working estimated date of delivery [...] is complicated by: Objective Physical Exam weight: 155 lb Expected Total Weight Gain: 27 lb-39 lb Pregravid BMI: 18.31 BP: 114/70 Urine protein-negative Urine glucose-negative Assessment/Plan Continue vitamin. Labs reviewed. GBS taken. Expected mode of delivery Follow up in 1 week for a routine visit. documented in this encounter [facility] 11-03-2024 History of Presen t illness Narrative [...] a routine visit. documented in this encounter [facility] 10-09-2024 History of Presen t illness Narrative [...] a routine visit. documented in this encounter [facility] 09-25-2024 History of Presen t illness Narrative [...] sent to pharmacy. documented in this encounter [facility] 08-28-2024 History of Presen t illness Narrative [...] a routine visit. documented in this encounter [facility] 07-31-2024 History of Presen t illness Narrative [...] a routine visit. documented in this encounter [facility] 07-03-2024 History of Presen t illness Narrative [...] a routine visit. documented in this encounter [facility] 06-12-2024 History of Presen t illness Narrative [...] room every night. documented in this encounter [facility] 06-11-2024 Telephone encount er Note Was in - ear inf- still having pain and today is last day of antibiotic. Maurice Parker- [phone] [facility] 06-11-2024 Miscellaneous Notes Formattin g of this note might be different from the original. Was in - ear inf- still having pain and today is last day of antibiotic. Maurice Parker- [phone] documented in this encounter [facility] 06-05-2024 History of Presen t illness Narrative [...] a routine visit. documented in this encounter [facility] 05-26-2024 History of Presen t illness Narrative [...] for 7 days. documented in this encounter [facility] 05-08-2024 History of Presen t illness Narrative [...] a routine visit. documented in this encounter [facility] 04-16-2024 Telephone encount er Note Pt was sent to [facility] at her last appt due to dehydration and another appt was not scheduled, so she would like to schedule Currently she is at 7 weeks. [phone] [facility] 04-16-2024 Miscellaneous Notes Formattin g of this note might be different from the original. Pt was sent to [facility] at her last appt due to dehydration and another appt was not scheduled, so she would like to schedule Currently she is at 7 weeks. [phone] documented in this encounter [facility] 04-08-2024 History of Presen t illness Narrative [...] reviewed this encounter and updated as appropriate: @RULESMARTLINK([id number],TOBYESPROV)@@ RULESMARTLINK([id number],ALGYESPROV)@@R ULESM ARTLINK([id number],MEDYESPROV)@@RULESMA RTLINK([id number],PROBYESPROV)@@RULESMA RTLIN K([id number],MHYESPROV)@@RULESMARTLINK( [id number],SHYESPROV)@@RULESMARTLINK([id number], FHYESPROV)@@RULESMARTLINK([id number],SO HYESPROV)@ Review of Systems Objective Physical Exam [...] also given office phone number and [facility] number to call in case of an emergency or after hours needs. PVU and all questions answered. We did discuss place of delivery. Patient should plan to go to [facility] for all services unless an emergency and they need to go to the closest ER. We can make other arrangements possibly if patient would like to deliver at another facility but I did explain I am now at [facility] 100% of the time and would like to do all deliveries there. documented in this encounter [facility] 04-07-2024 Telephone encount er Note Please call Elena about medication you have discussed - ty [phone] [facility] 04-07-2024 Miscellaneous Notes Formattin g of this note might be different from the original. Please call Elena about medication you have discussed - ty [phone] documented in this encounter [facility] Evaluation note Diagnosis Other non-recurrent acute nonsuppurative otitis media of right ear- Primary documented in this encounter [facility]* Diagnosis Earache on right- Primary Encounter for supervision of other normal , second trimester documented in this encounter [facility]* Diagnosis Anxiety Anxiety state, unspecified [...] Streptococcus B documented in this encounter [facility]* Diagnosis Encounter for care of first , third trimester- Primary Nausea/vomiting in Unspecified vomiting of , unspecified as to episode of care documented in this encounter [facility] Diagnosis Encounter for care of first , third trimester- Primary Nausea/vomiting in Unspecified vomiting of , unspecified as to episode of care documented in this encounter [facility] Summary Purpose Family History No Family History Records Found Advance Directives No Advanced Directives Records Found Additional Source Comments Care Teams (unrecognized sec tion and content) Fibrous Plasterer Relationship Specialty Start Date End Date Leah Cramer MD [address] [place] [address] PCP - General Family Medicine 12/19/22 Fibrous Plasterer Relationship Specialty Start Date End Date Leah Cramer MD [address] [place] [address] PCP - General Family Medicine 12/19/22 Fibrous Plasterer Relationship Specialty Start Date End Date Leah Cramer MD [address] [place] [address] PCP - General Family Medicine 12/19/22 Fibrous Plasterer Relationship Specialty Start Date End Date Leah Cramer MD [address] [place] [address] PCP - General Family Medicine 12/19/22 Fibrous Plasterer Relationship Specialty Start Date End Date Leah Cramer MD [address] [place] [address] PCP - General Family Medicine 12/19/22 Fibrous Plasterer Relationship Specialty Start Date End Date Leah Cramer MD [address] [place] [address] PCP - General Family Medicine 12/19/22 Fibrous Plasterer Relationship Specialty Start Date End Date Leah Cramer MD [address] [place] [address] PCP - General Family Medicine 12/19/22 Fibrous Plasterer Relationship Specialty Start Date End Date Leah Cramer MD [address] [place] [address] PCP - General Family Medicine 12/19/22 Fibrous Plasterer Relationship Specialty Start Date End Date Leah Cramer MD [address] [place] [address] PCP - General Family Medicine 12/19/22 Fibrous Plasterer Relationship Specialty Start Date End Date Leah Cramer MD [address] [place] [address] PCP - General Family Medicine 12/19/22 Fibrous Plasterer Relationship Specialty Start Date End Date Leah Cramer MD [address] [place] [address] PCP - General Family Medicine 12/19/22 Fibrous Plasterer Relationship Specialty Start Date End Date Leah Cramer MD [address] [place] [address] PCP - General Family Medicine 12/19/22 Fibrous Plasterer Relationship Specialty Start Date End Date Leah Cramer MD [address] [place] [address] PCP - General Family Medicine 12/19/22 Fibrous Plasterer Relationship Specialty Start Date End Date Leah Cramer MD [address] [place] [address] PCP - General Family Medicine 12/19/22 Reason for Visit (unrecogniz ed section and content) Reason Comments URI Reason Comments counseling session Reason Comments Follow-up Reason Comments Med Refill INFORMATION SOURCE (unrecogn ized section and content) DATE CREATED AUTHOR 11/18/2024 [facility] EPIC FOR RECORDS PERTAINING TO PATIENTS [...] BE BASED ON THE PRIMARY CLINICAL RECORDS. [facility], [facility]. provides no warranty or guarantee of the accuracy or completeness of information in this document.
[2024-11-22 11:43] LABS: Bilirubin Urine NEGATIVE (NEGATIVE); Blood Urine NEGATIVE (NEGATIVE); Clarity Urine CLEAR (CLEAR); Color Urine LT. YELLOW (YELLOW); Glucose Urine UA NEGATIVE (NEGATIVE); Ketones Urine NEGATIVE (NEGATIVE); Leukocyte Esterase Urine SMALL (NEGATIVE); Nitrite Urine NEGATIVE (NEGATIVE); Protein Urine NEGATIVE (NEG/TRACE); Specific Gravity Urine <=1.005 (1.005-1.025); Urobilinogen Urine 0.2 EU/dL (0.2-1.0)
[2024-11-22 11:54] LABS: Amphetamine Screen Urine NEGATIVE (NEGATIVE); Barbiturates Screen Urine NEGATIVE (NEGATIVE); Benzodiazepines Screen Urine NEGATIVE (NEGATIVE); Buprenorphine Screen Urine NEGATIVE (NEGATIVE); Cannabinoid Screen Urine NEGATIVE (NEGATIVE); Cocaine Screen Urine NEGATIVE (NEGATIVE); Methadone Screen Urine NEGATIVE (NEGATIVE); Methamphetamines Screen Urine NEGATIVE (NEGATIVE); Opiate Screen Urine NEGATIVE (NEGATIVE); Oxycodone Screen Urine NEGATIVE (NEGATIVE); Phencyclidine Screen Urine NEGATIVE (NEGATIVE); Tricyclic Antidepressant Urine NEGATIVE (NEGATIVE)
[2024-11-22 11:58] LABS: Urine Microscopic Indicated YES
[2024-11-22 12:00] LABS: Bacteria Urine TRACE #/HPF (NONE SEEN); Cast Seen? NONE SEEN #/LPF (NONE SEEN); Crystals Seen? None Seen #/HPF (None Seen); Mucus Urine NONE SEEN (NONE SEEN); RBC Urine 0-2 #/HPF (0-2); Squamous Epithelial Cell Urine MODERATE #/LPF (NONE/RARE); Urine Culture Indicated YES-LC
[2024-11-22 12:07] LABS: Amnisure POSITIVE (NEGATIVE); Internal Control Within Normal Limits
[2024-11-22 13:17] LABS: Hematocrit 31.8 % (36.0-48.0); Hemoglobin 10.9 g/dL (12.0-16.0); Mean Corpuscular HGB Conc 34.3 g/dL (29.9-35.2); Mean Corpuscular Hemoglobin 34.2 pg (26.7-34.0); Mean Corpuscular Volume 99.7 fL (81.0-99.0); Mean Platelet Volume 12.3 fL (9.5-13.5); Platelet Count 183 10^3/uL (150-450); Red Blood Count 3.19 10^6/uL (4.20-5.40); Red Cell Distribution Width 12.3 % (11.0-15.0); White Blood Count 12.5 10^3/uL (4.0-11.0)
[2024-11-22] MEDS: LACTATED RINGER'S SOLUTION 1,000 ML 125 ML IV ×2 (13:28→18:24)
[2024-11-22] MEDS: PENICILLIN G POTASSIUM 5,000,000 UNIT in 0.9 % SODIUM CHLORIDE 100 ML 200 UNIT IV (13:29)
[2024-11-22] MEDS: OXYTOCIN/0.9 % SODIUM CHLORIDE 10 UNITS/500 ML PLAST..BAG 6 UNIT IV (16:14)
[2024-11-22] MEDS: 0.9 % SODIUM CHLORIDE 1,000 ML 1000 ML IV (16:59)
[2024-11-22] MEDS: PENICILLIN G POTASSIUM 2,500,000 UNIT in 0.9 % SODIUM CHLORIDE 50 ML 100 UNIT IV (17:23)
[2024-11-22] MEDS: NALBUPHINE HCL 10 MG/ML AMPULE IV (17:41)
[2024-11-22] MEDS: ROPIVACAINE HCL/PF 400 MG/200 ML PREMIX 6 MG EPIDURAL (19:07)
[2024-11-22] MEDS: LIDOCAINE HCL 1% 200 MG/20 ML MDV INJ (20:06)
[2024-11-22] MEDS: OXYTOCIN/0.9 % SODIUM CHLORIDE 20 UNITS/1,000 ML PLAST..BAG 125 UNIT IV (20:22)
--- NOTE | 2024-11-22 20:55 | P.EN_ITS ---
Event Note Event Note: Called to assist in a vaginal delivery of the supervisor scrap preparation. RML episiotomy had been performed. FHR with intermittent decels reaching the 40's-60's. Vacuum was applied. Delivered the head after three pop offs. Production Line Solderer completed the delivery. Also assisted with closure of a deep vaginal laceration.
[2024-11-22 21:37] LABS: Hematocrit 27.8 % (36.0-48.0); Hemoglobin 9.5 g/dL (12.0-16.0); Mean Corpuscular HGB Conc 34.2 g/dL (29.9-35.2); Mean Corpuscular Hemoglobin 34.2 pg (26.7-34.0); Mean Platelet Volume 12.4 fL (9.5-13.5); Platelet Count 190 10^3/uL (150-450); Red Blood Count 2.78 10^6/uL (4.20-5.40); Red Cell Distribution Width 12.4 % (11.0-15.0); White Blood Count 24.4 10^3/uL (4.0-11.0)
--- NOTE | 2024-11-22 21:43 | PM.OBHP ---
OB - H&P: HPI History of Present Illness Chief complaint: FBC CONTRACTIONS, WATER POSSIBLY BROKE : 1 Para: 0 Gestational age based on last menstrual period: 38.6 History of Present Dating criteria: LMP confirmed by 1st trimester US care: good care Ultrasounds: normal 1st trimester US and normal mid trimester US complications: hyperemesis and other (anemia, hyperemesis gravidarum) Medical complications OB: none Labs Blood type: B (+) positive Rubella: immune RPR/VDLR: nonreactive GBS status: positive HBsAG: negative Review of Systems ROS Status of ROS: 10 or more systems reviewed and unremarkable except as noted in history and below PFSH PFSH Medical History (Updated 11/22/24 @ 21:53 by LEX CALDERON APRN, NAKUL) in first trimester ?Z33.2 - Encounter for elective termination of (ICD-10) Surgical History (Updated 11/22/24 @ 13:46 by Elena Walter) H/O wisdom tooth extraction ?K08.409 - Partial loss of teeth, unspecified cause, unspecified class (ICD-10) Meds Home Medications and Allergies Home Medications ?Medication ?Instructions ?Recorded ?Confirmed ?Type sertraline 25 mg tablet (Zoloft) 25 mg PO Q24H 11/22/24 11/22/24 History Allergies Allergy/AdvReac Type Severity Reaction Status Date / Time peanut Allergy Severe Anaphylaxis Verified 11/22/24 11:35 peanut oil Allergy Severe Anaphylaxis Verified 11/22/24 11:35 Exam Constitutional Vital Signs, click to edit/add: Last Vital Signs Temp 96.3 F L 11/22/24 19:51 Pulse 90 11/22/24 21:40 Resp 16 11/22/24 16:13 BP 98/55 11/22/24 21:40 Documenting provider has reviewed patient's vital signs: yes Common normals: no apparent distress and oriented x3 General appearance: cooperative Orientation/consciousness: Yes awake, Yes oriented to person, Yes oriented to place and Yes oriented to time HENMT Common normals: normocephalic Eye Common normals: EOMs intact bilaterally General eye: normal appearance of both eyes Neck & C-Spine Common normals: full ROM Lymph Lymphatic: no lymphadenopathy noted Chest Common normals: inspection of chest normal Respiratory Common normals: normal respiratory effort, no retractions, no use of accessory muscles, clear to auscultation bilaterally and percussion normal Cardio Common normals: regular rate and regular rhythm Rate: regular rate Rhythm: regular rhythm GI Common normals: Normal to inspection, nondistended, normoactive bowel sounds present Inspection: normal to inspection Palpation: soft Common normals: no CVA tenderness Back & Pelvis Common normals: no CVA tenderness Extremity Common normals: normal to inspection Neuro Common normals: oriented x3 Sensorium/orientation: awake, alert, oriented to person, oriented to place and oriented to time Psych Common normals: mental status grossly normal, thought process normal, cooperative, affect normal, speech normal, activity/motor behavior normal, denies hallucinations, denies homicidal ideation and denies suicidal ideation Attitude: calm Thought process: normal thought process Results Labs Labs: Short CBC 11/22/24 11/22/24 Range/Units 13:11 21:25 WBC 12.5 H 24.4 H (4.0-11.0) 10^3/uL Hgb 10.9 L 9.5 L (12.0-16.0) g/dL Hct 31.8 L 27.8 L (36.0-48.0) % Plt Count 183 190 (150-450) 10^3/uL Urine 11/22/24 Range/Units 11:03 Urine Color Lt. yellow (YELLOW) Urine Clarity Clear (CLEAR) Urine pH 7.0 (5.0-9.0) Ur Specific [place] <=1.005 A (1.005-1.025) Urine Protein Negative (NEG/TRACE) mg/dL Urine Glucose (UA) Negative (NEGATIVE) mg/dL OB - A/P Assessment and Plan (1) Term : (2) Group B streptococcal bacteriuria: Plan admit for labor and delivery- routine orders
[2024-11-22 21:53] LABS: Lymphocytes Absolute Manual 1.22 10^3/uL (1.20-3.80); Monocytes Absolute Manual 0.73 10^3/uL (0.30-0.80); Segmented Neut Absolute Manual 22.44 10^3/uL (1.4-6.5)
--- NOTE | 2024-11-22 21:56 | PM.OBPRCVD ---
Procedure Intrapartal events: None Induction method: none Delivery monitor: external FHT and external uterine Route of delivery: vacuum extraction (Dr Hdz applied vacuum, head and this provider performed ) Episiotomy Description: right mediolateral L&D Laceration Description: perineal - 2nd degree, vaginal - 2nd degree and labial Delivery repair: Vicryl Estimated blood loss (mL): 700 Anesthesia type: Epidural Disposition: no change Delivery date: 11/22/24 Gender: female presentation: vertex Placental delivery description: Spontaneous cord description: 3 Vessels heart rate - 1 minute: 100 bpm or Greater respiratory effort - 1 minute: Spontaneous/Strong Cry muscle tone - 1 minute: Active Movement reflex response - 1 minute: Prompt Response color - 1 minute: Bluish Hands or Feet total score - 1 minute: 9 heart rate - 5 minute: 100 bpm or Greater respiratory effort - 5 minute: Spontaneous/Strong Cry muscle tone - 5 minute: Active Movement reflex response - 5 minute: Prompt Response color - 5 minute: Bluish Hands or Feet total score - 5 minute: 9
--- NOTE | 2024-11-22 22:15 | P.EN_ITS ---
Event Note Event Note: 711 pm Rn called me at home with report that patient received epidural and heart tones down in the 80's. Telephone order given for her to call Dr Hdz-[facility] [employer] in to assess patient. 1945i arrived on unit, Dr Hdz present at nurses station. Heart tones 80-90's. CNM to patients room, nurses are pushing with the patient. patient has good expulsatory effort. Heart tones down after pushing, moderate variability. Dr Hdz at nurses station. 2006 CNM performs episiotomy and calls sfor Dr Hdz to come to the room. Dr Hdz resumes care. Mity vac applied after episiotomy performed. I then extended episiotomy slightly, right medial lateral. Heart tones remain 80-90's with occasional 100 auscultated. 2015 vac assisted delivery. see vag delivry documentation. Dr Hdz repairs deep vaginal laceration. CNM repaired second degree perineal and left labial. Rectal exam performed with patients verbal consent. Intact.
[2024-11-23] VITALS (9 sets, daily range): BP systolic 106–136; BP diastolic 55–72; PULSE 71–88; TEMP 36.2–37.6
[2024-11-23] MEDS: IBUPROFEN 400 MG TABLET 800 MG PO ×3 (00:33→17:28)
[2024-11-23] MEDS: ONDANSETRON 4 MG RAPDIS TABLET SL (00:42)
--- NOTE | 2024-11-23 01:20 | PC.NURSE ---
Epidural removed with black tip intact.
--- NOTE | 2024-11-23 04:15 | PC.NURSE ---
0343-Patient up to bathroom, patient feels dizzy on the toilet. Patient brought back to bed via wheelchair and laid flat with cold rag on neck. Patient states she is feeling better and requests chicken broth. Broth, jello and saltine crackers brought in to patient.
[2024-11-23 06:24] LABS: Basophils Percent Auto 0.2 % (0.2-2.0); Eosinophils Percent Auto 0.2 % (0.9-7.0); Hematocrit 24.4 % (36.0-48.0); Hemoglobin 8.4 g/dL (12.0-16.0); Immature Granulocytes Abs Auto 0.08 10^3/uL (0.00-0.03); Immature Granulocytes Pct Auto 0.4 % (0.0-0.5); Lymphocytes Absolute Auto 1.4 10^3/uL (1.2-3.8); Lymphocytes Percent Auto 7.1 % (20.5-60.0); Mean Corpuscular HGB Conc 34.4 g/dL (29.9-35.2); Mean Corpuscular Hemoglobin 34.3 pg (26.7-34.0); Mean Corpuscular Volume 99.6 fL (81.0-99.0); Mean Platelet Volume 12.5 fL (9.5-13.5); Monocytes Absolute Auto 1.1 10^3/uL (0.3-0.8); Neutrophils Absolute Auto 16.4 10^3/uL (1.4-6.5); Neutrophils Percent Auto 86.1 % (43.0-75.0); Platelet Count 174 10^3/uL (150-450); Red Blood Count 2.45 10^6/uL (4.20-5.40); Red Cell Distribution Width 12.3 % (11.0-15.0)
[2024-11-23] MEDS: DOCUSATE SODIUM 100 MG CAPSULE PO ×2 (08:16→21:09)
[2024-11-23] MEDS: ACETAMINOPHEN 325 MG TABLET 650 MG PO (08:17)
[2024-11-23] MEDS: FERROUS SULFATE 325 MG TABLET PO ×2 (08:17→21:09)
--- NOTE | 2024-11-23 13:30 | PM.OBPN ---
OB - PN: Subj Subjective Interval history: PPD #1 S/P Vacuum assisted vaginal delivery Patient comments: no complaints and pain well controlled [place] infant status: doing well [place] feeding status: breast and bottle feeding Exam Constitutional Vital Signs, click to edit/add: Last Vital Signs Temp 99.6 F 11/23/24 09:30 Pulse 74 11/23/24 09:29 Resp 20 11/23/24 09:30 BP 106/57 11/23/24 09:29 O2 Del Method Room Air 11/23/24 09:34 Common normals: no apparent distress and oriented x3 General appearance: cooperative Respiratory Common normals: normal respiratory effort GI Common normals: Normal to inspection, nondistended, normoactive bowel sounds present Bimanual exam- vagina & uterus: uterus non-tender (At level of umbilicus, lochia minimal) Extremity Common normals: normal to inspection and no clubbing, cyanosis or edema Psych Common normals: mental status grossly normal Appearance: grossly normal Activity/motor behavior: appropriate eye contact Insight: insight good Results Labs Labs: Short CBC 11/22/24 11/23/24 Range/Units 21:25 06:20 WBC 24.4 H 19.0 H (4.0-11.0) 10^3/uL Hgb 9.5 L 8.4 L (12.0-16.0) g/dL Hct 27.8 L 24.4 L (36.0-48.0) % Plt Count 190 174 (150-450) 10^3/uL OB - PN: A/P Assessment and Plan (1) Vacuum-assisted vaginal delivery: Assessment and Plan: Routine care (2) anemia: Assessment and Plan: Ferrous Sulfate (3) 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
[2024-11-23] MEDS: SERTRALINE HCL 50 MG TABLET 25 MG PO (15:04)
[2024-11-23] MEDS: OXYCODONE HCL/ACETAMINOPHEN 5MG/325MG 1 TAB PO (15:56)
[2024-11-23] MEDS: ONDANSETRON PF 4 MG/2 ML VIAL IV (15:56)
[2024-11-23 16:39] LABS: Hematocrit 23.3 % (36.0-48.0)
[2024-11-23] MEDS: 0.9 % SODIUM CHLORIDE 1,000 ML 125 ML IV (16:42)
--- NOTE | 2024-11-23 17:00 | PM.OBPN ---
OB - PN: Subj Subjective Interval history: PPD #1 S/P Vacuum assisted vaginal delivery Narrative: Pt later has c/o pain at her episiotomy site. Called in to evaluate. Pt had a RML episiotomy. Dried blood was first removed with hydrogen peroxide. Her sutures were intact. Hemorrhoid area at 11 0'clock edematous about 1.5 cm, with no hematoma. Rectal exam was also done and normal. Advised pt on using the Lidocaine jelly, ice and Hydrocodone for the severe pains. She was counseled on the healing time. 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
[2024-11-23] MEDS: LIDOCAINE VISCOUS 2% 15 ML SOLUTION TOPICAL (17:27)
[2024-11-23] MEDS: OXYCODONE HCL/ACETAMINOPHEN 5MG/325MG 2 TAB PO (20:09)
[2024-11-24] MEDS: OXYCODONE HCL/ACETAMINOPHEN 5MG/325MG 2 TAB PO (01:01)
[2024-11-24] MEDS: IBUPROFEN 400 MG TABLET 800 MG PO ×3 (01:01→18:41)
[2024-11-24 01:03] VITALS: BP 106/66; PULSE 64; TEMP 36.4
--- NOTE | 2024-11-24 03:50 | PM.OBPN ---
OB - PN: Subj Subjective Interval history: PPD #1 S/P Vacuum assisted vaginal delivery Patient comments: other (patient states she is light headed and dizzy and feels tired ) [place] status: doing well feeding status: breast and bottle feeding Exam Constitutional Vital Signs, click to edit/add: Last Vital Signs Temp 97.6 F 11/24/24 01:03 Pulse 64 11/24/24 01:03 Resp 16 11/23/24 13:38 BP 106/66 11/24/24 01:03 O2 Del Method Room Air 11/23/24 20:00 Documenting provider has reviewed patient's vital signs: yes Common normals: no apparent distress, average body habitus, oriented x3, no limitations, healthy appearing, alert and well nourished Exam limitations: altered mental status General appearance: cooperative, comfortable, well kempt and well developed Orientation/consciousness: Yes awake, Yes oriented to person, Yes oriented to place and Yes oriented to time HENMT Common normals: normocephalic Eye Common normals: EOMs intact bilaterally General eye: normal appearance of both eyes Neck & C-Spine Common normals: full ROM and no lymphadenopathy General: normal visual inspection Lymph Lymphatic: no lymphadenopathy noted Chest Common normals: inspection of chest normal Respiratory Common normals: normal respiratory effort Effort & inspection: able to speak in complete sentences Cardio Common normals: regular rate and regular rhythm Rate: regular rate Rhythm: regular rhythm GI Common normals: Normal to inspection, nondistended, normoactive bowel sounds present Inspection: normal to inspection Palpation: soft Common normals: no CVA tenderness Back & Pelvis Common normals: no CVA tenderness Extremity Common normals: normal to inspection, full ROM, normal capillary refill, no joint enlargement, no clubbing, cyanosis or edema, no calf tenderness and no pedal edema Neuro Common normals: oriented x3 Sensorium/orientation: awake, alert, oriented to person, oriented to place and oriented to time Psych Common normals: mental status grossly normal, thought process normal, cooperative, affect normal, speech normal, activity/motor behavior normal, denies hallucinations, denies homicidal ideation and denies suicidal ideation Results Labs Labs: Short CBC 11/23/24 11/23/24 Range/Units 06:20 16:25 WBC 19.0 H (4.0-11.0) 10^3/uL Hgb 8.4 L 8.0 L (12.0-16.0) g/dL Hct 24.4 L 23.3 L* (36.0-48.0) % Plt Count 174 (150-450) 10^3/uL OB - PN: A/P Assessment and Plan (1) Vacuum-assisted vaginal delivery: (2) anemia: (3) 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
[2024-11-24 06:47] LABS: Hemoglobin 7.8 g/dL (12.0-16.0); Mean Corpuscular HGB Conc 34.2 g/dL (29.9-35.2); Mean Corpuscular Hemoglobin 34.5 pg (26.7-34.0); Mean Corpuscular Volume 100.9 fL (81.0-99.0); Mean Platelet Volume 12.2 fL (9.5-13.5); Platelet Count 149 10^3/uL (150-450); Red Blood Count 2.26 10^6/uL (4.20-5.40); Red Cell Distribution Width 12.6 % (11.0-15.0); White Blood Count 14.4 10^3/uL (4.0-11.0)
[2024-11-24 06:56] LABS: Hematocrit 22.8 % (36.0-48.0)
[2024-11-24 09:34] VITALS: BP 111/61; PULSE 65
[2024-11-24 09:35] VITALS: TEMP 36.8
[2024-11-24] MEDS: DOCUSATE SODIUM 100 MG CAPSULE PO (09:38)
[2024-11-24] MEDS: SERTRALINE HCL 50 MG TABLET 25 MG PO (09:38)
[2024-11-24] MEDS: FERROUS SULFATE 325 MG TABLET PO (09:38)
--- NOTE | 2024-11-24 11:33 | SWNOTE1 ---
[facility] consulted for assistance with WIC and Medicaid. SW stopped in to speak with pt. Father of baby in room as well. Pt voiced she is doing well and so is baby. She is attempting to breast feed and stated it is going alright. 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 Pt did voice they do have good support at home. She stated they do have everything they need in the home as well. Pt is still on her father's insurance at this time. She did ask about Medicaid. [facility] had printed off Medicaid irvin and phone number for jobs and family services. [facility] advised to call [facility] and they may recommend to completed an online form, which may be quicker. [facility] also provided pt with the phone number for [facility]. [facility] advised to call the phone number and they will get an appointment set. [facility] also provided the hours for WIC agency. Pt voiced appreciation. At this time she has no further needs. Pt hopeful for her and baby to be discharged today.
[2024-11-24 15:50] VITALS: TEMP 36.7
[2024-11-24 15:53] VITALS: BP 110/64; PULSE 72
== END 2024-11-24 20:50 | disposition home or self-care (01) | DRG 807 ==
PROVIDERS: Obstetrics & Gynecology; Admitting Provider Midwife; PCP Nurse Practitioner Family; Visit Provider Midwife
DX: O99.02 Anemia complicating childbirth (principal); Z37.0 Single live birth; O99.824 Streptococcus B carrier state complicating childbirth; O70.1 Second degree perineal laceration during delivery; O76 Abnormality in fetal heart rate and rhythm complicating labor and delivery; O99.344 Other mental disorders complicating childbirth; F41.9 Anxiety disorder, unspecified; Z3A.38 38 weeks gestation of pregnancy; Z79.899 Other long term (current) drug therapy; Z23 Encounter for immunization
CPT/HCPCS: 36415; 51701; 59050; 59410; 80307; 81001; 84112; 85007; 85014; 85018; 85025; 85027; 86850; 86900; 86901; 87086; 88307; J2300; J2405; J2540; J2795; Q0162